=== PATIENT | female | born 1935 | race Caucasian/White ===

== ENCOUNTER 2018-01-12 20:14 | Emergency (ER) | payer MEDICARE ==
[~2018-01-12] VITALS: Ht 154.9 cm; Wt 54.9 kg
[~2018-01-12 20:14] MED LIST: AMLODIPINE BESYL5 MG PO; ASPIR 8181 MG PO; BONIVA150 MG PO; DURAGESIC1 EAC1 TD; FOSAMAX70 MG PO; FUROSEMIDE40 MG PO; IBANDRONATE SO150 MG PO; LIPITOR20 MG PO; LIPITOR40 MG PO; LOSARTAN POTAS100 MG PO; PANTOPRAZOLE SO40 MG PO
[2018-01-12] MEDS ORDERED: DIATRIZOATE MEGL/DIATRIZOA SOD 30 ML BTL PO ONE (21:00)
[2018-01-12 21:26] LABS: BILIRUBIN,URINE NEGATIVE (NEGATIVE); CLARITY,URINE CLEAR (CLEAR); COLOR,URINE YELLOW (YELLOW); KETONES,URINE NEGATIVE (NEGATIVE); LEUKOCYTE ESTERASE ,URINE TRACE (NEGATIVE); NITRITE,URINE NEGATIVE (NEGATIVE); PROTEIN,URINE DIPSTICK NEGATIVE (NEGATIVE); URINE UROBILINOGEN 0.2 mg/dL (0.2 - 1)
[2018-01-12 21:47] LABS: BACTERIA,URINE RARE /HPF; EPITHELIAL CELLS,URINE FEW /LPF; RBC,URINE 0-5 /HPF (0-5); WBC,URINE (MAN) 0-5 /HPF (0-5)
[2018-01-12 23:02] LABS: BASOPHILS % 0.1 % (0.0-1.0); EOSINOPHILS % 0.1 % (0.0-6.0); HEMATOCRIT 40.1 % (34.2-44.1); HEMOGLOBIN 13.9 g/dL (12.0-16.0); LYMPHOCYTES # (AUTO) 1.4 (1.0-3.2); LYMPHOCYTES % 16.9 % (18.0-39.1); MEAN CORPUSCULAR HEMOGLOBIN 31.7 pg (28-32); MEAN CORPUSCULAR HGB CONC 34.7 g/dL (31-35); MEAN CORPUSCULAR VOLUME 91.3 fL (81-99); MONOCYTES # (AUTO) 0.7 (0.2-0.8); MONOCYTES % 8.3 % (4.4-11.3); NEUTROPHILS % 74.4 % (38.7-80.0); PLATELET COUNT 250 x10e3/uL (140-360); RED BLOOD COUNT 4.39 x10e6/uL (3.6-5.1); RED CELL DISTRIBUTION WIDTH 13.6 % (11.7-14.4)
[2018-01-12 23:16] LABS: INR 1.01; PROTHROMBIN TIME 12.5 seconds (11.9-14.5)
[2018-01-12 23:26] LABS: ALBUMIN 4.1 g/dL (3.5-5.0); ALBUMIN/GLOBULIN RATIO 0.9 (0.8-2.0); ANION GAP 16.8 mmol/L (8-16); CALCIUM 9.7 mg/dL (8.4-10.2); CREATININE, SERUM 1.06 mg/dL (0.57-1.11); POTASSIUM 4.8 mmol/L (3.5-5.1)
--- NOTE | 2018-01-13 00:32 | Diagnostic Imaging Report ---
EXAM: CT ABDOMEN AND PELVIS without IV CONTRAST ORDER DATE: 01/12/2018 8:52 PM Time stamp on Exam: 0000 hours INDICATION: Rectal bleeding, lower abdominal pain COMPARISON: None TECHNIQUE: The abdomen and pelvis were scanned using a multidetector helical scanner. Coronal and sagittal reformations were obtained. Routine protocol performed. IV Contrast: None Oral Contrast: Gastrografin CTDIvol has been reviewed. It is below the limits set by the Radiation Protocol Committee (RPC). FINDINGS: LOWER THORAX: Emphysematous changes. No consolidations. LIVER: No masses BILIARY: Cholecystectomy. No ductal dilation. SPLEEN: No masses PANCREAS: No masses ADRENALS: No nodules RIGHT KIDNEY: No nephroureterolithiasis or hydronephrosis. LEFT KIDNEY: No nephroureterolithiasis or hydronephrosis. GI TRACT: Large hiatal hernia with the majority of the stomach intrathoracic. No bowel obstruction. No pericolonic inflammation. VESSELS: Marked atherosclerotic changes of the abdominal aorta without aneurysm. PERITONEUM/RETROPERITONEUM: No free air or fluid LYMPH NODES: No lymphadenopathy REPRODUCTIVE ORGANS: Appropriate for age. Likely calcified uterine fibroid measuring approximately 1.5 cm. BLADDER: Normal SOFT TISSUES: Normal BONES: Chronic displaced fractures of the right superior and inferior pubic rami and likely nondisplaced old fractures of the left inferior and superior pubic rami. Sclerosis of the bilateral sacrum and linear lucencies consistent with sacral insufficiency fractures. Chronic appearing nondisplaced fracture of the right L5 transverse process. Grade 1 anterolisthesis of L5 with respect to S1. IMPRESSION: No CT findings to explain patient's rectal bleeding and lower abdominal pain. No evidence of diverticulitis or bowel obstruction. Chronic sacral insufficiency fractures, old fractures of the bilateral pubic rami and right L5 transverse process. Large hiatal hernia with nearly the entire stomach intrathoracic. Signed by: Dr. Gely Nice M.D. on 01/13/2018 12:28 AM
== END 2018-01-13 02:27 | disposition home or self-care (01) ==
LOC: ER 20:14
DX: K62.5 Hemorrhage of anus and rectum (principal); K64.4 Residual hemorrhoidal skin tags; I10 Essential (primary) hypertension; E78.5 Hyperlipidemia, unspecified; Z85.048 Personal history of other malignant neoplasm of rectum, rectosigmoid junction, and anus
CPT/HCPCS: 36415; 74176; 80053; 81001; 85025; 85610; 85730; 86850; 86900; 99284

== ENCOUNTER 2018-04-05 14:31 | Inpatient (IN) | payer MEDICARE ==
[~2018-04-05] VITALS: Ht 152.4 cm; Wt 54.9 kg
--- OUTSIDE RECORDS SUMMARY | 2018-04-05 14:35 | XMS REPORT ---
Author Author [facility] Address Unknown Phone Unavailable Care Team Providers Care Efficiency Clerk Name Role Phone ODILIA MARTE Unavailable Unavailable Problems This patient has no known problems. Allergies, Adverse Reactions, Alerts This patient has no known allergies or adverse reactions. Medications This patient has no known medications. Results Test Description Test Time Test Comments Text Results Atomic Results Result Comments CT ABDOMEN/PELVIS WO [place] [address] [place] [address] Patient Name: ITA ALBARRAN MR #: [id number] : 1935 Age/Sex: 82/F Req #: [id number] Adm Physician: Ordered by: ODILIA MARTE MD Report #: [id number] Location: ER Room/Bed: ___ Procedure: [id number] CT/CT ABDOMEN/PELVIS WO Exam Date: 01/12/18 Exam Time: 2358 REPORT STATUS: Signed EXAM: CT ABDOMEN AND PELVIS without IV CONTRAST ORDER DATE: 01/12/2018 8:52 PM Time stamp on Exam: 0000 hours INDICATION: Rectal bleeding, lower abdominal pain COMPARISON: None TECHNIQUE: The abdomen and pelvis were scanned using a multidetector helical scanner. Coronal and sagittal reformations were obtained. Routine protocol performed. IV Contrast: None Oral Contrast: Gastrografin CTDIvol has been reviewed. It is below the limits set by the Radiation Protocol Committee (RPC). FINDINGS: LOWER THORAX: Emphysematous changes. No consolidations. LIVER: No masses BILIARY: Cholecystectomy. No ductal dilation. SPLEEN: No masses PANCREAS: No masses ADRENALS: No nodules RIGHT KIDNEY: No nephroureterolithiasis or hydronephrosis. LEFT KIDNEY: No nephroureterolithiasis or hydronephrosis. GI TRACT: Large hiatal hernia with the majority of the stomach intrathoracic. No bowel obstruction. No pericolonic inflammation. VESSELS: Marked atherosclerotic changes of the abdominal aorta without aneurysm. PERITONEUM/RETROPERITONEUM: No free air or fluid LYMPH NODES: No lymphadenopathy REPRODUCTIVE ORGANS: Appropriate for age. Likely calcified uterine fibroid measuring approximately 1.5 cm. BLADDER: Normal SOFT TISSUES: Normal BONES: Chronic displaced fractures of the right superior and inferior pubic rami and likely nondisplaced old fractures of the left inferior and superior pubic rami. Sclerosis of the bilateral sacrum and linear lucencies consistent with sacral insufficiency fractures. Chronic appearing nondisplaced fracture of the right L5 transverse process. Grade 1 anterolisthesis of L5 with respect to S1. IMPRESSION: No CT findings to explain patient's rectal bleeding and lower abdominal pain. No evidence of diverticulitis or bowel obstruction. Chronic sacral insufficiency fractures , old fractures of the bilateral pubic rami and right L5 transverse process. Large hiatal hernia with nearly the entire stomach intrathoracic. Signed by: Dr. Elio Guerra M.D. on 01/13/2018 12:28 AM Dictated By : ELIO GUERRA MD 002 Transcribed By: TONEY on 01/13/1827 COPY TO: ODILIA MARTE MD
--- OUTSIDE RECORDS SUMMARY | 2018-04-05 14:35 | XMS REPORT | Continuity of Care Document ---
Author Author [facility] Organization [facility] Address [address] [place] [address] Phone Unavailable Care Team Providers Care Orthodontic Laboratory Technician Name Role Phone GÓMEZ MUÑOZ MD PCP Insurance Providers Guarantor Ita Albarran V Address [address] [place] [address] Email [email or web address] Payer AAR Policy Number [id number] Subscriber's Name Ita Albarran Relationship 18 Self / Same As Patient Effective Date 17 Payer Medicare A & B Policy Number [id number] Subscriber's Name WhiteIta Relationship 18 Self / Same As Patient Group Number [id number] Group Name UNEMPLOYED Effective Date 99 Advance Directives Directive Response Recorded Date/Time Does the patient have an advance directive? No 05/06/17 10:00pm If yes, is advance directive on file with [facility]? No 05/06/17 10:00pm If not on file with [facility] will patient provide a copy? No 01/12/18 8:10pm Do you have a Directive to Physician? No 01/12/18 8:10pm Do you have a Medical Power of Ladle Car Operator? No 01/12/18 8:10pm Do you have an out of hospital Do Not Resuscitate Order? No 01/12/18 8:10pm Do you have any special needs we should be aware of? No 01/12/18 8:10pm Do you have a support person here with you today? Yes 01/12/18 8:10pm Did patient receive Notice of Privacy Practices? Yes 01/12/18 8:10pm Did patient receive patient rights and responsibilities? Yes 01/12/18 8:10pm Problems No problem information available. Medications Current Home Medications Medication Dose Units Route Directions Days Qty Instructions Start Date Alendronate Sodium (Fosamax) 70 Mg Tablet 70 Mg Oral Use As Directed Amlodipine Besylate 5 Mg Tablet 5 Mg Oral Daily 30 Tab Aspirin (Aspir 81) 81 Mg Tablet. 81 Mg Oral Daily Atorvastatin Calcium (Lipitor) 20 Mg Tablet 20 Mg Oral Daily 30 Tab Fentanyl (Duragesic) 1 Each Patch.td72 1 Patch Transderm Use As Directed as needed for Pain Losartan Potassium 100 Mg Tablet 100 Mg Oral Daily Pantoprazole Sodium (Protonix) 40 Mg Tablet. 80 Mg Oral Daily Past Home Medications Medication Directions Ordered Status Atorvastatin Calcium (Lipitor) 40 Mg Tablet, 40 Mg Oral Daily Discontinued Furosemide 40 Mg Tablet, 40 Mg Oral Daily Discontinued Ibandronate Sodium 150 Mg Tablet, 150 Mg Oral Mthly Discontinued Ibandronate Sodium (Boniva) 150 Mg Tab, 150 Mg Oral Montyly Discontinued Social History Social History Problem Response Recorded Date/Time Onset Date Status Hx Psychiatric Problems Y - depression 05/06/2017 10:00pm Not Applicable Not Applicable Hx Eating Disorder No 05/06/2017 10:00pm Not Applicable Not Applicable Hx Substance Use Disorder No 05/06/2017 10:00pm Not Applicable Not Applicable Hx Depression Yes 05/06/2017 10:00pm Not Applicable Not Applicable Hx Alcohol Use No 05/06/2017 10:00pm Not Applicable Not Applicable Hx Substance Use Treatment No 05/06/2017 10:00pm Not Applicable Not Applicable Hx Physical Abuse No 05/06/2017 10:00pm Not Applicable Not Applicable Hospital Discharge Instructions No hospital discharge instruction information available. Plan of Care Discharge Date 01/13/18 2:27am Disposition HOME, SELF-CARE Condition at Discharge Stable Instructions/Education Provided Hemorrhoids Forms Provided Work/School Excuse Prescriptions See Medication Section Referrals GÓMEZ MUÑOZ MD Order Date: Call for an appointment Address: [address] [place] [id number] Additional Instructions/Education dc home return to the er with any emergent conditions take meds as directed follow up with pcp Functional Status No functional status information available. Allergies, Adverse Reactions, Alerts Allergen Type Severity Reaction Status Last Updated Morphine Allergy Mild Active 06/06/17 Codeine Allergy Mild SICK Active 06/06/17 Immunizations No immunization information available. Vital Signs Acute Vital Signs Vital Response Date/Time Temperature (Fahrenheit) 97.9 degrees F (97.6 - 99.5) 05/09/2017 8:16am Pulse Pulse Rate (adult) 83 bpm (60 - 90) 06/06/2017 10:04pm Respiratory Rate 20 bpm (12 - 24) 06/06/2017 10:04pm Blood Pressure 158/82 mm Hg 06/06/2017 10:04pm Height 5 ft 1 in 01/12/2018 8:53pm Weight 121 lb 01/12/2018 8:53pm Body Mass Index 22.9 kg/m^2 01/12/2018 8:53pm Results Laboratory Results Test Name Result Units Flags Reference Collection Date/Time Result Date/ Time Comments Creatine Kinase 38 IU/L 29-168 05/06/2017 2:32pm 05/06/2017 3:32pm Creatine Kinase MB 0.60 ng/mL 0.00-5.00 05/06/2017 2:32pm 05/06/2017 3: 32pm Troponin I 0.010 ng/mL 0-0.300 05/06/2017 2:32pm 05/06/2017 3:32pm White Blood Count 8.03 x10e3/uL 4.8-10.8 01/12/2018 10:31pm 01/12/2018 11:04pm Red Blood Count 4.39 x10e6/uL 3.6-5.1 01/12/2018 10:31pm 01/12/2018 11: 04pm Hemoglobin 13.9 g/dL 12.0-16.0 01/12/2018 10:31pm 01/12/2018 11:04pm Hematocrit 40.1 % 34.2-44.1 01/12/2018 10:31pm 01/12/2018 11:04pm Mean Corpuscular Volume 91.3 fL 81-99 01/12/2018 10:31pm 01/12/2018 11: 04pm Mean Corpuscular Hemoglobin 31.7 pg 28-32 01/12/2018 10:[facility] 2017 11:04pm Mean Corpuscular Hemoglobin Concent 34.7 g/dL 31-35 01/12/2018 10:[facility] 01/12/2018 11:04pm Red Cell Distribution Width 13.6 % 11.7-14.4 01/12/2018 10:[facility] 2017 11:04pm Platelet Count 250 x10e3/uL 140-360 01/12/2018 10:[facility] 01/12/2018 11: 04pm Neutrophils (%) (Auto) 74.4 % 38.7-80.0 01/12/2018 10:[facility] 01/12/2018 11:04pm Lymphocytes (%) (Auto) 16.9 % L 18.0-39.1 01/12/2018 10:[facility] 01/12/2018 11:04pm Monocytes (%) (Auto) 8.3 % 4.4-11.3 01/12/2018 10:[facility] 01/12/2018 11: 04pm Eosinophils (%) (Auto) 0.1 % 0.0-6.0 01/12/2018 10:[facility] 01/12/2018 11: 04pm Basophils (%) (Auto) 0.1 % 0.0-1.0 01/12/2018 10:[facility] 01/12/2018 11: 04pm IM GRANULOCYTES % 0.2 % 0.0-1.0 01/12/2018 10:[facility] 01/12/2018 11:04pm Neutrophils # (Auto) 6.0 2.1-6.9 01/12/2018 10:[facility] 01/12/2018 11: 04pm Lymphocytes # (Auto) 1.4 1.0-3.2 01/12/2018 10:[facility] 01/12/2018 11: 04pm Monocytes # (Auto) 0.7 0.2-0.8 01/12/2018 10:[facility] 01/12/2018 11:04pm Eosinophils # (Auto) 0.0 0.0-0.4 01/12/2018 10:[facility] 01/12/2018 11: 04pm Basophils # (Auto) 0.0 0.0-0.1 01/12/2018 10:[facility] 01/12/2018 11:04pm Absolute Immature Granulocyte (auto 0.02 x10e3/uL 0-0.1 01/12/2018 10: 31pm 01/12/2018 11:04pm Prothrombin Time 12.5 seconds 11.9-14.5 01/12/2018 10:31pm 01/12/2018 11:18pm Prothromb Time International Ratio 1.01 01/12/2018 10:31pm 2017 11:18pm Oral Anticoagulant Therapy INR Values: 1. Low Intensity Therapy 1.5 - 2.0 2. Moderate Intensity Therapy 2.0 - 3.0 3. High Intensity Therapy(1) 2.5 - 3.5 4. High Intensity Therapy(2) 3.0 - 4.0 5. Panic Value INR > 5.0 Activated Partial Thromboplast Time 32.0 seconds 23.8-35.5 01/12/2018 10 :31pm 01/12/2018 11:18pm Urine Color YELLOW YELLOW 01/12/2018 9:15pm 01/12/2018 9:30pm Urine Clarity CLEAR CLEAR 01/12/2018 9:15pm 01/12/2018 9:30pm Urine Specific [place] 1.010 1.010-1.025 01/12/2018 9:15pm 2017 9:30pm Urine pH 8 H 5 - 7 01/12/2018 9:15pm 01/12/2018 9:30pm Urine Leukocyte Esterase TRACE H NEGATIVE 01/12/2018 9:15pm 2017 9:30pm Urine Nitrite NEGATIVE NEGATIVE 01/12/2018 9:15pm 01/12/2018 9:30pm Urine Protein NEGATIVE NEGATIVE 01/12/2018 9:15pm 01/12/2018 9:30pm Urine Glucose (UA) NEGATIVE NEGATIVE 01/12/2018 9:15pm 01/12/2018 9: 30pm Urine Ketones NEGATIVE NEGATIVE 01/12/2018 9:15pm 01/12/2018 9:30pm Urine Urobilinogen 0.2 mg/dL 0.2 - 1 01/12/2018 9:15pm 01/12/2018 9: 30pm Urine Bilirubin NEGATIVE NEGATIVE 01/12/2018 9:15pm 01/12/2018 9: 30pm Urine Blood 1+ H NEGATIVE 01/12/2018 9:15pm 01/12/2018 9:30pm Urine WBC 0-5 /HPF 0-5 01/12/2018 9:15pm 01/12/2018 9:47pm Urine RBC 0-5 /HPF 0-5 01/12/2018 9:15pm 01/12/2018 9:47pm Urine Bacteria RARE /HPF NONE 01/12/2018 9:15pm 01/12/2018 9:47pm Urine Epithelial Cells FEW /LPF NONE 01/12/2018 9:15pm 01/12/2018 9: 47pm Sodium Level 133 mmol/L L 136-145 01/12/2018 10:31p01/12/2018 11:27pm Potassium Level 4.8 mmol/L 3.5-5.1 01/12/2018 10:31p01/12/2018 11: 27pm Chloride Level 96 mmol/L L 98-107 01/12/2018 10:31p01/12/2018 11:27pm Carbon Dioxide Level 25 mmol/L 22-29 01/12/2018 10:31p01/12/2018 11: 27pm Anion Gap 16.8 mmol/L H 8-16 01/12/2018 10:31p01/12/2018 11:27pm Blood Urea Nitrogen 9 mg/dL 7-01/12/2018 10:01/12/2018 11:27pm Creatinine 1.06 mg/dL 0.57-1.11 01/12/2018 10:01/12/2018 11:27pm BUN/Creatinine Ratio 8 6-01/12/2018 10:31p01/12/2018 11:27pm Estimat Glomerular Filtration Rate 50 ML/MIN L 60- 01/12/2018 10:31p 11:27pm Ranges were taken from the National Kidney Disease Education Program and the National Kidney Foundation literature. Reference ranges: 60 or greater: Normal 16-59 (for 3 consecutive months): Chronic kidney disease 15 or less: Kidney failure Glucose Level 106 mg/dL 74-118 01/12/2018 10:31p01/12/2018 11:27pm Calcium Level 9.7 mg/dL 8.4-10.2 01/12/2018 10:31p01/12/2018 11:27pm Total Bilirubin 0.6 mg/dL 0.2-1.2 01/12/2018 10:31p01/12/2018 11: 27pm Aspartate Amino Transf (AST/SGOT) 30 IU/L 5-34 01/12/2018 10:31pm 01/12 11:27pm Alanine Aminotransferase (ALT/SGPT) 19 IU/L 0-55 01/12/2018 10:31pm 11:27pm Total Protein 8.6 g/dL H 6.5-8.1 01/12/2018 10:31pm 01/12/2018 11:27pm Albumin 4.1 g/dL 3.5-5.0 01/12/2018 10:31pm 01/12/2018 11:27pm Globulin 4.5 g/dL H 2.3-3.5 01/12/2018 10:31pm 01/12/2018 11:27pm Albumin/Globulin Ratio 0.9 0.8-2.0 01/12/2018 10:31pm 01/12/2018 11: 27pm Alkaline Phosphatase 64 IU/L 40-150 01/12/2018 10:31pm 01/12/2018 11: 27pm Procedures Procedure Status Date Provider(s) CT of abdomen and pelvis without contrast Active 03/26/[address] of abdomen and pelvis without contrast Active 04/21/[address] of abdomen and pelvis without contrast Active 01/12/18 ODILIA MARTE MD Encounters Encounter Location Arrival/Admit Date Discharge/Depart Date Attending Provider [facility]ed [facility] 01/12/18 8:14pm 2:27am ODILIA MARTE MD [facility]arted Emergency [facility] 06/06/17 5:01pm 10:10pm NILES CASTANON MD Discharged Inpatient (obs) [facility] 05/06/17 5:03pm 11:11am GÓMEZ MUÑOZ MD Registered Clinic [facility] 05/06/17 12:50pm GÓMEZ MUÑOZ MD Registered Clinic [facility] 04/21/17 2:47pm FARHANA DONG MD Registered Clinic [facility] 03/26/17 10:36am LIO ANDERSON MD
[2018-04-05] MEDS ORDERED: ONDANSETRON HCL 4 MG ORAL DISINTEGRATING TAB PO ONE (15:15)
--- NOTE | 2018-04-05 16:36 | Diagnostic Imaging Report ---
Abdomen/KUB INDICATION: Bloating, constipation COMPARISON: CT abdomen/pelvis 01/12/2018. FINDINGS: Image obtained at 1556 hours. Lines, tubes: None Bowel: Gaseous distention of the large bowel without significant dilatation. No dilated small bowel loops. No significant stool burden in the colon. No pneumatosis Calcifications: Pelvic phleboliths are redemonstrated. Cholecystectomy clips are stable. Organomegaly: None Bones: Diffusely demineralized. Levoscoliosis of the lumbar spine is stable. IMPRESSION: Gaseous distention of the large bowel without significant stool burden. No dilated small bowel loops. Signed by: Dr. Abbie Boone MD on 04/05/2018 4:32 PM
[2018-04-05] MEDS ORDERED: HYDROMORPHONE 1MG/1ML INJ IV STA ×2 (16:58→21:12)
[2018-04-05] MEDS ORDERED: SODIUM CHLORIDE 0.9% 1000ML 1,000 ML IV STA (16:58)
[2018-04-05 17:40] LABS: BASOPHILS % 0.4 % (0.0-1.0); EOSINOPHILS % 0.2 % (0.0-6.0); HEMATOCRIT 37.1 % (34.2-44.1); HEMOGLOBIN 12.8 g/dL (12.0-16.0); LYMPHOCYTES # (AUTO) 1.1 (1.0-3.2); MEAN CORPUSCULAR HEMOGLOBIN 32.7 pg (28-32); MEAN CORPUSCULAR HGB CONC 34.5 g/dL (31-35); MEAN CORPUSCULAR VOLUME 94.9 fL (81-99); MONOCYTES # (AUTO) 0.5 (0.2-0.8); MONOCYTES % 8.9 % (4.4-11.3); NEUTROPHILS # (AUTO) 3.7 (2.1-6.9); NEUTROPHILS % 69.3 % (38.7-80.0); PLATELET COUNT 263 x10e3/uL (140-360); RED BLOOD COUNT 3.91 x10e6/uL (3.6-5.1); RED CELL DISTRIBUTION WIDTH 12.9 % (11.7-14.4)
[2018-04-05 17:41] LABS: CLARITY,URINE SL CLOUDY (CLEAR); COLOR,URINE YELLOW (YELLOW); LEUKOCYTE ESTERASE ,URINE NEGATIVE (NEGATIVE); NITRITE,URINE NEGATIVE (NEGATIVE); PROTEIN,URINE DIPSTICK 2+ (NEGATIVE)
[2018-04-05 17:42] LABS: BILIRUBIN,URINE NEGATIVE (NEGATIVE); KETONES,URINE NEGATIVE (NEGATIVE); URINE UROBILINOGEN 0.2 mg/dL (0.2 - 1)
[2018-04-05 17:55] LABS: AMORPHOUS SEDIMENT,URINE MANY (FEW); BACTERIA,URINE MANY /HPF; WBC,URINE (MAN) 0-5 /HPF (0-5)
[2018-04-05 17:57] LABS: ALANINE AMINOTRANSFERASE 16 IU/L (0-55); ALBUMIN 3.8 g/dL (3.5-5.0); ALBUMIN/GLOBULIN RATIO 1.1 (0.8-2.0); ALKALINE PHOSPHATASE 69 IU/L (40-150); ANION GAP 14.5 mmol/L (8-16); BLOOD UREA NITROGEN 11 mg/dL (7-26); BUN/CREATININE RATIO 15 (6-25); CALCIUM 9.9 mg/dL (8.4-10.2); CARBON DIOXIDE 27 mmol/L (22-29); CHLORIDE 99 mmol/L (98-107); CREATININE, SERUM 0.74 mg/dL (0.57-1.11); EST GLOMERULAR FILTRATION RATE > 60 ML/MIN (60-); GLUCOSE 106 mg/dL (74-118); POTASSIUM 3.5 mmol/L (3.5-5.1); SODIUM 137 mmol/L (136-145)
[2018-04-05] MEDS ORDERED: DIATRIZOATE MEGL/DIATRIZOA SOD 30 ML BTL PO ONE (18:18)
--- NOTE | 2018-04-05 18:25 | Diagnostic Imaging Report ---
1 view chest x-ray INDICATION: Rectal bleeding, nausea, constipation COMPARISON: Abdomen x-ray 04/05/2018, CT abdomen/pelvis 01/12/2018 chest x-ray 04/09/2008 FINDINGS: Frontal view of the chest obtained at 1803 hours. The cardiac silhouette is normal. The aorta is ectatic. The pulmonary vascular markings are normal. A hiatal hernia identified on previous exam is not visible on this image. The lungs demonstrate mild eventration of the left diaphragm. No mass or infiltrate. The costophrenic angles are sharp. There is no pneumothorax. The osseous structures are intact and normal in morphology. IMPRESSION: 1. Eventration of the left diaphragm. No acute pulmonary process. 2. Stable aortic ectasia 3. Hiatal hernia not visible on this image. Signed by: Dr. Abbie Booen MD on 04/05/2018 6:21 PM
[2018-04-05] MEDS ORDERED: ONDANSETRON HCL 4 MG ORAL DISINTEGRATING TAB ONE (19:05)
--- NOTE | 2018-04-05 20:04 | Diagnostic Imaging Report ---
EXAM: CT Abdomen and Pelvis WITHOUT contrast INDICATION: Abdominal pain COMPARISON: 01/12/2018 TECHNIQUE: Abdomen and pelvis were scanned utilizing a multidetector helical scanner from the lung base to the pubic symphysis without administration of IV contrast. Absence of intravenous contrast decreases sensitivity for detection of focal lesions and vascular pathology. Coronal and sagittal reformations were obtained. Routine protocol was performed. IV CONTRAST: None. ORAL CONTRAST: Gastrografin RADIATION DOSE: Total DLP: 301.54 mGy*cm Estimated effective dose: (DLP x 0.015 x size factor) mSv COMPLICATIONS: None FINDINGS: LINES and TUBES: None. LOWER THORAX: Large sliding hiatal hernia containing air-fluid level. The lung bases are clear. HEPATOBILIARY: No focal hepatic lesions. No biliary ductal dilation. GALLBLADDER: There are cholecystectomy clips. SPLEEN: No splenomegaly. PANCREAS: No focal masses or ductal dilatation. ADRENALS: No adrenal nodules KIDNEYS/URETERS: No hydronephrosis. No cystic or solid mass lesions. No stones. GI TRACT: Diffuse dilatation and large amount of fluid throughout the colon to the level of the splenic flexure . Appendix is not clearly identified. There is however no fat stranding or adenopathy in the right lower quadrant to suggest appendicitis. Small amount of inspissated stool noted in the rectum PELVIC ORGANS/BLADDER: Remarkable for uterine fibroids partially calcified.. LYMPH NODES: No lymphadenopathy. VESSELS: There is moderate atherosclerotic disease in the aorta and major arterial branches. PERITONEUM / RETROPERITONEUM: Small amount of free fluid in the pelvis. BONES: There are severe degenerative changes in the lumbar spine. Not healing chronic fracture of the inferior and superior right pubic rami SOFT TISSUES: Unremarkable. IMPRESSION: 1. Large sliding hiatal hernia with air-fluid level. Correlate for gastric outlet. Volvulus is unlikely 2. Distended fluid-filled colon suspicious for enterocolitis. 3. Otherwise, no additional findings in the abdomen and pelvis Signed by: Dr. Ryan Lorenzo M.D. on 04/05/2018 8:00 PM
[2018-04-05] MEDS ORDERED: PANTOPRAZOLE 40 MG 10ML VIAL IV STA (20:50)
[2018-04-05] MEDS ORDERED: PIPER-TAZ 3.375 GM 50 ML IV ONE (21:00)
[2018-04-05] MEDS: SODIUM CHLORIDE 0.9% 1000ML 1,000 ML IV SCH (21:21)
[2018-04-05] MEDS ORDERED: HYDROMORPHONE 1MG/1ML INJ IV PRN (21:30)
[2018-04-05] MEDS: PIPER-TAZ 3.375 GM / NS 50ML IV SCH (21:44)
[2018-04-05 23:25] VITALS: BP 169/82
[2018-04-05] MEDS ORDERED: ONDANSETRON HCL INJ 2 MG/ML VIAL IV PRN (23:45)
[2018-04-05 23:56] VITALS: BP 169/82
[2018-04-06] MEDS ORDERED: HYDROMORPHONE 1MG/1ML INJ IV PRN (00:33)
[2018-04-06] MEDS: ONDANSETRON HCL 4 MG ORAL DISINTEGRATING TAB PO PRN ×2 (00:50→14:53)
[2018-04-06] MEDS: HYDROMORPHONE 2MG/ML INJ IV PRN ×2 (01:22→13:18)
[2018-04-06 04:30] VITALS: BP 167/75
[2018-04-06] MEDS: PIPER-TAZ 3.375 GM / NS 50ML IV SCH ×3 (05:35→22:24)
[2018-04-06 06:16] LABS: BASOPHILS % 0.2 % (0.0-1.0); HEMATOCRIT 36.9 % (34.2-44.1); LYMPHOCYTES # (AUTO) 0.7 (1.0-3.2); LYMPHOCYTES % 12.1 % (18.0-39.1); MEAN CORPUSCULAR HEMOGLOBIN 31.3 pg (28-32); MEAN CORPUSCULAR HGB CONC 32.5 g/dL (31-35); MEAN CORPUSCULAR VOLUME 96.1 fL (81-99); MONOCYTES # (AUTO) 0.3 (0.2-0.8); MONOCYTES % 4.7 % (4.4-11.3); NEUTROPHILS # (AUTO) 4.5 (2.1-6.9); PLATELET COUNT 216 x10e3/uL (140-360); RED BLOOD COUNT 3.84 x10e6/uL (3.6-5.1); RED CELL DISTRIBUTION WIDTH 12.9 % (11.7-14.4)
[2018-04-06] MEDS: METRONIDAZOLE 500MG/NS 100ML 100 ML IV SCH ×3 (06:36→22:24)
[2018-04-06 06:45] LABS: ALANINE AMINOTRANSFERASE 43 IU/L (0-55); ALBUMIN 3.4 g/dL (3.5-5.0); ALKALINE PHOSPHATASE 73 IU/L (40-150); AMYLASE 88 U/L (25-125); ANION GAP 14.5 mmol/L (8-16); BLOOD UREA NITROGEN 12 mg/dL (7-26); BUN/CREATININE RATIO 17 (6-25); CALCIUM 8.9 mg/dL (8.4-10.2); CARBON DIOXIDE 23 mmol/L (22-29); CHLORIDE 104 mmol/L (98-107); EST GLOMERULAR FILTRATION RATE > 60 ML/MIN (60-); GLUCOSE 143 mg/dL (74-118); LIPASE 21 U/L (8-78); POTASSIUM 4.5 mmol/L (3.5-5.1); SODIUM 137 mmol/L (136-145)
[2018-04-06 07:00] VITALS: BP 161/92
[2018-04-06 08:00] VITALS: BP 161/92
[2018-04-06 08:11] LABS: LYMPHOCYTES % (MANUAL) 9 % (19-48); MONOCYTES % (MANUAL) 5 % (3.4-9.0); NEUTROPHILS % (MANUAL) 86 % (40-74)
[2018-04-06 08:12] LABS: ANISOCYTOSIS SLIGHT; PLATELET ESTIMATE ADEQUATE; PLATELET MORPHOLOGY COMMENT NORMAL; RBC MORPHOLOGY COMMENT NORMAL
[2018-04-06] MEDS: PANTOPRAZOLE 40 MG 10ML VIAL IV SCH (09:35)
[2018-04-06 12:00] VITALS: BP 150/78
[2018-04-06] MEDS: HYDRALAZINE HCL 20 MG/ML VIAL IV PRN (12:00)
[2018-04-06] MEDS: SODIUM CHLORIDE 0.9% 1000ML 1,000 ML IV SCH ×2 (13:14→22:24)
[2018-04-06] MEDS: PROMETHAZINE 25MG/ NS 50ML (IV) IV PRN (14:30)
[2018-04-06] MEDS ORDERED: MINERAL OIL 132 ML BTL PR NR (15:00)
--- NOTE | 2018-04-06 15:10 | Consultation ---
DATE OF CONSULTATION: GASTROENTEROLOGY CONSULT REFERRING PHYSICIAN: Dr. Arenas REASON FOR CONSULTATION: Enterocolitis abdominal pain. HISTORY OF PRESENT ILLNESS: Ms. Horta is a pleasant 83-year-old woman with chronic constipation. She says it is very severe at times. On Friday she felt very bloated and uncomfortable and had not had a bowel movement in some time. She drank magnesium citrate. It did not help her at all. After that she had Epsom salt in water which also did not relieve her symptoms. She took laxatives. She finally developed such significant crampy lower abdominal pain that she came to the ER. She has had some small liquid stools but otherwise has not had adequate defecation. She still has lower abdomen cramping which is currently mild to moderate in severity, nonradiating. She is not having any nausea or vomiting. She denies any epigastric pain. She denies any dysphagia. She notes she has a large hiatal hernia. She has not had any bleeding. PAST MEDICAL HISTORY 1. Anal cancer status post radiation. 2. Hypertension. 3. Hiatal hernia. 4. Chronic constipation. Her last colonoscopy was [address] Braden. MEDICATION/ALLERGIES: Are reviewed, please see MAR and medication reconciliation form. FAMILY HISTORY: Positive for lung cancer in daughter that she lives with that has spread to the liver. SOCIAL HISTORY: No current alcohol, tobacco or illicit substance. REVIEW OF SYSTEMS: Ten system review is positive for that mentioned in history of present illness, otherwise unremarkable. PHYSICAL EXAMINATION GENERAL: She is calm, alert, pleasant. no acute distress. HEENT: Pupils equal, round and reactive to light. NECK: Supple. LUNGS: Clear. CARDIOVASCULAR: S1, S2. ABDOMEN: Soft. She is tender in the lower abdomen. No rebound, guarding or masses. EXTREMITIES: No clubbing, cyanosis or edema. PSYCH: Calm, cooperative. NEUROLOGIC: Nonfocal. HEME/ONC: No bruising or adenopathy. Electronic health records reviewed for laboratory and radiologic studies as well as history. ASSESSMENT 1. Constipation. 2. Multiple laxatives and bowel regimens. 3. Lower abdominal pain. 4. Possible enterocolitis. 5. Hiatal hernia with concern for potential for complications. 6. History of anal cancer status post radiation with last colonoscopy with Dr. Braden about 2 years ago. PLAN: At the current time I agree with continuing antibiotics and a bowel regimen. I would like to have Dr. Braden regarding the hernia and current symptoms. Will follow clinically. Will give Bentyl for cramping. Thank you very much for asking me to see Ms. Horta. Any questions or concerns please do not hesitate to contact me. Job#: [id number]
[2018-04-06] MEDS ORDERED: ONDANSETRON HCL INJ 2 MG/ML VIAL IV PRN (15:15)
[2018-04-06 16:00] VITALS: BP 132/70
[2018-04-06 20:00] VITALS: BP 183/79
[2018-04-06] MEDS: ZOLPIDEM TARTRATE 10 MG TAB PO SCH (23:57)
[2018-04-07] VITALS (8 sets, daily range): BP systolic 133–183; BP diastolic 62–80
[2018-04-07] MEDS: SODIUM CHLORIDE 0.9% 1000ML 1,000 ML IV SCH ×2 (05:14→13:56)
[2018-04-07] MEDS: METRONIDAZOLE 500MG/NS 100ML 100 ML IV SCH ×3 (05:47→22:40)
[2018-04-07] MEDS: PIPER-TAZ 3.375 GM / NS 50ML IV SCH ×3 (06:15→21:30)
[2018-04-07] MEDS: PANTOPRAZOLE 40 MG 10ML VIAL IV SCH (09:29)
[2018-04-07] MEDS: HYDROMORPHONE 2MG/ML INJ IV PRN (17:36)
[2018-04-07] MEDS ORDERED: CITRATE OF MAGNESIA 300ML BOTTLE PO NR (20:00)
[2018-04-07] MEDS: ZOLPIDEM TARTRATE 10 MG TAB PO SCH (21:00)
[2018-04-07] MEDS: ONDANSETRON HCL 4 MG ORAL DISINTEGRATING TAB PO PRN (22:00)
[2018-04-07] MEDS: PROMETHAZINE 25MG/ NS 50ML (IV) IV PRN (22:41)
[2018-04-08] VITALS (8 sets, daily range): BP systolic 151–175; BP diastolic 71–79
[2018-04-08] MEDS: SODIUM CHLORIDE 0.9% 1000ML 1,000 ML IV SCH ×2 (00:55→05:14)
[2018-04-08] MEDS: ONDANSETRON HCL 4 MG ORAL DISINTEGRATING TAB PO PRN (02:54)
[2018-04-08] MEDS: HYDROMORPHONE 2MG/ML INJ IV PRN ×2 (03:00→12:06)
[2018-04-08] MEDS: HYDRALAZINE HCL 20 MG/ML VIAL IV PRN (04:28)
[2018-04-08] MEDS: PIPER-TAZ 3.375 GM / NS 50ML IV SCH ×3 (04:40→21:16)
[2018-04-08] MEDS: METRONIDAZOLE 500MG/NS 100ML 100 ML IV SCH ×3 (06:05→22:36)
[2018-04-08] MEDS ORDERED: LIDOCAINE HCL 1% LOCAL INJ 20 ML VIAL ONE (08:22)
[2018-04-08] MEDS ORDERED: BUPIVACAINE 0.25%/EPI 30ML SDV INJ ONE (08:22)
[2018-04-08] MEDS ORDERED: LIDOCAINE HCL 2% 30 ML TUBE ONE (08:22)
[2018-04-08] MEDS ORDERED: GELATIN SPONGE SZ 100 ONE (08:23)
[2018-04-08] MEDS: LOSARTAN POTASSIUM 100 MG TAB PO SCH (08:36)
[2018-04-08] MEDS: ASPIRIN 81 MG CHEW TAB PO SCH (08:36)
[2018-04-08] MEDS: PANTOPRAZOLE 40 MG 10ML VIAL IV SCH (08:36)
[2018-04-08] MEDS: AMLODIPINE BESYLATE 5 MG TAB PO SCH (08:37)
[2018-04-08] MEDS: ATORVASTATIN 20 MG TAB PO SCH (08:37)
--- NOTE | 2018-04-08 13:21 | Operative Report ---
DATE OF PROCEDURE: April 08, 2018 PREOPERATIVE DIAGNOSIS: Anal stricture. 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 OPERATIONS PERFORMED 1. Examination under anesthesia. 2. Anal dilatation. ANESTHESIA: General. COMPLICATIONS: None. ESTIMATED BLOOD LOSS: Minimal. DESCRIPTION OF PROCEDURE: With the patient lying in bed in the lithotomy position under good general anesthesia, anal examination at that point revealed some scarring and thickening of the perianal skin. We were only able to at first get the pinky finger in place as there was a severe stricture likely from radiation. This felt like a smooth stricture. We then slowly and carefully dilated this up so that we could get the index finger in and then dilated a little bit bigger than that to the point where we could actually introduce a rigid scope in. However, immediately upon entering the rectal vault, there was a large amount of stool that was present, which made it impossible to look at the mucosa of the rectal or perianal area. This is a result of the patient being unable to evacuate her stools in a proper fashion due to the stricture. We went ahead then and proceeded to dilate her a little bit more. We decided that since she was not properly prepped we could not at this point really do any significant biopsies or certainly no kind of release of any of the stricture. So, therefore we dilated her as widely as we could. This created a small amount of bleeding. We decided to go ahead and hopefully we can get her better prepped and bring her back at a later date for a more definitive release of the stricture. She could potentially require a colostomy if we are not able to get a good release. This is a total circumferential stricture from the radiation. The patient tolerated the procedure well, and returned to the recovery room in stable condition. Job#: [id number] [id number]
[2018-04-08] MEDS: TRIAMCINOLONE 0.1% OINTMENT 15 GM TUBE TP SCH ×2 (15:17→20:52)
[2018-04-08] MEDS ORDERED: FENTANYL CITRATE/PF 100MCG/2 ML INJ ONE (17:17)
[2018-04-08] MEDS ORDERED: SEVOFLURANE INHAL SOLN 250 ML PEN BTL ONE (18:12)
[2018-04-08] MEDS ORDERED: ONDANSETRON HCL INJ 2 MG/ML VIAL ONE (18:12)
[2018-04-08] MEDS ORDERED: PROPOFOL IV EMULSION 10 MG/ML 20 ML VIAL ONE (18:12)
[2018-04-08] MEDS: MAGNESIUM HYDROXIDE 30 ML UDC PO SCH (20:54)
[2018-04-08] MEDS: ZOLPIDEM TARTRATE 10 MG TAB PO SCH (23:03)
[2018-04-09 01:18] VITALS: BP 151/86
[2018-04-09] MEDS: PIPER-TAZ 3.375 GM / NS 50ML IV SCH ×3 (05:27→21:29)
[2018-04-09 05:50] VITALS: BP 154/85
[2018-04-09] MEDS: METRONIDAZOLE 500MG/NS 100ML 100 ML IV SCH ×3 (06:09→22:14)
[2018-04-09 06:28] LABS: HEMATOCRIT 28.1 % (34.2-44.1); HEMOGLOBIN 9.4 g/dL (12.0-16.0); LYMPHOCYTES # (AUTO) 0.9 (1.0-3.2); LYMPHOCYTES % 21.8 % (18.0-39.1); MEAN CORPUSCULAR HEMOGLOBIN 32.2 pg (28-32); MEAN CORPUSCULAR HGB CONC 33.5 g/dL (31-35); MEAN CORPUSCULAR VOLUME 96.2 fL (81-99); MONOCYTES # (AUTO) 0.4 (0.2-0.8); MONOCYTES % 10.3 % (4.4-11.3); NEUTROPHILS # (AUTO) 2.6 (2.1-6.9); NEUTROPHILS % 66.4 % (38.7-80.0); PLATELET COUNT 214 x10e3/uL (140-360); RED BLOOD COUNT 2.92 x10e6/uL (3.6-5.1); RED CELL DISTRIBUTION WIDTH 13.2 % (11.7-14.4)
[2018-04-09 06:43] LABS: ALANINE AMINOTRANSFERASE 16 IU/L (0-55); ALBUMIN 2.5 g/dL (3.5-5.0); ALBUMIN/GLOBULIN RATIO 1.1 (0.8-2.0); ALKALINE PHOSPHATASE 46 IU/L (40-150); BLOOD UREA NITROGEN 7 mg/dL (7-26); BUN/CREATININE RATIO 11 (6-25); CALCIUM 8.4 mg/dL (8.4-10.2); CARBON DIOXIDE 29 mmol/L (22-29); CHLORIDE 105 mmol/L (98-107); CREATININE, SERUM 0.63 mg/dL (0.57-1.11); EST GLOMERULAR FILTRATION RATE > 60 ML/MIN (60-); GLUCOSE 82 mg/dL (74-118); SODIUM 139 mmol/L (136-145)
[2018-04-09 08:00] VITALS: BP 139/62
[2018-04-09] MEDS: TRIAMCINOLONE 0.1% OINTMENT 15 GM TUBE TP SCH ×3 (09:00→20:41)
[2018-04-09] MEDS: ASPIRIN 81 MG CHEW TAB PO SCH (09:22)
[2018-04-09] MEDS: LOSARTAN POTASSIUM 100 MG TAB PO SCH (09:22)
[2018-04-09] MEDS: PANTOPRAZOLE 40 MG 10ML VIAL IV SCH (09:22)
[2018-04-09] MEDS: ATORVASTATIN 20 MG TAB PO SCH (09:22)
[2018-04-09] MEDS: AMLODIPINE BESYLATE 5 MG TAB PO SCH (09:23)
[2018-04-09] MEDS ORDERED: POTASSIUM CHLORIDE 20 MEQ TAB CR PO NR (09:30)
[2018-04-09 20:00] VITALS: BP 158/76
[2018-04-09] MEDS: MAGNESIUM HYDROXIDE 30 ML UDC PO SCH (21:00)
[2018-04-09 21:29] VITALS: BP 158/76
[2018-04-09] MEDS: ZOLPIDEM TARTRATE 10 MG TAB PO SCH (23:30)
[2018-04-10] MEDS: PROMETHAZINE 25MG/ NS 50ML (IV) IV PRN (00:32)
[2018-04-10 04:00] VITALS: BP 142/65
[2018-04-10] MEDS: PIPER-TAZ 3.375 GM / NS 50ML IV SCH ×3 (05:05→22:00)
[2018-04-10] MEDS: METRONIDAZOLE 500MG/NS 100ML 100 ML IV SCH ×3 (05:42→22:00)
[2018-04-10 07:03] LABS: BASOPHILS % 0.2 % (0.0-1.0); EOSINOPHILS # (AUTO) 0.1 (0.0-0.4); EOSINOPHILS % 1.3 % (0.0-6.0); HEMATOCRIT 30.1 % (34.2-44.1); HEMOGLOBIN 10.2 g/dL (12.0-16.0); LYMPHOCYTES # (AUTO) 0.9 (1.0-3.2); LYMPHOCYTES % 19.4 % (18.0-39.1); MEAN CORPUSCULAR HEMOGLOBIN 32.1 pg (28-32); MEAN CORPUSCULAR HGB CONC 33.9 g/dL (31-35); MEAN CORPUSCULAR VOLUME 94.7 fL (81-99); MONOCYTES # (AUTO) 0.4 (0.2-0.8); MONOCYTES % 9.6 % (4.4-11.3); NEUTROPHILS # (AUTO) 3.2 (2.1-6.9); NEUTROPHILS % 69.3 % (38.7-80.0); PLATELET COUNT 213 x10e3/uL (140-360); RED BLOOD COUNT 3.18 x10e6/uL (3.6-5.1); RED CELL DISTRIBUTION WIDTH 12.7 % (11.7-14.4)
[2018-04-10 07:30] LABS: ALANINE AMINOTRANSFERASE 18 IU/L (0-55); ALBUMIN 2.9 g/dL (3.5-5.0); ALBUMIN/GLOBULIN RATIO 1.1 (0.8-2.0); ALKALINE PHOSPHATASE 46 IU/L (40-150); ANION GAP 9.5 mmol/L (8-16); BLOOD UREA NITROGEN < 5 mg/dL (7-26); BUN/CREATININE RATIO 8 (6-25); CALCIUM 8.9 mg/dL (8.4-10.2); CARBON DIOXIDE 29 mmol/L (22-29); CHLORIDE 105 mmol/L (98-107); EST GLOMERULAR FILTRATION RATE > 60 ML/MIN (60-); GLUCOSE 85 mg/dL (74-118); POTASSIUM 3.5 mmol/L (3.5-5.1); SODIUM 140 mmol/L (136-145)
[2018-04-10 07:45] VITALS: BP 160/80
[2018-04-10 08:00] VITALS: BP 160/80
[2018-04-10] MEDS: ASPIRIN 81 MG CHEW TAB PO SCH (09:13)
[2018-04-10] MEDS: AMLODIPINE BESYLATE 5 MG TAB PO SCH (09:13)
[2018-04-10] MEDS: PANTOPRAZOLE 40 MG 10ML VIAL IV SCH (09:13)
[2018-04-10] MEDS: ATORVASTATIN 20 MG TAB PO SCH (09:13)
[2018-04-10] MEDS: LOSARTAN POTASSIUM 100 MG TAB PO SCH (09:14)
[2018-04-10] MEDS: TRIAMCINOLONE 0.1% OINTMENT 15 GM TUBE TP SCH ×3 (09:14→21:00)
[2018-04-10 12:00] VITALS: BP 149/75
[2018-04-10 16:00] VITALS: BP 146/74
[2018-04-10 20:10] VITALS: BP 187/102
[2018-04-10] MEDS ORDERED: SODIUM CHLORIDE 0.9% 250ML 250 ML ONE (20:32)
[2018-04-10] MEDS: ZOLPIDEM TARTRATE 10 MG TAB PO SCH (21:00)
[2018-04-10] MEDS: MAGNESIUM HYDROXIDE 30 ML UDC PO SCH (21:00)
[2018-04-11] VITALS: BP 134/69
[2018-04-11 01:57] VITALS: BP 187/102
[2018-04-11 05:49] VITALS: BP 139/66
[2018-04-11] MEDS: PIPER-TAZ 3.375 GM / NS 50ML IV SCH (06:00)
[2018-04-11] MEDS: METRONIDAZOLE 500MG/NS 100ML 100 ML IV SCH (06:00)
[2018-04-11 07:05] VITALS: BP 125/60
[2018-04-11 08:00] VITALS: BP 125/60
[2018-04-11] MEDS: ASPIRIN 81 MG CHEW TAB PO SCH (08:27)
[2018-04-11] MEDS: PANTOPRAZOLE 40 MG 10ML VIAL IV SCH (08:27)
[2018-04-11] MEDS: ATORVASTATIN 20 MG TAB PO SCH (08:27)
[2018-04-11] MEDS: LOSARTAN POTASSIUM 100 MG TAB PO SCH (08:27)
[2018-04-11] MEDS: TRIAMCINOLONE 0.1% OINTMENT 15 GM TUBE TP SCH (08:28)
[2018-04-11] MEDS ORDERED: AMLODIPINE BESYLATE 5 MG TAB PO SCH (09:00)
== END 2018-04-11 11:55 | disposition home or self-care (01) | DRG 394 ==
LOC: ER 14:31 → ERHOLD 21:31 → MED/SURG2 22:44 → OBSVTOIN 04-06 11:18
PROVIDERS: ADMIT Internal Medicine; ATTEND Internal Medicine
PROC: 0D7Q7ZZ Dilation of Anus, Via Natural or Artificial Opening (ICD-10-PCS; principal; 2018-04-08 09:36)
DX: K62.4 Stenosis of anus and rectum (principal); N30.01 Acute cystitis with hematuria; K91.89 Other postprocedural complications and disorders of digestive system; K52.9 Noninfective gastroenteritis and colitis, unspecified; K21.9 Gastro-esophageal reflux disease without esophagitis; D64.9 Anemia, unspecified; I10 Essential (primary) hypertension; Z85.048 Personal history of other malignant neoplasm of rectum, rectosigmoid junction, and anus; Z88.5 Allergy status to narcotic agent; K59.00 Constipation, unspecified; K44.9 Diaphragmatic hernia without obstruction or gangrene
CPT/HCPCS: 36415; 71045; 74018; 74176; 80053; 81001; 82150; 83690; 83735; 85025; 87086; 93005; 96361; 96367; 96376; 99284; G0378; J0360; J2001; J2405; J2543; J2550; J7030; J7050

== ENCOUNTER 2018-07-02 11:42 | Observation (INO) | payer MEDICARE ==
[~2018-07-02] VITALS: Ht 154.9 cm; Wt 55.4 kg
[2018-07-02 12:27] LABS: BASOPHILS % 0.2 % (0.0-1.0); EOSINOPHILS % 0.6 % (0.0-6.0); HEMATOCRIT 39.3 % (34.2-44.1); HEMOGLOBIN 13.4 g/dL (12.0-16.0); LYMPHOCYTES # (AUTO) 1.1 (1.0-3.2); LYMPHOCYTES % 20.6 % (18.0-39.1); MEAN CORPUSCULAR HEMOGLOBIN 32.7 pg (28-32); MEAN CORPUSCULAR HGB CONC 34.1 g/dL (31-35); MEAN CORPUSCULAR VOLUME 95.9 fL (81-99); MONOCYTES # (AUTO) 0.5 (0.2-0.8); MONOCYTES % 10.1 % (4.4-11.3); NEUTROPHILS # (AUTO) 3.7 (2.1-6.9); NEUTROPHILS % 68.3 % (38.7-80.0); PLATELET COUNT 279 x10e3/uL (140-360); RED CELL DISTRIBUTION WIDTH 13.2 % (11.7-14.4)
[2018-07-02 12:42] LABS: ALANINE AMINOTRANSFERASE 20 IU/L (0-55); ALBUMIN 3.7 g/dL (3.5-5.0); ALBUMIN/GLOBULIN RATIO 0.9 (0.8-2.0); ALKALINE PHOSPHATASE 62 IU/L (40-150); ANION GAP 14.7 mmol/L (8-16); BLOOD UREA NITROGEN 10 mg/dL (7-26); BUN/CREATININE RATIO 13 (6-25); CALCIUM 10.1 mg/dL (8.4-10.2); CARBON DIOXIDE 27 mmol/L (22-29); CHLORIDE 99 mmol/L (98-107); CREATININE, SERUM 0.77 mg/dL (0.57-1.11); EST GLOMERULAR FILTRATION RATE > 60 ML/MIN (60-); GLUCOSE 107 mg/dL (74-118); POTASSIUM 3.7 mmol/L (3.5-5.1); SODIUM 137 mmol/L (136-145)
[2018-07-02 13:50] LABS: BILIRUBIN,URINE NEGATIVE (NEGATIVE); CLARITY,URINE CLEAR (CLEAR); COLOR,URINE YELLOW (YELLOW); KETONES,URINE NEGATIVE (NEGATIVE); LEUKOCYTE ESTERASE ,URINE NEGATIVE (NEGATIVE); NITRITE,URINE NEGATIVE (NEGATIVE); PROTEIN,URINE DIPSTICK NEGATIVE (NEGATIVE); URINE UROBILINOGEN 0.2 mg/dL (0.2 - 1)
[2018-07-02 14:02] LABS: BACTERIA,URINE RARE /HPF; EPITHELIAL CELLS,URINE RARE /LPF; RBC,URINE 21-50 /HPF (0-5); WBC,URINE (MAN) 0-5 /HPF (0-5)
[2018-07-02] MEDS ORDERED: DIPHENHYDRAMINE HCL INJ 50 MG/ML VIAL IV ONE (15:30)
--- NOTE | 2018-07-02 16:05 | Diagnostic Imaging Report ---
EXAM: Transabdominal and Transvaginal Pelvic Ultrasound INDICATION: Vaginal bleeding, occasional right pelvic pain COMPARISON: CT abdomen pelvis 04/05/2018 TECHNIQUE: Grayscale transverse and sagittal transabdominal and transvaginal images were obtained of the pelvis. Transvaginal imaging was medically necessary to better evaluate the endometrium. CLINICAL HISTORY: 83 year old postmenopausal patient is FINDINGS: Limited transvaginal views due to pain secondary to prior rectal cancer radiation therapy Uterus: Orientation: Anteverted Size: 6.4 x 2.5 x 4.5 cm, Normal Mass: 1.5 x 0.8 x 1.4 cm hyperechoic shadowing lesion in the uterus consistent with previously visualized hyperdensity on CT dated 04/05/2018 Cervix: Normal Endometrium: Thickness: 0.7 cm, thickened. Appearance: Homogeneous echotexture without focal thickening. Right ovary: Not visualized. Left ovary: Not visualized. Adnexa: No focal lesions. Cul-de-sac: No free fluid IMPRESSION: 1. Thickened endometrial stripe for postmenopausal patient with vaginal bleeding. Differential diagnosis includes endometrial hyperplasia or endometrial neoplasm. A polyp is less likely given the diffuse nature of the finding. Recommend PERL DEVELOPER evaluation. 2. Atrophic uterus. 1.5 cm hyperechoic shadowing lesion in the uterus likely represents the previously visualized calcified fibroid. 3. Ovaries could not be visualized. Signed by: Dr. Christiano Louise M.D. on 07/02/2018 4:01 PM
--- NOTE | 2018-07-02 16:17 | Diagnostic Imaging Report ---
EXAMINATION: CT of the abdomen and pelvis without contrast. TECHNIQUE: Spiral CT images of the abdomen and pelvis were performed from the lung bases to the lesser trochanters. No intravenous contrast was given due to history of iodine allergy. Coronal and sagittal reformatted images were obtained. COMPARISON: CT abdomen and pelvis 04/05/2018 CLINICAL HISTORY:Vaginal bleeding DISCUSSION: ABSENCE OF INTRAVENOUS CONTRAST DECREASES SENSITIVITY FOR DETECTION OF FOCAL LESIONS AND VASCULAR PATHOLOGY. ABDOMEN/PELVIS: LOWER THORAX: Unchanged large sliding hiatal hernia containing most of the stomach. Small right posterior diaphragmatic hernia (sagittal image 36). Lung bases are clear. Atherosclerotic calcification of the aortic valves HEPATOBILIARY: Stable calcified granuloma in hepatic segment (series 2, image 21). No other focal lesions. No intra or extrahepatic biliary ductal dilation. GALLBLADDER: Cholecystectomy clips. SPLEEN: No splenomegaly. PANCREAS: No focal masses or ductal dilatation. ADRENALS: No adrenal nodules. KIDNEYS/URETERS: No hydronephrosis, stones, or solid mass lesions. PELVIC ORGANS/BLADDER: Mild circumferential bladder wall thickening, which is unchanged since the prior exam (series 2, image 62). Atrophic uterus. Stable 1.1 x 1.4 cm calcific density in the uterus, which may represent a calcified fibroid. Linear hyperdensity in the expected location of the endometrial stripe, which is unchanged since the prior exam (sagittal image 62). Multiple pelvic phleboliths. PERITONEUM/RETROPERITONEUM: No free air or fluid. LYMPH NODES: No intra-abdominal,retroperitoneal, pelvic or inguinal lymphadenopathy. VESSELS: Atherosclerotic calcification of the abdominal aorta, aortic branches and iliac vessels. GI TRACT: No bowel dilation or evidence of obstruction. No pericolonic inflammatory changes. BONES AND SOFT TISSUES: No aggressive lytic lesions. Generalized osteopenia. Multilevel degenerative disc changes in the lower thoracic and lumbosacral spine, with stable leftward curvature. Facet hypertrophy L3-S1. Soft tissues are grossly unremarkable. IMPRESSION: 1. Atrophic uterus. Linear hyperdensity in the expected location of the endometrial stripe is unchanged since the prior exam. This may represent blood products in the setting of postmenopausal vaginal bleeding. A 1.4 cm calcific density in the uterus likely represents a calcified fibroid. Please see transvaginal ultrasound performed same date. 2. Mild circumferential bladder wall thickening, which is stable. Correlate for cystitis. 3. Unchanged large sliding hiatal hernia containing most of the stomach. No evidence of obstruction. Signed by: Dr. Christiano Louise M.D. on 07/02/2018 4:14 PM
[2018-07-02 18:39] VITALS: BP 180/71
[2018-07-02 19:15] VITALS: BP 156/75
[2018-07-02 19:19] LABS: HEMATOCRIT 36.8 % (34.2-44.1); HEMOGLOBIN 12.5 g/dL (12.0-16.0)
[2018-07-02] MEDS: CEFTRIAXONE SOD 1 GM VIAL IV SCH (19:41)
[2018-07-02 20:53] VITALS: BP 156/75
[2018-07-02 23:20] VITALS: BP 112/56
[2018-07-03] VITALS (7 sets, daily range): BP systolic 127–157; BP diastolic 60–72
[2018-07-03 05:49] LABS: HEMOGLOBIN 11.5 g/dL (12.0-16.0)
[2018-07-03] MEDS: CEFTRIAXONE SOD 1 GM VIAL IV SCH ×2 (06:20→18:13)
[2018-07-03] MEDS ORDERED: BISACODYL 5 MG TAB EC PO ONE (07:15)
[2018-07-03] MEDS: PANTOPRAZOLE SOD 40 MG TABEC PO SCH (10:30)
[2018-07-03] MEDS: LOSARTAN POTASSIUM 100 MG TAB PO SCH (10:30)
[2018-07-03] MEDS: AMLODIPINE BESYLATE 5 MG TAB PO SCH (10:30)
[2018-07-03 11:11] LABS: HEMATOCRIT 34.4 % (34.2-44.1); HEMOGLOBIN 11.6 g/dL (12.0-16.0)
[2018-07-03 19:03] LABS: HEMATOCRIT 39.4 % (34.2-44.1); HEMOGLOBIN 13.2 g/dL (12.0-16.0)
[2018-07-03] MEDS ORDERED: ATORVASTATIN 20 MG TAB PO SCH (21:00)
[2018-07-03] MEDS ORDERED: ZOLPIDEM TARTRATE 10 MG TAB PO PRN (21:30)
[2018-07-04 00:36] VITALS: BP 123/58
[2018-07-04 01:49] LABS: HEMATOCRIT 34.4 % (34.2-44.1); HEMOGLOBIN 11.8 g/dL (12.0-16.0)
[2018-07-04 05:19] VITALS: BP 134/62
[2018-07-04 05:19] LABS: BASOPHILS % 0.4 % (0.0-1.0); EOSINOPHILS % 0.7 % (0.0-6.0); HEMATOCRIT 33.7 % (34.2-44.1); HEMOGLOBIN 11.2 g/dL (12.0-16.0); LYMPHOCYTES # (AUTO) 1.2 (1.0-3.2); LYMPHOCYTES % 27.1 % (18.0-39.1); MEAN CORPUSCULAR HEMOGLOBIN 32.5 pg (28-32); MEAN CORPUSCULAR HGB CONC 33.2 g/dL (31-35); MEAN CORPUSCULAR VOLUME 97.7 fL (81-99); MONOCYTES # (AUTO) 0.5 (0.2-0.8); MONOCYTES % 10.7 % (4.4-11.3); NEUTROPHILS # (AUTO) 2.7 (2.1-6.9); NEUTROPHILS % 60.7 % (38.7-80.0); PLATELET COUNT 225 x10e3/uL (140-360); RED BLOOD COUNT 3.45 x10e6/uL (3.6-5.1); RED CELL DISTRIBUTION WIDTH 13.2 % (11.7-14.4)
[2018-07-04 05:43] LABS: ANION GAP 11.5 mmol/L (8-16); BLOOD UREA NITROGEN 11 mg/dL (7-26); BUN/CREATININE RATIO 15 (6-25); CALCIUM 9.2 mg/dL (8.4-10.2); CARBON DIOXIDE 25 mmol/L (22-29); CHLORIDE 100 mmol/L (98-107); CREATININE, SERUM 0.71 mg/dL (0.57-1.11); EST GLOMERULAR FILTRATION RATE > 60 ML/MIN (60-); GLUCOSE 97 mg/dL (74-118); POTASSIUM 3.5 mmol/L (3.5-5.1); SODIUM 133 mmol/L (136-145)
[2018-07-04] MEDS: CEFTRIAXONE SOD 1 GM VIAL IV SCH (05:52)
[2018-07-04 08:14] VITALS: BP 138/66
[2018-07-04] MEDS: AMLODIPINE BESYLATE 5 MG TAB PO SCH (09:10)
[2018-07-04] MEDS: LOSARTAN POTASSIUM 100 MG TAB PO SCH (09:10)
[2018-07-04] MEDS: PANTOPRAZOLE SOD 40 MG TABEC PO SCH (09:10)
--- NOTE | 2018-07-06 13:16 | Diagnostic Imaging Report ---
EXAM: Transabdominal and Transvaginal Pelvic Ultrasound INDICATION: Vaginal bleeding, occasional right pelvic pain COMPARISON: CT abdomen pelvis 04/05/2018 TECHNIQUE: Grayscale transverse and sagittal transabdominal and transvaginal images were obtained of the pelvis. Transvaginal imaging was medically necessary to better evaluate the endometrium. CLINICAL HISTORY: 83 year old postmenopausal patient is FINDINGS: Limited transvaginal views due to pain secondary to prior rectal cancer radiation therapy Uterus: Orientation: Anteverted Size: 6.4 x 2.5 x 4.5 cm, Normal Mass: 1.5 x 0.8 x 1.4 cm hyperechoic shadowing lesion in the uterus consistent with previously visualized hyperdensity on CT dated 04/05/2018 Cervix: Normal Endometrium: Thickness: 0.7 cm, thickened. Appearance: Homogeneous echotexture without focal thickening. Right ovary: Not visualized. Left ovary: Not visualized. Adnexa: No focal lesions. Cul-de-sac: No free fluid IMPRESSION: 1. Thickened endometrial stripe for postmenopausal patient with vaginal bleeding. Differential diagnosis includes endometrial hyperplasia or endometrial neoplasm. A polyp is less likely given the diffuse nature of the finding. Recommend SHEET METAL FABRICATOR evaluation. 2. Atrophic uterus. 1.5 cm hyperechoic shadowing lesion in the uterus likely represents the previously visualized calcified fibroid. 3. Ovaries could not be visualized. Signed by: Dr. Christiano Louise M.D. on 07/02/2018 4:01 PM
[2018-07-31] MEDS ORDERED: LEVAQUIN500 MG PO (17:48)
[2018-07-31] MEDS ORDERED: TYLENOL WITH C1 EACH PO (17:48)
--- NOTE | 2018-08-03 04:19 | Discharge Summary ---
HOSPITAL COURSE: This patient came to the hospital for uterine bleeding. The patient also had hematuria. The patient is doing much better. Urine culture was followed. Patient was started back on her hypertension medicines and hyperlipidemia medicine. The patient for the uterine bleeding was asked to follow up with her primary care physician as an outpatient for hematuria. We will discharge the patient on Keflex 500 mg twice a day. For further information, look into the chart. For medicines on discharge, look into the medical reconciliation sheet. PHANI RIZZO MD Job#: [id number]
--- OUTSIDE RECORDS SUMMARY | 2018-08-20 02:17 | XMS REPORT | Continuity of Care Document ---
Author Author [facility] Organization [facility] Address [address] [place] [address] Phone Unavailable Care Team Providers Care Public Service Officer Name Role Phone GÓMEZ MUÑOZ MD PCP Insurance Providers Guarantor Ita Albarran V Address [address] [place] [address] Email [email or web address] Payer [facility] Policy Number [id number] Subscriber's Name Ita Alabrran Relationship 18 Self / Same As Patient Effective Date 17 Payer Medicare A & B Policy Number [id number] Subscriber's Name White,Ita Relationship 18 Self / Same As Patient Group Number [id number] Group Name UNEMPLOYED Effective Date 99 Advance Directives Directive Response Recorded Date/Time Does the patient have an advance directive? No 04/05/18 11:51pm If yes, is advance directive on file with [facility]? No 05/06/17 10:00pm If not on file with [facility] will patient provide a copy? No 01/12/18 8:10pm Do you have a Directive to Physician? No 04/05/18 4:59pm Do you have a Medical Power of Drywall Contractor? No 04/05/18 4:59pm Do you have an out of hospital Do Not Resuscitate Order? No 04/05/18 4:59pm Do you have any special needs we should be aware of? No 04/05/18 4:59pm Do you have a support person here with you today? Yes 04/05/18 4:59pm Did patient receive Notice of Privacy Practices? Yes 04/05/18 4:59pm Did patient receive patient rights and responsibilities? Yes 04/05/18 4:59pm Problems Medical Problem Onset Date Status Abdominal pain Unknown Enterocolitis Unknown Medications Current Home Medications Medication Dose Units Route Directions Days Qty Instructions Start Date Alendronate Sodium (Fosamax) 70 Mg Tablet 70 Mg Oral Use As Directed Amlodipine Besylate 5 Mg Tablet 5 Mg Oral Daily 30 Tab Aspirin (Aspir 81) 81 Mg Tablet. 81 Mg Oral Daily Atorvastatin Calcium (Lipitor) 20 Mg Tablet 20 Mg Oral Daily 30 Tab Losartan Potassium 100 Mg Tablet 100 Mg Oral Daily Pantoprazole Sodium (Protonix) 40 Mg Tablet. 80 Mg Oral Daily Past Home Medications Medication Directions Ordered Status Atorvastatin Calcium (Lipitor) 40 Mg Tablet, 40 Mg Oral Daily Discontinued Fentanyl (Duragesic) 1 Each Patch.td72, 1 Patch Transderm Use As Directed as needed for Pain Discontinued Furosemide 40 Mg Tablet, 40 Mg Oral Daily Discontinued Ibandronate Sodium 150 Mg Tablet, 150 Mg Oral Mthly Discontinued Ibandronate Sodium (Boniva) 150 Mg Tab, 150 Mg Oral Montyly Discontinued Social History Social History Problem Response Recorded Date/Time Onset Date Status Hx Psychiatric Problems No 04/05/2018 11:51pm Not Applicable Not Applicable Hx Eating Disorder No 04/05/2018 11:51pm Not Applicable Not Applicable Hx Substance Use Disorder No 04/05/2018 11:51pm Not Applicable Not Applicable Hx Depression No 04/05/2018 11:51pm Not Applicable Not Applicable Hx Alcohol Use No 04/05/2018 11:51pm Not Applicable Not Applicable Hx Substance Use Treatment No 04/05/2018 11:51pm Not Applicable Not Applicable Hx Physical Abuse No 04/05/2018 11:51pm Not Applicable Not Applicable Smoking Status Start Date Stop Date Never Smoker Hospital Discharge Instructions No hospital discharge instruction information available. Plan of Care Discharge Date 04/11/18 11:55am Disposition HOME, SELF-CARE Instructions/Education Provided Abdominal Pain - Adult Prescriptions See Medication Section Additional Instructions/Education FOLLOW UP WITH PCP IN 1 WEEK CONTINUE HOME MEDICATIONS FOLLOW UP WITH DR. ANDERSON DIRECTED Functional Status Query Response Date Recorded Assistive Devices Small Base Quad Cane April 05, 2018 11:56pm Ambulation Ability Independent April 05, 2018 11:56pm Toileting Ability Minimum Assistance April 10, 2018 4:32pm Allergies, Adverse Reactions, Alerts Allergen Type Severity Reaction Status Last Updated Morphine Allergy Mild Active 06/06/17 Codeine Allergy Mild SICK Active 04/05/18 Immunizations No immunization information available. Vital Signs Acute Vital Signs Vital Response Date/Time Temperature (Fahrenheit) 98.0 degrees F (97.6 - 99.5) 04/11/2018 8:00am Pulse Pulse Rate (adult) 81 bpm (60 - 90) 04/11/2018 8:00am Respiratory Rate 18 bpm (12 - 24) 04/11/2018 8:00am Blood Pressure 125/60 mm Hg 04/11/2018 8:00am Height 5 ft 0 in 04/05/2018 11:51pm Weight 121 lb 04/05/2018 11:51pm Body Mass Index 23.6 kg/m^2 04/05/2018 11:51pm Results Laboratory Results Test Name Result Units Flags Reference Collection Date/Time Result Date/ Time Comments Prothrombin Time 12.5 seconds 11.9-14.5 01/12/2018 10:31pm [...] seconds 23.8-35.5 01/12/2018 10 :31pm 01/12/2018 11:18pm White Blood Count 4.59 x10e3/uL L 4.8-10.8 04/10/2018 6:50am 04/10/2018 7:03am Red Blood Count 3.18 x10e6/uL L 3.6-5.1 04/10/2018 6:50am 04/10/2018 7: 03am Hemoglobin 10.2 g/dL L 12.0-16.0 04/10/2018 6:50am 04/10/2018 7:03am Hematocrit 30.1 % L 34.2-44.1 04/10/2018 6:50am 04/10/2018 7:03am Mean Corpuscular Volume 94.7 fL 81-99 04/10/2018 6:50am 04/10/2018 7: 03am Mean Corpuscular Hemoglobin 32.1 pg H 28-32 04/10/2018 6:50am 2017 7:03am Mean Corpuscular Hemoglobin Concent 33.9 g/dL 31-35 04/10/2018 6:50am 04/10/2018 7:03am Red Cell Distribution Width 12.7 % 11.7-14.4 04/10/2018 6:50am 2017 7:03am Platelet Count 213 x10e3/uL 140-360 04/10/2018 6:50am 04/10/2018 7: 03am Neutrophils (%) (Auto) 69.3 % 38.7-80.0 04/10/2018 6:50am 04/10/2018 7: 03am Lymphocytes (%) (Auto) 19.4 % 18.0-39.1 04/10/2018 6:50am 04/10/2018 7: 03am Monocytes (%) (Auto) 9.6 % 4.4-11.3 04/10/2018 6:50am 04/10/2018 7: 03am Eosinophils (%) (Auto) 1.3 % 0.0-6.0 04/10/2018 6:50am 04/10/2018 7: 03am Basophils (%) (Auto) 0.2 % 0.0-1.0 04/10/2018 6:50am 04/10/2018 7:03am IM GRANULOCYTES % 0.2 % 0.0-1.0 04/10/2018 6:50am 04/10/2018 7:03am Neutrophils # (Auto) 3.2 2.1-6.9 04/10/2018 6:50am 04/10/2018 7:03am Lymphocytes # (Auto) 0.9 L 1.0-3.2 04/10/2018 6:50am 04/10/2018 7: 03am Monocytes # (Auto) 0.4 0.2-0.8 04/10/2018 6:50am 04/10/2018 7:03am Eosinophils # (Auto) 0.1 0.0-0.4 04/10/2018 6:50am 04/10/2018 7:03am Basophils # (Auto) 0.0 0.0-0.1 04/10/2018 6:50am 04/10/2018 7:03am Absolute Immature Granulocyte (auto 0.01 x10e3/uL 0-0.1 04/10/2018 6: 50am 04/10/2018 7:03am Differential Total Cells Counted 100 04/06/2018 5:54am 04/06/2018 8 :12am Neutrophils % (Manual) 86 % H 40-74 04/06/2018 5:54am 04/06/2018 8:12am Lymphocytes % (Manual) 9 % L 19-48 04/06/2018 5:54am 04/06/2018 8:12am Monocytes % (Manual) 5 % 3.4-9.0 04/06/2018 5:54am 04/06/2018 8:12am Platelet Estimate ADEQUATE 04/06/2018 5:54am 04/06/2018 8:12am Platelet Morphology Comment NORMAL 04/06/2018 5:54am 04/06/2018 8: 12am Anisocytosis SLIGHT 04/06/2018 5:54am 04/06/2018 8:12am Macrocytosis MODERATE 04/06/2018 5:54am 04/06/2018 8:12am Red Cell Morphology Comment NORMAL 04/06/2018 5:54am 04/06/2018 8: 12am Urine Color YELLOW YELLOW 04/05/2018 5:13pm 04/05/2018 5:42pm Urine Clarity SL CLOUDY CLEAR 04/05/2018 5:13pm 04/05/2018 5:42pm Urine Specific [place] 1.020 1.010-1.025 04/05/2018 5:13pm 2017 5:42pm Urine pH 8 H 5 - 7 04/05/2018 5:13pm 04/05/2018 5:42pm Urine Leukocyte Esterase NEGATIVE NEGATIVE 04/05/2018 5:13pm 2017 5:42pm Urine Nitrite NEGATIVE NEGATIVE 04/05/2018 5:13pm 04/05/2018 5:42pm Urine Protein 2+ H NEGATIVE 04/05/2018 5:13pm 04/05/2018 5:42pm Urine Glucose (UA) NEGATIVE NEGATIVE 04/05/2018 5:13pm 04/05/2018 5: 42pm Urine Ketones NEGATIVE NEGATIVE 04/05/2018 5:13pm 04/05/2018 5:42pm Urine Urobilinogen 0.2 mg/dL 0.2 - 1 04/05/2018 5:13pm 04/05/2018 5: 42pm Urine Bilirubin NEGATIVE NEGATIVE 04/05/2018 5:13pm 04/05/2018 5: 42pm Urine Blood 1+ H NEGATIVE 04/05/2018 5:13pm 04/05/2018 5:42pm Urine WBC 0-5 /HPF 0-5 04/05/2018 5:13pm 04/05/2018 5:55pm Urine RBC 6-10 /HPF H 0-5 04/05/2018 5:13pm 04/05/2018 5:55pm Urine Bacteria MANY /HPF H NONE 04/05/2018 5:13pm 04/05/2018 5:55pm Urine Epithelial Cells NONE /LPF NONE 04/05/2018 5:13pm 04/05/2018 5: 55pm Urine Amorphous Sediment MANY H FEW 04/05/2018 5:13pm 04/05/2018 5: 55pm Sodium Level 140 mmol/L 136-145 04/10/2018 6:50am 04/10/2018 7:30am Potassium Level 3.5 mmol/L 3.5-5.1 04/10/2018 6:50am 04/10/2018 7:30am Chloride Level 105 mmol/L 98-107 04/10/2018 6:50am 04/10/2018 7:30am Carbon Dioxide Level 29 mmol/L 22-04/10/2018 6:50am 04/10/2018 7: 30am Anion Gap 9.5 mmol/L 8-16 04/10/2018 6:50am 04/10/2018 7:30am Blood Urea Nitrogen < 5 mg/dL L 7-04/10/2018 6:50am 04/10/2018 7: 30am Creatinine 0.60 mg/dL 0.57-1.11 04/10/2018 6:50am 04/10/2018 7:30am BUN/Creatinine Ratio 8 6-25 04/10/2018 6:5004/10/2018 7:30am Estimat Glomerular Filtration Rate > 60 ML/MIN 60- 04/10/2018 6:50am 7:30am Ranges were taken from the National Kidney Disease Education Program and the National Kid[employer] Foundation literature. Reference ranges: 60 or greater: Normal 16-59 (for 3 consecutive months): Chronic kidney disease 15 or less: Kidney failure Glucose Level 85 mg/dL 74-118 04/10/2018 6:5004/10/2018 7:30am Calcium Level 8.9 mg/dL 8.4-10.2 04/10/2018 6:5004/10/2018 7:30am Magnesium Level 2.1 MG/DL 1.3-2.1 04/09/2018 5:52am 04/09/2018 7:08am Total Bilirubin 0.4 mg/dL 0.2-1.2 04/10/2018 6:50am 04/10/2018 7:30am Aspartate Amino Transf (AST/SGOT) 22 IU/L 5-34 04/10/2018 6:50am 2017 7:30am Alanine Aminotransferase (ALT/SGPT) 18 IU/L 0-55 04/10/2018 6:50 7:30am Total Protein 5.5 g/dL L 6.5-8.1 04/10/2018 6:5004/10/2018 7:30am Albumin 2.9 g/dL L 3.5-5.0 04/10/2018 6:5004/10/2018 7:30am Globulin 2.6 g/dL 2.3-3.5 04/10/2018 6:5004/10/2018 7:30am Albumin/Globulin Ratio 1.1 0.8-2.0 04/10/2018 6:5004/10/2018 7: 30am Alkaline Phosphatase 46 IU/L 40-150 04/10/2018 6:50am 04/10/2018 7: 30am Amylase Level 88 U/L 25-125 04/06/2018 5:54am 04/06/2018 6:47am Lipase 21 U/L 8-78 04/06/2018 5:54am 04/06/2018 6:47am Procedures Procedure Status Date Provider(s) CT of abdomen and pelvis without contrast Active 01/12/[address] of abdomen and pelvis without contrast Active 04/05/18 VU DAVIS FIELD OPERATIONS MANAGER Encounters Encounter Location Arrival/Admit Date Discharge/Depart Date Attending Provider Discharged Inpatient [facility] 04/06/18 11:18am 11:55am GÓMEZ MUÑOZ MD Departed Emergency Room [facility] 01/12/18 8:14pm 2:27am ODILIA MARTE MD
[2018-08-20] MEDS ORDERED: AMBIEN10 MG PO (14:52)
== END 2018-07-04 11:35 | disposition home or self-care (01) ==
LOC: ER 11:42 → ERHOLD 16:51 → IMCU 18:30
PROVIDERS: ADMIT Family Medicine; ATTEND Family Medicine
DX: N30.00 Acute cystitis without hematuria (principal); N93.9 Abnormal uterine and vaginal bleeding, unspecified; I10 Essential (primary) hypertension; M85.80 Other specified disorders of bone density and structure, unspecified site; I25.10 Atherosclerotic heart disease of native coronary artery without angina pectoris; R31.9 Hematuria, unspecified; Z87.891 Personal history of nicotine dependence; Z85.048 Personal history of other malignant neoplasm of rectum, rectosigmoid junction, and anus
CPT/HCPCS: 36415 ×3; 74176; 76830; 76856; 80048; 80053; 81001; 85014 ×3; 85018 ×3; 85025 ×2; 86850; 86900; 87086; 99284; G0378 ×3; J0696 ×3; S0164 ×2

== ENCOUNTER → 2018-08-24 | Day surgery (SDC) | payer MEDICARE ==
[2018-08-20 15:35] LABS: BASOPHILS % 0.3 % (0.0-1.0); EOSINOPHILS % 0.5 % (0.0-6.0); HEMATOCRIT 34.2 % (34.2-44.1); HEMOGLOBIN 11.5 g/dL (12.0-16.0); LYMPHOCYTES # (AUTO) 1.1 (1.0-3.2); LYMPHOCYTES % 19.4 % (18.0-39.1); MEAN CORPUSCULAR HEMOGLOBIN 32.9 pg (28-32); MEAN CORPUSCULAR HGB CONC 33.6 g/dL (31-35); MEAN CORPUSCULAR VOLUME 97.7 fL (81-99); MONOCYTES # (AUTO) 0.6 (0.2-0.8); MONOCYTES % 10.4 % (4.4-11.3); NEUTROPHILS % 69.2 % (38.7-80.0); PLATELET COUNT 289 x10e3/uL (140-360)
[2018-08-20 15:53] LABS: ANION GAP 13.8 mmol/L (8-16); BLOOD UREA NITROGEN 14 mg/dL (7-26); BUN/CREATININE RATIO 18 (6-25); CARBON DIOXIDE 25 mmol/L (22-29); CHLORIDE 98 mmol/L (98-107); EST GLOMERULAR FILTRATION RATE > 60 ML/MIN (60-); GLUCOSE 97 mg/dL (74-118); POTASSIUM 3.8 mmol/L (3.5-5.1); SODIUM 133 mmol/L (136-145)
[2018-08-20 15:59] LABS: CALCIUM 10.1 mg/dL (8.4-10.2)
--- NOTE | 2018-08-20 16:23 | Diagnostic Imaging Report ---
Frontal and lateral views of the chest. HISTORY: Preop, surgery, insertion of venous Port-A-Cath COMPARISON: Chest radiograph April 05, 2018 DISCUSSION: Lungs: The lungs are hyperinflated. No evidence of a consolidative pneumonia or pulmonary alveolar edema. Bibasilar mild atelectasis. A 1.7 cm density projects at the medial aspect of the right upper lung. Additional 0.8 cm density projects at the periphery of the right lung base. Needed density is definitively visible on the comparison radiographs. Pleura: Mild blunting of the left costophrenic angle, pleural thickening versus trace pleural fluid. Heart and mediastinum: The cardiomediastinal silhouette appears unremarkable. Large hiatal hernia, likely containing the proximal to mid stomach. Bones: Diffusely decreased mineralization of the osseous structures limits bone detail. Accentuation of the thoracic kyphosis. Severe compression deformity of upper thoracic vertebral body. IMPRESSION: 1. Two indeterminate right-sided nodular densities, recommend a CT of the chest without contrast for further evaluation. 2. Findings compatible with obstructive lung disease. 3. Diffuse osseous demineralization and severe compression fracture deformity of an upper thoracic vertebral body. 4. Large hiatal hernia. Signed by: Dr. Jorge Irizarry D.O., M.M.M. on 08/20/2018 4:20 PM
[~2018-08-24] MED LIST changes: +AMBIEN10 MG PO; +BUPIVACAINE 0.25% 30ML SDV INJ ONE; +DEXAMETHASONE SOD PHOS INJ 4 MG/ML VIAL ONE; +FENTANYL CITRATE/PF 100MCG/2 ML INJ ONE; +HEPARIN SOD (PORCINE) 5,000 UNIT/ML VIAL ONE; +LEVAQUIN500 MG PO; +LIDOCAINE HCL 1% 2 ML AMP ONE; +LIDOCAINE HCL 1% 30ML-PF VIAL ONE; +LIDOCAINE HCL 2% LOCAL INJ 5 ML SDV VIAL INJ ONE; +NORCO 10-325 T1 EACH PO; +ONDANSETRON HCL INJ 2 MG/ML VIAL ONE; +PROPOFOL IV EMULSION 10 MG/ML 20 ML VIAL ONE; +SEVOFLURANE INHAL SOLN 250 ML PEN BTL ONE; +SODIUM CHLORIDE 0.9% 500ML 500 ML ONE; +TYLENOL WITH C1 EACH PO
--- NOTE | 2018-08-24 10:28 | Operative Report ---
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 OPERATION PERFORMED: Placement of left subclavian venous access port under C-arm guidance. DRAFTING LAYOUT WORKER: ITA Calle. ANESTHESIA: General. COMPLICATIONS: None. ESTIMATED BLOOD LOSS: Minimal. DESCRIPTION OF PROCEDURE: With the patient lying in bed in the supine position under good general anesthesia, the left chest and neck were prepped with Betadine solution and draped in the usual manner. The patient was placed in the Trendelenburg position, and a standard left subclavian mini-puncture was performed without any difficulty. A guidewire was advanced into central venous position. Using the C-arm, the tip of the wire was confirmed to be at the level of the superior vena cava and the left lung was fully expanded. A pocket was then created in the left anterior chest to accept the reservoir. The catheter was threaded to the subclavian position and cut to the appropriate length. The reservoir was anchored to the anterior chest wall with interrupted sutures of 2-0 silk. The reservoir and catheter were fully heparinized. The catheter was then threaded through the peel-away sheath. The peel-away sheath was removed. There was good blood return and the reservoir and catheter were fully heparinized. Using the C-arm, the tip of the catheter was confirmed to be at the level of the superior vena cava and the left lung was fully expanded. The wounds were then closed in layers. The subcutaneous tissue was approximated with 3-0 and 4-0 Vicryl. The skin was closed with subcuticular 5-0 Vicryl. Benzoin, Steri-Strips and dressings were applied. The sponge, lap and needle count was correct. The patient tolerated the procedure well and returned to the recovery room in stable condition. Job#: [id number] JHONNY
[2018-08-24 10:49] VITALS: BP 131/78
== END | disposition home or self-care (01) ==
LOC: OR 05:32
PROVIDERS: ATTEND Surgery
DX: C21.0 Malignant neoplasm of anus, unspecified (principal); C55 Malignant neoplasm of uterus, part unspecified; I10 Essential (primary) hypertension; I49.3 Ventricular premature depolarization; Z01.810 Encounter for preprocedural cardiovascular examination; Z01.812 Encounter for preprocedural laboratory examination; Z01.818 Encounter for other preprocedural examination; Z88.6 Allergy status to analgesic agent; Z91.041 Radiographic dye allergy status
CPT/HCPCS: 36415; 36561; 71046; 77001; 80048; 85025; 93005; C1751; J1100; J1644; J2001; J2405; J7040

== ENCOUNTER 2018-10-08 20:01 | Observation (INO) | payer MEDICARE ==
[~2018-10-08] VITALS: Ht 154.9 cm; Wt 50.8 kg
[~2018-10-08 20:01] MED LIST changes: -BUPIVACAINE 0.25% 30ML SDV INJ ONE; -DEXAMETHASONE SOD PHOS INJ 4 MG/ML VIAL ONE; -FENTANYL CITRATE/PF 100MCG/2 ML INJ ONE; -HEPARIN SOD (PORCINE) 5,000 UNIT/ML VIAL ONE; -LIDOCAINE HCL 1% 2 ML AMP ONE; -LIDOCAINE HCL 1% 30ML-PF VIAL ONE; -LIDOCAINE HCL 2% LOCAL INJ 5 ML SDV VIAL INJ ONE; -NORCO 10-325 T1 EACH PO; -ONDANSETRON HCL INJ 2 MG/ML VIAL ONE; -PROPOFOL IV EMULSION 10 MG/ML 20 ML VIAL ONE; -SEVOFLURANE INHAL SOLN 250 ML PEN BTL ONE; -SODIUM CHLORIDE 0.9% 500ML 500 ML ONE
[2018-10-08] MEDS ORDERED: SODIUM CHLORIDE 0.9% 500ML 500 ML IV STA (20:25)
[2018-10-08] MEDS ORDERED: LOPERAMIDE HCL 2 MG CAP PO PRN (20:30)
[2018-10-08 20:33] LABS: EOSINOPHILS # (AUTO) 0.1 (0.0-0.4); EOSINOPHILS % 4.8 % (0.0-6.0); HEMOGLOBIN 12.5 g/dL (12.0-16.0); LYMPHOCYTES # (AUTO) 0.8 (1.0-3.2); MEAN CORPUSCULAR HEMOGLOBIN 33.1 pg (28-32); MEAN CORPUSCULAR HGB CONC 35.7 g/dL (31-35); MEAN CORPUSCULAR VOLUME 92.6 fL (81-99); MONOCYTES # (AUTO) 0.1 (0.2-0.8); MONOCYTES % 3.5 % (4.4-11.3); NEUTROPHILS # (AUTO) 1.2 (2.1-6.9); NEUTROPHILS % 53.4 % (38.7-80.0); PLATELET COUNT 209 x10e3/uL (140-360); RED BLOOD COUNT 3.78 x10e6/uL (3.6-5.1); RED CELL DISTRIBUTION WIDTH 14.9 % (11.7-14.4)
[2018-10-08] MEDS ORDERED: ONDANSETRON HCL INJ 2 MG/ML VIAL IV STA (20:44)
[2018-10-08 20:47] LABS: ALANINE AMINOTRANSFERASE 38 IU/L (0-55); ALBUMIN 3.5 g/dL (3.5-5.0); ALKALINE PHOSPHATASE 91 IU/L (40-150); ANION GAP 18.4 mmol/L (8-16); BLOOD UREA NITROGEN 12 mg/dL (7-26); BUN/CREATININE RATIO 14 (6-25); CALCIUM 9.7 mg/dL (8.4-10.2); CARBON DIOXIDE 33 mmol/L (22-29); CHLORIDE 86 mmol/L (98-107); CREATININE, SERUM 0.84 mg/dL (0.57-1.11); EST GLOMERULAR FILTRATION RATE > 60 ML/MIN (60-); GLUCOSE 134 mg/dL (74-118); SODIUM 135 mmol/L (136-145)
[2018-10-08 20:50] LABS: POTASSIUM 2.4 mmol/L (3.5-5.1)
[2018-10-08] MEDS ORDERED: POTASSIUM CHLORIDE 20MEQ/100ML 200 ML IV ONE (21:00)
[2018-10-08] MEDS ORDERED: SODIUM CHLORIDE 0.9% 250ML 250 ML ONE (21:40)
[2018-10-08] MEDS ORDERED: SODIUM CHLORIDE 0.9% 1000ML 250 ML IV SCH (22:00)
[2018-10-08] MEDS ORDERED: SODIUM CHLORIDE 0.9% 1000ML 250 ML IV ONE ×2 (22:00)
[2018-10-08 22:19] VITALS: BP 130/62
[2018-10-08] MEDS ORDERED: NORCO 10-325 T1 EACH PO (23:14)
[2018-10-08] MEDS: HYDROCODONE/APAP 10MG-325MG TAB PO PRN (23:30)
[2018-10-09] VITALS (9 sets, daily range): BP systolic 101–154; BP diastolic 58–72
[2018-10-09] MEDS: ZOLPIDEM TARTRATE 10 MG TAB PO PRN ×2 (00:30→22:11)
[2018-10-09] MEDS: SODIUM CHLORIDE 0.9% 1000ML 1,000 ML IV SCH ×3 (02:55→15:00)
[2018-10-09 06:03] LABS: BASOPHILS % 0.5 % (0.0-1.0); EOSINOPHILS # (AUTO) 0.2 (0.0-0.4); EOSINOPHILS % 11.5 % (0.0-6.0); HEMATOCRIT 26.6 % (34.2-44.1); HEMOGLOBIN 9.4 g/dL (12.0-16.0); LYMPHOCYTES # (AUTO) 0.9 (1.0-3.2); LYMPHOCYTES % 46.5 % (18.0-39.1); MEAN CORPUSCULAR HEMOGLOBIN 33.2 pg (28-32); MEAN CORPUSCULAR HGB CONC 35.3 g/dL (31-35); MONOCYTES # (AUTO) 0.1 (0.2-0.8); MONOCYTES % 5.5 % (4.4-11.3); NEUTROPHILS # (AUTO) 0.7 (2.1-6.9); NEUTROPHILS % 35.5 % (38.7-80.0); PLATELET COUNT 187 x10e3/uL (140-360); RED BLOOD COUNT 2.83 x10e6/uL (3.6-5.1); RED CELL DISTRIBUTION WIDTH 14.9 % (11.7-14.4)
--- NOTE | 2018-10-09 06:12 | History and Physical ---
REASON FOR ADMISSION 1. Dehydration. 2. Gastroenteritis. 3. Hypokalemia. HISTORY OF PRESENT ILLNESS: The patient is an 83-year-old lady who presented with a 2-day history of watery diarrhea in which she started becoming more weak. Therefore, presented to the emergency room. She was also found to have evidence of dehydration, as well as potassium of 2.4. She was admitted for further evaluation and treatment. The patient denies any fever associated with it. PAST MEDICAL HISTORY: Significant for: 1. Anal cancer. 2. Hypertension. MEDICATIONS: See JAN. ALLERGIES: MORPHINE AND IODINE. SOCIAL HISTORY: Lives at home. Nonsmoker and nondrinker. FAMILY HISTORY: Hypertension. PHYSICAL EXAMINATION VITALS: 98.4, pulse 81, blood pressure 101/58, sats 97% on room air. GENERAL: No apparent distress. LUNGS: Clear to auscultation bilaterally. NECK: Supple. CARDIOVASCULAR: Regular rate and rhythm. ABDOMEN: Good bowel sounds. Soft, nontender and nondistended. No peritoneal signs. EXTREMITIES: No clubbing or cyanosis. NEUROLOGICAL: Nonfocal. ASSESSMENT AND PLAN 1. Dehydration with gastroenteritis: Continue with intravenous fluids. 2. Hypokalemia: Will replace. 3. Leukopenia: Will continue to monitor. 4. Hypertension: Will start her blood pressure medicines. 5. Diarrhea. Please see hospital chart for full details. Job#: [id number] [place]
[2018-10-09 06:27] LABS: ALANINE AMINOTRANSFERASE 24 IU/L (0-55); ALBUMIN 2.4 g/dL (3.5-5.0); ALKALINE PHOSPHATASE 63 IU/L (40-150); ANION GAP 10.7 mmol/L (8-16); BLOOD UREA NITROGEN 11 mg/dL (7-26); BUN/CREATININE RATIO 17 (6-25); CALCIUM 8.1 mg/dL (8.4-10.2); CARBON DIOXIDE 33 mmol/L (22-29); CHLORIDE 95 mmol/L (98-107); CREATININE, SERUM 0.66 mg/dL (0.57-1.11); EST GLOMERULAR FILTRATION RATE > 60 ML/MIN (60-); GLUCOSE 81 mg/dL (74-118); SODIUM 136 mmol/L (136-145)
[2018-10-09 06:32] LABS: POTASSIUM 2.7 mmol/L (3.5-5.1)
[2018-10-09] MEDS ORDERED: POTASSIUM CHLORIDE 20 MEQ TAB CR PO STA (06:57)
[2018-10-09] MEDS: LEVOFLOXACIN 500 MG TAB PO SCH ×2 (07:15→09:00)
[2018-10-09] MEDS ORDERED: POTASSIUM CHLORIDE 20 MEQ TAB CR PO ONE ×3 (07:20→12:00)
[2018-10-09 09:45] LABS: EOSINOPHILS % (MANUAL) 10 % (0-7); LYMPHOCYTES % (MANUAL) 43 % (19-48); MONOCYTES % (MANUAL) 4 % (3.4-9.0); NEUTROPHILS % (MANUAL) 43 % (40-74); PLATELET ESTIMATE ADEQUATE; PLATELET MORPHOLOGY COMMENT NORMAL; RBC MORPHOLOGY COMMENT NORMAL
[2018-10-09] MEDS: HYDROCODONE/APAP 10MG-325MG TAB PO PRN ×2 (13:15→20:30)
[2018-10-09 14:10] LABS: C DIFFICILE TOXIN A&B AMP PROB NEGATIVE (NEGATIVE); OCCULT BLOOD STOOL NEGATIVE (NEGATIVE)
[2018-10-10] VITALS (8 sets, daily range): BP systolic 114–161; BP diastolic 58–74
[2018-10-10] MEDS: SODIUM CHLORIDE 0.9% 1000ML 1,000 ML IV SCH ×2 (02:07→21:10)
[2018-10-10 06:31] LABS: BASOPHILS % 0.6 % (0.0-1.0); EOSINOPHILS # (AUTO) 0.4 (0.0-0.4); EOSINOPHILS % 21.4 % (0.0-6.0); HEMATOCRIT 26.3 % (34.2-44.1); HEMOGLOBIN 9.1 g/dL (12.0-16.0); LYMPHOCYTES # (AUTO) 0.7 (1.0-3.2); LYMPHOCYTES % 39.9 % (18.0-39.1); MEAN CORPUSCULAR HEMOGLOBIN 33.2 pg (28-32); MEAN CORPUSCULAR HGB CONC 34.6 g/dL (31-35); MONOCYTES # (AUTO) 0.1 (0.2-0.8); MONOCYTES % 5.2 % (4.4-11.3); NEUTROPHILS # (AUTO) 0.6 (2.1-6.9); NEUTROPHILS % 32.3 % (38.7-80.0); PLATELET COUNT 166 x10e3/uL (140-360); RED BLOOD COUNT 2.74 x10e6/uL (3.6-5.1); RED CELL DISTRIBUTION WIDTH 14.8 % (11.7-14.4)
[2018-10-10 06:50] LABS: ANION GAP 8.4 mmol/L (8-16); BLOOD UREA NITROGEN 7 mg/dL (7-26); BUN/CREATININE RATIO 12 (6-25); CALCIUM 8.4 mg/dL (8.4-10.2); CARBON DIOXIDE 30 mmol/L (22-29); CHLORIDE 102 mmol/L (98-107); CREATININE, SERUM 0.59 mg/dL (0.57-1.11); EST GLOMERULAR FILTRATION RATE > 60 ML/MIN (60-); GLUCOSE 82 mg/dL (74-118); POTASSIUM 3.4 mmol/L (3.5-5.1); SODIUM 137 mmol/L (136-145)
[2018-10-10 07:39] LABS: EOSINOPHILS % (MANUAL) 16 % (0-7); LYMPHOCYTES % (MANUAL) 36 % (19-48); MONOCYTES % (MANUAL) 3 % (3.4-9.0); NEUTROPHILS % (MANUAL) 45 % (40-74)
[2018-10-10] MEDS ORDERED: POTASSIUM CHLORIDE 20 MEQ TAB CR PO ONE (08:00)
[2018-10-10] MEDS ORDERED: ATORVASTATIN 20 MG TAB PO SCH ×2 (09:00→21:00)
[2018-10-10] MEDS: LEVOFLOXACIN 500 MG TAB PO SCH (09:00)
[2018-10-10] MEDS: LOSARTAN POTASSIUM 100 MG TAB PO SCH (11:30)
[2018-10-10] MEDS: AMLODIPINE BESYLATE 5 MG TAB PO SCH (11:30)
[2018-10-10] MEDS: PANTOPRAZOLE SOD 40 MG TABEC PO SCH (11:30)
[2018-10-10] MEDS: HYDROCODONE/APAP 10MG-325MG TAB PO PRN ×2 (13:30→20:15)
[2018-10-10] MEDS: ZOLPIDEM TARTRATE 10 MG TAB PO PRN (22:00)
[2018-10-10] MEDS ORDERED: CALCIUM CARBONATE 500 MG CHEWABLE TABS PO PRN (22:45)
[2018-10-11 01:02] VITALS: BP 133/63
[2018-10-11] MEDS: SODIUM CHLORIDE 0.9% 1000ML 1,000 ML IV SCH (01:53)
[2018-10-11 04:00] VITALS: BP 126/61
[2018-10-11 07:13] LABS: BASOPHILS % 0.5 % (0.0-1.0); EOSINOPHILS # (AUTO) 0.4 (0.0-0.4); EOSINOPHILS % 16.3 % (0.0-6.0); HEMATOCRIT 26.3 % (34.2-44.1); LYMPHOCYTES # (AUTO) 0.9 (1.0-3.2); LYMPHOCYTES % 40.3 % (18.0-39.1); MEAN CORPUSCULAR HEMOGLOBIN 33.2 pg (28-32); MEAN CORPUSCULAR HGB CONC 34.2 g/dL (31-35); MONOCYTES # (AUTO) 0.1 (0.2-0.8); MONOCYTES % 5.9 % (4.4-11.3); NEUTROPHILS # (AUTO) 0.8 (2.1-6.9); NEUTROPHILS % 36.5 % (38.7-80.0); PLATELET COUNT 134 x10e3/uL (140-360); RED BLOOD COUNT 2.71 x10e6/uL (3.6-5.1); RED CELL DISTRIBUTION WIDTH 14.9 % (11.7-14.4)
[2018-10-11 07:37] LABS: ALANINE AMINOTRANSFERASE 17 IU/L (0-55); ALBUMIN 2.4 g/dL (3.5-5.0); ALKALINE PHOSPHATASE 57 IU/L (40-150); ANION GAP 9.1 mmol/L (8-16); BLOOD UREA NITROGEN 8 mg/dL (7-26); BUN/CREATININE RATIO 14 (6-25); CALCIUM 8.7 mg/dL (8.4-10.2); CARBON DIOXIDE 25 mmol/L (22-29); CHLORIDE 104 mmol/L (98-107); CREATININE, SERUM 0.59 mg/dL (0.57-1.11); EST GLOMERULAR FILTRATION RATE > 60 ML/MIN (60-); GLUCOSE 81 mg/dL (74-118); POTASSIUM 3.1 mmol/L (3.5-5.1); SODIUM 135 mmol/L (136-145)
[2018-10-11 07:45] VITALS: BP 154/76
[2018-10-11 08:31] LABS: EOSINOPHILS % (MANUAL) 13 % (0-7); LYMPHOCYTES % (MANUAL) 37 % (19-48); MONOCYTES % (MANUAL) 1 % (3.4-9.0); NEUTROPHILS % (MANUAL) 49 % (40-74); PLATELET MORPHOLOGY COMMENT NORMAL; RBC MORPHOLOGY COMMENT NORMAL
[2018-10-11 08:32] LABS: PLATELET ESTIMATE ADEQUATE
[2018-10-11] MEDS: LOSARTAN POTASSIUM 100 MG TAB PO SCH (08:43)
[2018-10-11] MEDS: AMLODIPINE BESYLATE 5 MG TAB PO SCH (08:43)
[2018-10-11] MEDS: LEVOFLOXACIN 500 MG TAB PO SCH (08:43)
[2018-10-11] MEDS: PANTOPRAZOLE SOD 40 MG TABEC PO SCH (08:43)
[2018-10-11 08:46] VITALS: BP 154/76
[2018-10-11] MEDS ORDERED: POTASSIUM CHLORIDE 20 MEQ TAB CR PO ONE (10:30)
== END 2018-10-11 11:23 | disposition home or self-care (01) ==
LOC: ER 20:01 → ERHOLD 21:00 → MED/SURG 22:23
PROVIDERS: ADMIT Internal Medicine; ATTEND Internal Medicine
DX: K52.9 Noninfective gastroenteritis and colitis, unspecified (principal); E87.6 Hypokalemia; E86.0 Dehydration; I10 Essential (primary) hypertension; Z85.048 Personal history of other malignant neoplasm of rectum, rectosigmoid junction, and anus; Z88.5 Allergy status to narcotic agent; D72.819 Decreased white blood cell count, unspecified; D64.9 Anemia, unspecified
CPT/HCPCS: 36415 ×4; 80048; 80053 ×3; 82270; 82948; 83735; 85025 ×4; 87045; 87177; 87328; 87493; 99284; G0378 ×4; J2405; J3480; J7030 ×2; J7040; J7050; S0164 ×2

== ENCOUNTER 2018-10-18 23:45 | Inpatient (IN) | payer MEDICARE ==
[~2018-10-18] VITALS: Ht 154.9 cm; Wt 50.3 kg
[~2018-10-18 23:45] MED LIST changes: +NORCO 10-325 T1 EACH PO
[2018-10-19 01:51] LABS: BASOPHILS % 0.4 % (0.0-1.0); EOSINOPHILS % 1.6 % (0.0-6.0); HEMOGLOBIN 12.3 g/dL (12.0-16.0); LYMPHOCYTES # (AUTO) 1.8 (1.0-3.2); LYMPHOCYTES % 70.4 % (18.0-39.1); MEAN CORPUSCULAR HEMOGLOBIN 33.1 pg (28-32); MEAN CORPUSCULAR HGB CONC 35.1 g/dL (31-35); MEAN CORPUSCULAR VOLUME 94.1 fL (81-99); MONOCYTES # (AUTO) 0.5 (0.2-0.8); MONOCYTES % 18.4 % (4.4-11.3); NEUTROPHILS # (AUTO) 0.2 (2.1-6.9); NEUTROPHILS % 9.2 % (38.7-80.0); PLATELET COUNT 266 x10e3/uL (140-360); RED BLOOD COUNT 3.72 x10e6/uL (3.6-5.1); RED CELL DISTRIBUTION WIDTH 15.9 % (11.7-14.4)
--- NOTE | 2018-10-19 01:55 | Diagnostic Imaging Report ---
EXAM: CHEST SINGLE (PORTABLE), AP 1 view INDICATION: Shortness of breath, productive cough COMPARISON: None FINDINGS: LINES/TUBES: Left subclavian chest port with tip in the expected location of the distal left brachiocephalic vein/superior vena cava junction. LUNGS: Nodular densities in the right upper lung. Linear atelectasis/scarring left lung base. PLEURA: No effusions or pneumothorax. HEART AND MEDIASTINUM: Within normal limits given lordotic view. BONES AND SOFT TISSUES: Large hiatal hernia. IMPRESSION: No evidence of pneumonia. Indeterminate nodular densities in the right upper lung could represent metastatic nodules from patient's known rectal cancer. Signed by: Dr. Gely Nice M.D. on 10/19/2018 1:52 AM
[2018-10-19 02:04] LABS: ALANINE AMINOTRANSFERASE 18 IU/L (0-55); ALBUMIN 2.4 g/dL (3.5-5.0); ALKALINE PHOSPHATASE 79 IU/L (40-150); AMYLASE 32 U/L (25-125); ANION GAP 11.1 mmol/L (8-16); BLOOD UREA NITROGEN < 5 mg/dL (7-26); CARBON DIOXIDE 27 mmol/L (22-29); CHLORIDE 100 mmol/L (98-107); CREATINE KINASE 26 IU/L (29-168); CREATININE, SERUM 0.61 mg/dL (0.57-1.11); EST GLOMERULAR FILTRATION RATE > 60 ML/MIN (60-); GLUCOSE 113 mg/dL (74-118); LIPASE 43 U/L (8-78); SODIUM 136 mmol/L (136-145)
[2018-10-19 02:12] LABS: BILIRUBIN,URINE NEGATIVE (NEGATIVE); CLARITY,URINE CLEAR (CLEAR); COLOR,URINE YELLOW (YELLOW); KETONES,URINE NEGATIVE (NEGATIVE); LEUKOCYTE ESTERASE ,URINE TRACE (NEGATIVE); NITRITE,URINE NEGATIVE (NEGATIVE); PROTEIN,URINE DIPSTICK NEGATIVE (NEGATIVE); URINE UROBILINOGEN 0.2 mg/dL (0.2 - 1)
[2018-10-19 02:14] LABS: EPITHELIAL CELLS,URINE FEW /LPF; RBC,URINE 0-5 /HPF (0-5); WBC,URINE (MAN) 0-5 /HPF (0-5)
[2018-10-19] MEDS ORDERED: SODIUM CHLORIDE 0.9% 1000ML 1,000 ML IV STA ×2 (02:14→02:17)
[2018-10-19 02:15] LABS: BUN/CREATININE RATIO 8 (6-25)
[2018-10-19 02:16] LABS: POTASSIUM 2.1 mmol/L (3.5-5.1)
[2018-10-19] MEDS ORDERED: POTASSIUM CHLORIDE 20 MEQ TAB CR PO STA (02:29)
[2018-10-19] MEDS ORDERED: KCL 20MEQ/.9 SOD CHL 1,000 ML IV ONE (02:30)
[2018-10-19 02:36] LABS: INR 0.89; PROTHROMBIN TIME 12.9 seconds (11.9-14.5)
[2018-10-19] MEDS ORDERED: SODIUM CHLORIDE 0.9% 100 ML ONE ×2 (02:36→11:27)
[2018-10-19 02:37] LABS: PARTIAL THROMBOPLASTIN TIME 25.3 seconds (23.8-35.5)
[2018-10-19] MEDS ORDERED: POTASSIUM CHLORIDE 20MEQ/15ML UDC ONE (02:44)
[2018-10-19] MEDS: CEFEPIME HCL 2 GM VIAL IV SCH ×3 (02:55→22:00)
[2018-10-19] MEDS: MAGNESIUM SULFATE 2GM/50ML 50 ML IV ONE ×2 (03:16→03:23)
[2018-10-19] MEDS ORDERED: ONDANSETRON HCL INJ 2 MG/ML VIAL IV PRN (03:30)
[2018-10-19] MEDS: VANCOMYCIN 1GM/NS 250 ML 250 ML IV SCH ×3 (03:37→21:31)
[2018-10-19 04:00] VITALS: BP 101/69
[2018-10-19 08:17] VITALS: BP 124/56
[2018-10-19] MEDS: LOSARTAN POTASSIUM 100 MG TAB PO SCH (08:52)
[2018-10-19] MEDS: AMLODIPINE BESYLATE 5 MG TAB PO SCH (08:52)
[2018-10-19] MEDS: PANTOPRAZOLE SOD 40 MG TABEC PO SCH (08:52)
[2018-10-19 08:54] VITALS: BP 124/56
[2018-10-19 12:00] VITALS: BP 114/57
[2018-10-19] MEDS: SODIUM CHLORIDE 0.9% 1000ML 1,000 ML IV SCH ×3 (13:17→23:17)
[2018-10-19 16:16] VITALS: BP 119/59
[2018-10-19 20:00] VITALS: BP 154/69
[2018-10-19] MEDS: ZOLPIDEM TARTRATE 10 MG TAB PO SCH (20:43)
[2018-10-20] VITALS (8 sets, daily range): BP systolic 110–148; BP diastolic 59–81
[2018-10-20] MEDS: CEFEPIME HCL 2 GM VIAL IV SCH ×3 (05:47→22:00)
[2018-10-20 06:39] LABS: EOSINOPHILS # (AUTO) 0.1 (0.0-0.4); EOSINOPHILS % 3.7 % (0.0-6.0); HEMATOCRIT 23.1 % (34.2-44.1); HEMOGLOBIN 8.1 g/dL (12.0-16.0); LYMPHOCYTES # (AUTO) 0.9 (1.0-3.2); MEAN CORPUSCULAR HEMOGLOBIN 33.5 pg (28-32); MEAN CORPUSCULAR HGB CONC 35.1 g/dL (31-35); MEAN CORPUSCULAR VOLUME 95.5 fL (81-99); MONOCYTES # (AUTO) 0.3 (0.2-0.8); MONOCYTES % 23.7 % (4.4-11.3); NEUTROPHILS # (AUTO) 0.1 (2.1-6.9); NEUTROPHILS % 9.6 % (38.7-80.0); PLATELET COUNT 241 x10e3/uL (140-360); RED BLOOD COUNT 2.42 x10e6/uL (3.6-5.1); RED CELL DISTRIBUTION WIDTH 16.5 % (11.7-14.4)
[2018-10-20] MEDS ORDERED: POTASSIUM CHLORIDE 20MEQ/100ML 300 ML IV ONE (07:00)
[2018-10-20 07:13] LABS: ALANINE AMINOTRANSFERASE 15 IU/L (0-55); ALBUMIN 1.9 g/dL (3.5-5.0); ALKALINE PHOSPHATASE 61 IU/L (40-150); ANION GAP 8.1 mmol/L (8-16); BLOOD UREA NITROGEN < 5 mg/dL (7-26); BUN/CREATININE RATIO 9 (6-25); CALCIUM 8.2 mg/dL (8.4-10.2); CARBON DIOXIDE 28 mmol/L (22-29); CHLORIDE 108 mmol/L (98-107); CREATININE, SERUM 0.55 mg/dL (0.57-1.11); EST GLOMERULAR FILTRATION RATE > 60 ML/MIN (60-); GLUCOSE 82 mg/dL (74-118); POTASSIUM 3.1 mmol/L (3.5-5.1); SODIUM 141 mmol/L (136-145)
[2018-10-20 07:21] LABS: MAGNESIUM 1.6 MG/DL (1.3-2.1)
[2018-10-20] MEDS ORDERED: POTASSIUM CHLORIDE 10MEQ EA PO ONE (07:45)
[2018-10-20] MEDS ORDERED: POTASSIUM CHLORIDE 20MEQ/100ML 100 ML IV SCH (08:00)
[2018-10-20 08:10] LABS: BLAST CELLS % MANUAL 3; EOSINOPHILS % (MANUAL) 3 % (0-7); LYMPHOCYTES % (MANUAL) 65 % (19-48); MONOCYTES % (MANUAL) 16 % (3.4-9.0); NEUTROPHILS % (MANUAL) 13 % (40-74); PLATELET ESTIMATE ADEQUATE; PLATELET MORPHOLOGY COMMENT NORMAL
[2018-10-20 08:11] LABS: ANISOCYTOSIS SLIG; HOWELL-JOLLY BODIES FEW; HYPOCHROMASIA SLIGHT; RBC MORPHOLOGY COMMENT NORMAL
[2018-10-20] MEDS: AMLODIPINE BESYLATE 5 MG TAB PO SCH (08:24)
[2018-10-20] MEDS: PANTOPRAZOLE SOD 40 MG TABEC PO SCH (08:24)
[2018-10-20] MEDS: SODIUM CHLORIDE 0.9% 1000ML 1,000 ML IV SCH ×2 (08:58→21:04)
[2018-10-20] MEDS: VANCOMYCIN 1GM/NS 250 ML 250 ML IV SCH ×2 (08:58→21:00)
[2018-10-20] MEDS ORDERED: SODIUM CHLORIDE 0.9% 100 ML ONE ×2 (12:06→12:08)
[2018-10-20] MEDS: LOSARTAN POTASSIUM 100 MG TAB PO SCH (12:42)
[2018-10-20] MEDS: HYDROCODONE/APAP 10MG-325MG TAB PO PRN (17:40)
[2018-10-21] VITALS (8 sets, daily range): BP systolic 118–143; BP diastolic 56–76
[2018-10-21] MEDS: SODIUM CHLORIDE 0.9% 1000ML 1,000 ML IV SCH ×2 (05:18→15:52)
[2018-10-21 05:25] LABS: BASOPHILS % 0.7 % (0.0-1.0); EOSINOPHILS # (AUTO) 0.1 (0.0-0.4); HEMATOCRIT 24.4 % (34.2-44.1); HEMOGLOBIN 8.2 g/dL (12.0-16.0); LYMPHOCYTES % 63.8 % (18.0-39.1); MEAN CORPUSCULAR HEMOGLOBIN 32.5 pg (28-32); MEAN CORPUSCULAR HGB CONC 33.6 g/dL (31-35); MEAN CORPUSCULAR VOLUME 96.8 fL (81-99); MONOCYTES # (AUTO) 0.3 (0.2-0.8); MONOCYTES % 22.8 % (4.4-11.3); NEUTROPHILS # (AUTO) 0.1 (2.1-6.9); NEUTROPHILS % 6.7 % (38.7-80.0); PLATELET COUNT 222 x10e3/uL (140-360); RED BLOOD COUNT 2.52 x10e6/uL (3.6-5.1); RED CELL DISTRIBUTION WIDTH 17.2 % (11.7-14.4)
[2018-10-21] MEDS: CEFEPIME HCL 2 GM VIAL IV SCH ×3 (05:36→22:12)
[2018-10-21 06:11] LABS: ANION GAP 10.1 mmol/L (8-16); BLOOD UREA NITROGEN < 5 mg/dL (7-26); CALCIUM 8.6 mg/dL (8.4-10.2); CARBON DIOXIDE 25 mmol/L (22-29); CHLORIDE 108 mmol/L (98-107); CREATININE, SERUM 0.55 mg/dL (0.57-1.11); EST GLOMERULAR FILTRATION RATE > 60 ML/MIN (60-); GLUCOSE 77 mg/dL (74-118); MAGNESIUM 1.5 MG/DL (1.3-2.1); POTASSIUM 3.1 mmol/L (3.5-5.1); SODIUM 140 mmol/L (136-145)
[2018-10-21 06:17] LABS: BUN/CREATININE RATIO 9 (6-25)
[2018-10-21 07:18] LABS: ALANINE AMINOTRANSFERASE 19 IU/L (0-55); ALBUMIN/GLOBULIN RATIO 0.9 (0.8-2.0); ALKALINE PHOSPHATASE 66 IU/L (40-150)
[2018-10-21] MEDS: AMLODIPINE BESYLATE 5 MG TAB PO SCH (09:05)
[2018-10-21] MEDS: PANTOPRAZOLE SOD 40 MG TABEC PO SCH (09:05)
[2018-10-21] MEDS: LOSARTAN POTASSIUM 100 MG TAB PO SCH (09:05)
[2018-10-21] MEDS ORDERED: POTASSIUM CHLORIDE 20 MEQ TAB CR PO STA (14:22)
[2018-10-21] MEDS: HYDROCODONE/APAP 10MG-325MG TAB PO PRN (17:54)
[2018-10-21] MEDS: ZOLPIDEM TARTRATE 10 MG TAB PO SCH (22:12)
[2018-10-22] VITALS (7 sets, daily range): BP systolic 121–143; BP diastolic 59–75
[2018-10-22] MEDS: SODIUM CHLORIDE 0.9% 1000ML 1,000 ML IV SCH ×3 (02:23→21:52)
[2018-10-22] MEDS: CEFEPIME HCL 2 GM VIAL IV SCH ×3 (05:14→21:52)
[2018-10-22 06:14] LABS: BASOPHILS % 0.7 % (0.0-1.0); EOSINOPHILS # (AUTO) 0.1 (0.0-0.4); EOSINOPHILS % 4.4 % (0.0-6.0); HEMATOCRIT 24.1 % (34.2-44.1); HEMOGLOBIN 8.4 g/dL (12.0-16.0); LYMPHOCYTES # (AUTO) 0.8 (1.0-3.2); MEAN CORPUSCULAR HEMOGLOBIN 33.6 pg (28-32); MEAN CORPUSCULAR HGB CONC 34.9 g/dL (31-35); MEAN CORPUSCULAR VOLUME 96.4 fL (81-99); MONOCYTES # (AUTO) 0.4 (0.2-0.8); MONOCYTES % 26.5 % (4.4-11.3); NEUTROPHILS # (AUTO) 0.1 (2.1-6.9); NEUTROPHILS % 7.4 % (38.7-80.0); PLATELET COUNT 240 x10e3/uL (140-360); RED CELL DISTRIBUTION WIDTH 17.2 % (11.7-14.4)
[2018-10-22 06:33] LABS: ALANINE AMINOTRANSFERASE 18 IU/L (0-55); ALBUMIN 1.9 g/dL (3.5-5.0); ALBUMIN/GLOBULIN RATIO 0.9 (0.8-2.0); ALKALINE PHOSPHATASE 67 IU/L (40-150); ANION GAP 8.2 mmol/L (8-16); BLOOD UREA NITROGEN < 5 mg/dL (7-26); CALCIUM 8.5 mg/dL (8.4-10.2); CARBON DIOXIDE 29 mmol/L (22-29); CHLORIDE 105 mmol/L (98-107); CREATININE, SERUM 0.53 mg/dL (0.57-1.11); EST GLOMERULAR FILTRATION RATE > 60 ML/MIN (60-); GLUCOSE 75 mg/dL (74-118); POTASSIUM 3.2 mmol/L (3.5-5.1); SODIUM 139 mmol/L (136-145)
[2018-10-22 06:34] LABS: BUN/CREATININE RATIO 9 (6-25)
[2018-10-22] MEDS: PANTOPRAZOLE SOD 40 MG TABEC PO SCH (09:39)
[2018-10-22] MEDS: LOSARTAN POTASSIUM 100 MG TAB PO SCH (09:39)
[2018-10-22] MEDS: AMLODIPINE BESYLATE 5 MG TAB PO SCH (09:39)
[2018-10-22] MEDS: VANCOMYCIN 1GM/NS 250 ML 250 ML IV SCH ×2 (09:40→21:51)
[2018-10-22] MEDS ORDERED: POTASSIUM CHLORIDE 10MEQ EA PO ONE (10:00)
[2018-10-22] MEDS: HYDROCODONE/APAP 10MG-325MG TAB PO PRN (16:13)
[2018-10-22] MEDS: ZOLPIDEM TARTRATE 10 MG TAB PO PRN (21:55)
[2018-10-23] VITALS: BP 114/54
[2018-10-23 04:00] VITALS: BP 135/61
[2018-10-23] MEDS: CEFEPIME HCL 2 GM VIAL IV SCH (05:19)
[2018-10-23 06:18] LABS: BASOPHILS % 0.5 % (0.0-1.0); EOSINOPHILS # (AUTO) 0.1 (0.0-0.4); HEMATOCRIT 27.3 % (34.2-44.1); HEMOGLOBIN 9.5 g/dL (12.0-16.0); LYMPHOCYTES # (AUTO) 1.3 (1.0-3.2); LYMPHOCYTES % 63.8 % (18.0-39.1); MEAN CORPUSCULAR HEMOGLOBIN 33.5 pg (28-32); MEAN CORPUSCULAR HGB CONC 34.8 g/dL (31-35); MEAN CORPUSCULAR VOLUME 96.1 fL (81-99); MONOCYTES # (AUTO) 0.5 (0.2-0.8); MONOCYTES % 25.1 % (4.4-11.3); NEUTROPHILS # (AUTO) 0.1 (2.1-6.9); NEUTROPHILS % 6.6 % (38.7-80.0); PLATELET COUNT 242 x10e3/uL (140-360); RED BLOOD COUNT 2.84 x10e6/uL (3.6-5.1); RED CELL DISTRIBUTION WIDTH 17.2 % (11.7-14.4)
[2018-10-23 06:44] LABS: ALANINE AMINOTRANSFERASE 17 IU/L (0-55); ALBUMIN 2.2 g/dL (3.5-5.0); ALBUMIN/GLOBULIN RATIO 0.9 (0.8-2.0); ALKALINE PHOSPHATASE 82 IU/L (40-150); ANION GAP 11.4 mmol/L (8-16); BLOOD UREA NITROGEN 5 mg/dL (7-26); BUN/CREATININE RATIO 9 (6-25); CALCIUM 9.1 mg/dL (8.4-10.2); CARBON DIOXIDE 29 mmol/L (22-29); CHLORIDE 104 mmol/L (98-107); CREATININE, SERUM 0.56 mg/dL (0.57-1.11); EST GLOMERULAR FILTRATION RATE > 60 ML/MIN (60-); GLUCOSE 75 mg/dL (74-118); POTASSIUM 3.4 mmol/L (3.5-5.1); SODIUM 141 mmol/L (136-145)
[2018-10-23] MEDS ORDERED: POTASSIUM CHLORIDE 20 MEQ TAB CR PO STA (07:32)
[2018-10-23 07:37] VITALS: BP 140/66
[2018-10-23] MEDS: METRONIDAZOLE 500 MG TAB PO SCH ×3 (08:30→22:03)
[2018-10-23] MEDS: LOSARTAN POTASSIUM 100 MG TAB PO SCH (08:30)
[2018-10-23] MEDS: PANTOPRAZOLE SOD 40 MG TABEC PO SCH (08:30)
[2018-10-23] MEDS: AMLODIPINE BESYLATE 5 MG TAB PO SCH (08:30)
[2018-10-23] MEDS ORDERED: POTASSIUM CHLORIDE 20 MEQ TAB CR PO ONE (10:00)
[2018-10-23] MEDS ORDERED: POTASSIUM CHLORIDE 10MEQ EA PO SCH (10:30)
[2018-10-23 11:49] VITALS: BP 144/72
[2018-10-23] MEDS: HYDROCODONE/APAP 10MG-325MG TAB PO PRN ×2 (13:22→18:45)
[2018-10-23 16:26] VITALS: BP 126/66
[2018-10-23] MEDS: FLUCONAZOLE 100 MG TAB PO SCH (18:59)
[2018-10-23 20:00] VITALS: BP 129/68
[2018-10-23] MEDS: ZOLPIDEM TARTRATE 10 MG TAB PO PRN (22:03)
[2018-10-24] VITALS (7 sets, daily range): BP systolic 118–141; BP diastolic 53–77
[2018-10-24] MEDS ORDERED: DICYCLOMINE HCL 20 MG TAB PO STA (04:22)
[2018-10-24] MEDS: METRONIDAZOLE 500 MG TAB PO SCH ×3 (06:35→22:12)
[2018-10-24 07:10] LABS: BASOPHILS % 1.2 % (0.0-1.0); EOSINOPHILS # (AUTO) 0.1 (0.0-0.4); EOSINOPHILS % 3.6 % (0.0-6.0); HEMATOCRIT 25.3 % (34.2-44.1); HEMOGLOBIN 8.6 g/dL (12.0-16.0); LYMPHOCYTES # (AUTO) 0.9 (1.0-3.2); LYMPHOCYTES % 51.5 % (18.0-39.1); MEAN CORPUSCULAR HEMOGLOBIN 33.2 pg (28-32); MEAN CORPUSCULAR VOLUME 97.7 fL (81-99); MONOCYTES # (AUTO) 0.5 (0.2-0.8); MONOCYTES % 31.4 % (4.4-11.3); NEUTROPHILS # (AUTO) 0.2 (2.1-6.9); NEUTROPHILS % 11.1 % (38.7-80.0); PLATELET COUNT 235 x10e3/uL (140-360); RED BLOOD COUNT 2.59 x10e6/uL (3.6-5.1); RED CELL DISTRIBUTION WIDTH 17.7 % (11.7-14.4)
[2018-10-24 07:35] LABS: ALANINE AMINOTRANSFERASE 15 IU/L (0-55); ALBUMIN/GLOBULIN RATIO 0.9 (0.8-2.0); ALKALINE PHOSPHATASE 78 IU/L (40-150); ANION GAP 10.3 mmol/L (8-16); BLOOD UREA NITROGEN 5 mg/dL (7-26); BUN/CREATININE RATIO 8 (6-25); CALCIUM 9.1 mg/dL (8.4-10.2); CARBON DIOXIDE 31 mmol/L (22-29); CHLORIDE 100 mmol/L (98-107); CREATININE, SERUM 0.59 mg/dL (0.57-1.11); EST GLOMERULAR FILTRATION RATE > 60 ML/MIN (60-); GLUCOSE 72 mg/dL (74-118); POTASSIUM 3.3 mmol/L (3.5-5.1); SODIUM 138 mmol/L (136-145)
[2018-10-24] MEDS: DICYCLOMINE HCL 10 MG CAP PO SCH ×3 (09:04→22:12)
[2018-10-24] MEDS: AMLODIPINE BESYLATE 5 MG TAB PO SCH (09:05)
[2018-10-24] MEDS: LOSARTAN POTASSIUM 100 MG TAB PO SCH (09:05)
[2018-10-24] MEDS: PANTOPRAZOLE SOD 40 MG TABEC PO SCH (09:05)
[2018-10-24] MEDS: FLUCONAZOLE 100 MG TAB PO SCH (09:05)
[2018-10-24 10:53] LABS: NEUTROPHILS % (MANUAL) 12 % (40-74)
[2018-10-24 10:54] LABS: EOSINOPHILS % (MANUAL) 2 % (0-7); LYMPHOCYTES % (MANUAL) 61 % (19-48); MONOCYTES % (MANUAL) 25 % (3.4-9.0)
[2018-10-24 10:55] LABS: PLATELET ESTIMATE ADEQUATE; PLATELET MORPHOLOGY COMMENT NORMAL; RBC MORPHOLOGY COMMENT ABNORMAL
[2018-10-24] MEDS ORDERED: ONDANSETRON HCL 4 MG ORAL DISINTEGRATING TAB PO PRN (11:45)
[2018-10-24] MEDS: HYDROCODONE/APAP 10MG-325MG TAB PO PRN (17:53)
[2018-10-24] MEDS ORDERED: POTASSIUM CHLORIDE 10MEQ EA PO ONE (18:00)
[2018-10-24] MEDS: ZOLPIDEM TARTRATE 10 MG TAB PO PRN (22:12)
[2018-10-25] VITALS (7 sets, daily range): BP systolic 121–132; BP diastolic 56–77
[2018-10-25 05:43] LABS: EOSINOPHILS # (AUTO) 0.1 (0.0-0.4); EOSINOPHILS % 3.1 % (0.0-6.0); HEMATOCRIT 26.4 % (34.2-44.1); HEMOGLOBIN 8.8 g/dL (12.0-16.0); LYMPHOCYTES # (AUTO) 0.9 (1.0-3.2); LYMPHOCYTES % 48.5 % (18.0-39.1); MEAN CORPUSCULAR HGB CONC 33.3 g/dL (31-35); MEAN CORPUSCULAR VOLUME 98.9 fL (81-99); MONOCYTES # (AUTO) 0.6 (0.2-0.8); NEUTROPHILS # (AUTO) 0.3 (2.1-6.9); NEUTROPHILS % 12.9 % (38.7-80.0); PLATELET COUNT 252 x10e3/uL (140-360); RED BLOOD COUNT 2.67 x10e6/uL (3.6-5.1); RED CELL DISTRIBUTION WIDTH 18.3 % (11.7-14.4)
[2018-10-25] MEDS: METRONIDAZOLE 500 MG TAB PO SCH ×3 (05:54→21:55)
[2018-10-25 06:12] LABS: ALANINE AMINOTRANSFERASE 15 IU/L (0-55); ALBUMIN 2.1 g/dL (3.5-5.0); ALBUMIN/GLOBULIN RATIO 0.9 (0.8-2.0); ALKALINE PHOSPHATASE 79 IU/L (40-150); ANION GAP 9.8 mmol/L (8-16); BLOOD UREA NITROGEN 5 mg/dL (7-26); BUN/CREATININE RATIO 8 (6-25); CARBON DIOXIDE 30 mmol/L (22-29); CHLORIDE 99 mmol/L (98-107); CREATININE, SERUM 0.63 mg/dL (0.57-1.11); EST GLOMERULAR FILTRATION RATE > 60 ML/MIN (60-); GLUCOSE 77 mg/dL (74-118); POTASSIUM 3.8 mmol/L (3.5-5.1); SODIUM 135 mmol/L (136-145)
[2018-10-25] MEDS: AMLODIPINE BESYLATE 5 MG TAB PO SCH (08:41)
[2018-10-25] MEDS: FLUCONAZOLE 100 MG TAB PO SCH (08:41)
[2018-10-25] MEDS: LOSARTAN POTASSIUM 100 MG TAB PO SCH (08:41)
[2018-10-25] MEDS: PANTOPRAZOLE SOD 40 MG TABEC PO SCH (08:41)
[2018-10-25] MEDS: DICYCLOMINE HCL 10 MG CAP PO SCH ×4 (08:41→21:00)
[2018-10-25] MEDS: MUPIROCIN 2% OINT 22 GM TUBE TOP SCH (12:04)
[2018-10-25] MEDS: BETAMETHASONE/CLOTRIMAZOLE CR 15 GM TUBE TOP SCH ×2 (12:04→17:06)
[2018-10-25] MEDS: HYDROCODONE/APAP 10MG-325MG TAB PO PRN (17:27)
[2018-10-25] MEDS: ZOLPIDEM TARTRATE 10 MG TAB PO PRN ×2 (21:06→21:15)
[2018-10-26] VITALS: BP 111/57
[2018-10-26] MEDS ORDERED: HYDROXYZINE HCL 10 MG TAB PO PRN
[2018-10-26 01:32] VITALS: BP 125/75
[2018-10-26 04:00] VITALS: BP 140/65
[2018-10-26] MEDS ORDERED: MAGNESIUM SULFATE 2GM/50ML 50 ML IV ONE (04:45)
[2018-10-26] MEDS ORDERED: MAGNESIUM OXIDE 400 MG TAB PO ONE (05:15)
[2018-10-26] MEDS: METRONIDAZOLE 500 MG TAB PO SCH (05:55)
[2018-10-26 07:15] VITALS: BP 131/75
[2018-10-26 07:48] VITALS: BP 131/63
[2018-10-26] MEDS: LOSARTAN POTASSIUM 100 MG TAB PO SCH (08:55)
[2018-10-26] MEDS: MUPIROCIN 2% OINT 22 GM TUBE TOP SCH (08:55)
[2018-10-26] MEDS: AMLODIPINE BESYLATE 5 MG TAB PO SCH (08:55)
[2018-10-26] MEDS: FLUCONAZOLE 100 MG TAB PO SCH (08:55)
[2018-10-26] MEDS: BETAMETHASONE/CLOTRIMAZOLE CR 15 GM TUBE TOP SCH (08:55)
[2018-10-26] MEDS: PANTOPRAZOLE SOD 40 MG TABEC PO SCH (08:55)
[2018-10-26] MEDS: DICYCLOMINE HCL 10 MG CAP PO SCH (08:55)
== END 2018-10-26 10:35 | disposition home health service (06) | DRG 394 ==
LOC: ER 23:45 → ERHOLD 10-19 03:32 → MED/SURG3 10-19 03:58
PROVIDERS: ADMIT Internal Medicine; ATTEND Internal Medicine
DX: K52.1 Toxic gastroenteritis and colitis (principal); C21.0 Malignant neoplasm of anus, unspecified; T45.1X5A Adverse effect of antineoplastic and immunosuppressive drugs, initial encounter; D70.1 Agranulocytosis secondary to cancer chemotherapy; I10 Essential (primary) hypertension; E78.5 Hyperlipidemia, unspecified; E86.0 Dehydration; E87.6 Hypokalemia; E83.42 Hypomagnesemia; K21.9 Gastro-esophageal reflux disease without esophagitis; D64.9 Anemia, unspecified; Z93.3 Colostomy status; Z91.041 Radiographic dye allergy status
CPT/HCPCS: 36415; 71045; 80053; 80202; 81001; 82150; 82270; 82550; 82553; 83605; 83690; 83735; 84484; 85025; 85610; 85730; 93005; 96361; 99284; J0692; J2405; J3370; J3410; J3475; J7030; J7050

== ENCOUNTER 2018-12-21 10:17 | Observation (INO) | payer MEDICARE ==
[~2018-12-21] VITALS: Ht 156.2 cm; Wt 53.8 kg
[2018-12-21] MEDS ORDERED: SODIUM CHLORIDE 0.9% 1000ML 1,000 ML IV STA (10:50)
[2018-12-21] MEDS ORDERED: ONDANSETRON HCL INJ 2MG/ML 2ML 2 MG/ML VIAL IV STA (10:50)
[2018-12-21] MEDS ORDERED: MORPHINE SULFATE INJ 4 MG/ML INJ 1ML IV STA (10:50)
[2018-12-21] MEDS ORDERED: HYDROCODONE/APAP 10MG-325MG TAB PO ONE ×2 (11:00→11:15)
[2018-12-21 11:33] LABS: BILIRUBIN,URINE NEGATIVE (NEGATIVE); CLARITY,URINE SL CLOUDY (CLEAR); COLOR,URINE YELLOW (YELLOW); KETONES,URINE NEGATIVE (NEGATIVE); LEUKOCYTE ESTERASE ,URINE 1+ (NEGATIVE); NITRITE,URINE NEGATIVE (NEGATIVE); PROTEIN,URINE DIPSTICK 2+ (NEGATIVE); URINE UROBILINOGEN 0.2 mg/dL (0.2 - 1)
[2018-12-21 11:45] LABS: BACTERIA,URINE MODERATE /HPF; EPITHELIAL CELLS,URINE FEW /LPF; MUCUS,URINE FEW (RARE); WBC,URINE (MAN) >50 /HPF (0-5)
[2018-12-21] MEDS ORDERED: CEFTRIAXONE SOD 1 GM/NS 50 ML 50 ML IV ONE (12:00)
[2018-12-21 12:25] LABS: BASOPHILS % 0.1 % (0.0-1.0); EOSINOPHILS % 0.1 % (0.0-6.0); HEMATOCRIT 36.4 % (34.2-44.1); HEMOGLOBIN 12.2 g/dL (12.0-16.0); LYMPHOCYTES # (AUTO) 0.9 (1.0-3.2); LYMPHOCYTES % 10.4 % (18.0-39.1); MEAN CORPUSCULAR HEMOGLOBIN 32.1 pg (28-32); MEAN CORPUSCULAR HGB CONC 33.5 g/dL (31-35); MEAN CORPUSCULAR VOLUME 95.8 fL (81-99); MONOCYTES # (AUTO) 0.6 (0.2-0.8); NEUTROPHILS # (AUTO) 7.2 (2.1-6.9); NEUTROPHILS % 82.1 % (38.7-80.0); PLATELET COUNT 350 x10e3/uL (140-360); RED CELL DISTRIBUTION WIDTH 12.5 % (11.7-14.4)
[2018-12-21 12:44] LABS: ALANINE AMINOTRANSFERASE 11 IU/L (0-55); ALBUMIN 3.8 g/dL (3.5-5.0); ALKALINE PHOSPHATASE 71 IU/L (40-150); AMYLASE 40 U/L (25-125); BLOOD UREA NITROGEN 16 mg/dL (7-26); BUN/CREATININE RATIO 23 (6-25); CARBON DIOXIDE 23 mmol/L (22-29); CHLORIDE 97 mmol/L (98-107); CREATININE, SERUM 0.71 mg/dL (0.57-1.11); EST GLOMERULAR FILTRATION RATE > 60 ML/MIN (60-); GLUCOSE 131 mg/dL (74-118); LIPASE 21 U/L (8-78); SODIUM 132 mmol/L (136-145)
[2018-12-21] MEDS ORDERED: HYDROMORPHONE 2MG/ML 2 MG/ML ML IV NR (14:30)
--- NOTE | 2018-12-21 15:17 | Diagnostic Imaging Report ---
EXAM: CT ABDOMEN/PELVIS WO INDICATION: Lower abdominal pain, difficulty urinating. COMPARISON: CT Abdomen/Pelvis 07/23/2018. TECHNIQUE: The abdomen and pelvis were scanned using a multidetector helical scanner. Coronal and sagittal reformations were obtained. RADIATION DOSE: DLP: 536.3 mGy-cm Dose modulation, iterative reconstruction, and/or weight based adjustment of the mA/kV was utilized to reduce the radiation dose to as low as reasonably achievable. FINDINGS: Lack of IV contrast decreases sensitivity in evaluating abdominal and pelvic organs. LOWER THORAX: Again noted is a large hiatal hernia containing most of the stomach. LIVER/BILIARY: No evidence of solid mass or biliary ductal dilatation. Status post cholecystectomy. SPLEEN: Unremarkable PANCREAS: No evidence of solid mass. ADRENALS: No nodules KIDNEYS: Interval development of moderate right and mild left hydronephrosis and hydroureter. No evidence of obstructing stone or solid mass. GI TRACT: Interval left lower quadrant colostomy. No bowel obstruction. Mild distal rectal thickening and perirectal stranding is slightly improved from the prior CT on 07/23/2018. Suboptimal evaluation in the absence of IV contrast. VESSELS: There are extensive atherosclerotic calcifications in the aorta and branch vessels. PERITONEUM/RETROPERITONEUM: Again noted is mild presacral and perirectal edema. LYMPH NODES: No lymphadenopathy REPRODUCTIVE ORGANS/BLADDER: Fibroid uterus. The bladder is distended. BONES: Unchanged displaced right pubic rami fractures sclerosis of the pubic symphysis. IMPRESSION: Distended bladder with interval development of moderate right and mild left hydronephrosis. Findings are suggestive of bladder outlet obstruction. Suggest Phillips catheter placement for decompression. Interval creation of left lower quadrant colostomy. Mild distal rectal wall thickening and perirectal stranding is slightly improved from the prior CT. Findings may be inflammatory or posttreatment related, although evaluation for malignancy is limited in the absence of IV contrast. Signed by: Dr. Javier Aguilar MD on 12/21/2018 3:14 PM
[2018-12-21] MEDS ORDERED: ONDANSETRON HCL INJ 2MG/ML 2ML 2 MG/ML VIAL IV PRN (16:30)
[2018-12-21] MEDS ORDERED: SODIUM CHLORIDE FLUSH 10 ML SYR INJ PRN (16:30)
[2018-12-21] MEDS: CEFTRIAXONE SOD 1 GM/NS 50 ML 50 ML IV SCH (17:00)
[2018-12-21 20:03] VITALS: BP 172/74
[2018-12-21 20:25] VITALS: BP 172/74
--- NOTE | 2018-12-21 21:37 | NUR ---
Spoke to Dr. Arenas about reconciling the patient's medication as he is her provider. Patient states she has not taken her blood pressure medications today. Will administer today as her BP is 172/74 and then will resume tomorrow morning the schedule times.
[2018-12-21] MEDS: ATORVASTATIN 20 MG TAB PO SCH (22:23)
[2018-12-21] MEDS: ZOLPIDEM TARTRATE 10 MG TAB PO PRN (22:23)
[2018-12-21] MEDS: OLMESARTAN 20 MG TAB PO SCH (22:24)
--- NOTE | 2018-12-21 22:44 | Consultation ---
DATE OF CONSULTATION: December 21, 2018 UROLOGY CONSULTATION REASON FOR CONSULTATION: Urinary retention. HISTORY OF PRESENT ILLNESS: Harmony White is an 83-year-old woman who has not had a urological evaluation previously. Patient has had a long and complicated history. She did have an admission for urinary tract infection and hematuria, but this was also accompanied with uterine bleeding. Urological consultation was not sought at that point in time. The patient has been dribbling incontinent for the last week or so, reported to the emergency room, was found to have on physical examination urinary retention. Phillips catheter was placed with 1300 mL of urinary retention. Following this, CT scanning revealed hydroureteronephrosis. The patient was subsequently admitted. The patient denies any previous urolithiasis. She does report having had some incontinence prior with stress and urge type in nature. PAST MEDICAL AND SURGICAL HISTORY 1. Status post right oophorectomy and appendectomy. 2. Status post cholecystectomy. 3. Anal cancer, status post radiotherapy which resulted in anal stenosis resulted in a colostomy placement. 4. Cancer of the uterine lining, status post chemotherapy which was discontinued. 5. 6, para 6 by spontaneous vaginal delivery. ALLERGIES: IODINE AND MORPHINE. CURRENT MEDICATIONS: Please refer to the MAR. SOCIAL HISTORY: The patient denies smoking, ethanol, and drug use. 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 FAMILY HISTORY: Noncontributory to the active urological problems. REVIEW OF SYSTEMS: As consistent with above history of present illness and past medical history, otherwise negative for all systems. PHYSICAL EXAMINATION GENERAL: A very pleasant lean elderly woman lying in bed, in no apparent distress. VITAL SIGNS: She is currently afebrile. Vital signs are currently stable. ABDOMEN: Soft, nondistended, and nontender without costovertebral angle tenderness. Kidneys are not palpable. There is a colostomy present which is functional and healthy appearing. GENITOURINARY: Patient has severely atrophic vaginitis. She has a Phillips catheter in place that is draining clear urine output. LABORATORY STUDIES: White blood cell count is 8730, hemoglobin 12.2, and platelets 350,000. The patient's sodium is low at 132. Her creatinine is normal at 0.71. Her urinalysis is significant for 11 to 20 RBCs and 50 WBCs, moderate bacteria and a few epithelial cells. CT scan of the abdomen and pelvis was done as a stone protocol, revealed moderate right hydroureteronephrosis and mild left hydroureteronephrosis with no stone. Distended bladder was noted on the CT and this was managed with Phillips catheterization. ASSESSMENT 1. Urinary retention for 1300 mL. 2. Urinary tract infection. 3. Hematuria. 4. Probable neurogenic bladder due to radiotherapy of the anus and pelvis. 5. Urinary incontinence. 6. Bilateral hydroureteronephrosis. 7. Phillips catheter in situ. 8. Hyponatremia. PLAN 1. I defer the electrolyte and hematological abnormalities to the admitting physician. 2. Leave the Phillips catheter in place at the present time. 3. The patient will be discharged with Phillips catheter in place in order to have a urodynamic study done in the office to determine whether the patient really will recover bladder function. 4. I recommend a voiding urine culture and sensitivity and adjusting the patient's antibiotics accordingly. 5. At some point in time, cystoscopic examination will be warranted. Thank you very much for involving us in the care of your patient. We will be happy to follow her along with you as well as an outpatient. Job#: [id number] CF cc:GÓMEZ MUÑOZ MD
[2018-12-22] VITALS (7 sets, daily range): BP systolic 126–147; BP diastolic 60–66
[2018-12-22] MEDS: CEFTRIAXONE SOD 1 GM/NS 50 ML 50 ML IV SCH ×2 (05:30→17:19)
[2018-12-22 06:11] LABS: ALANINE AMINOTRANSFERASE 8 IU/L (0-55); ALBUMIN 2.7 g/dL (3.5-5.0); ALBUMIN/GLOBULIN RATIO 0.9 (0.8-2.0); ALKALINE PHOSPHATASE 57 IU/L (40-150); ANION GAP 10.8 mmol/L (8-16); BLOOD UREA NITROGEN 10 mg/dL (7-26); BUN/CREATININE RATIO 16 (6-25); CALCIUM 9.2 mg/dL (8.4-10.2); CARBON DIOXIDE 27 mmol/L (22-29); CHLORIDE 102 mmol/L (98-107); CREATININE, SERUM 0.62 mg/dL (0.57-1.11); EST GLOMERULAR FILTRATION RATE > 60 ML/MIN (60-); GLUCOSE 83 mg/dL (74-118); POTASSIUM 3.8 mmol/L (3.5-5.1); SODIUM 136 mmol/L (136-145)
--- NOTE | 2018-12-22 07:00 | NUR ---
SHIFT REPORT RECEIVED FROM NIGHT RN WHILE ROUNDING. PT DENIES NEEDS AT THIS TIME.
[2018-12-22 07:02] LABS: BASOPHILS % 0.2 % (0.0-1.0); EOSINOPHILS % 0.3 % (0.0-6.0); HEMATOCRIT 30.1 % (34.2-44.1); HEMOGLOBIN 9.9 g/dL (12.0-16.0); LYMPHOCYTES # (AUTO) 1.1 (1.0-3.2); LYMPHOCYTES % 19.8 % (18.0-39.1); MEAN CORPUSCULAR HEMOGLOBIN 31.7 pg (28-32); MEAN CORPUSCULAR HGB CONC 32.9 g/dL (31-35); MEAN CORPUSCULAR VOLUME 96.5 fL (81-99); MONOCYTES # (AUTO) 0.6 (0.2-0.8); MONOCYTES % 10.3 % (4.4-11.3); NEUTROPHILS % 69.1 % (38.7-80.0); PLATELET COUNT 258 x10e3/uL (140-360); RED BLOOD COUNT 3.12 x10e6/uL (3.6-5.1); RED CELL DISTRIBUTION WIDTH 12.6 % (11.7-14.4)
[2018-12-22] MEDS ORDERED: OLMESARTAN MEDOXOMIL 5 MG TABLET PO SCH (09:00)
[2018-12-22] MEDS: OLMESARTAN 20 MG TAB PO SCH (09:15)
[2018-12-22] MEDS: AMLODIPINE BESYLATE 5 MG TAB PO SCH (09:15)
[2018-12-22] MEDS: PANTOPRAZOLE SOD 40 MG TABEC PO SCH (09:15)
[2018-12-22] MEDS: HYDROCODONE/APAP 10MG-325MG TAB PO PRN (12:48)
--- NOTE | 2018-12-22 12:56 | NUR ---
TELEPHONIC NURSE CASE MANAGER INITIAL ASSESSMENT Tax Director to bedside to discuss plan of care with patient/family. CM/SW role and care transitions discussed. Anticipated discharge plan discussed along with duration of care. CM/SW discussed patients right to make decisions in care. CM/SW work hours given. Patient lives: with her Carlos Enrique Admit/Transfer: ED POA/Emergency contact: : Carlos Enrique Stallings [phone] Current/Previous Home Health: Has [facility] and wants to continue with them PCP/Follow-up Care: Dr. Clive Arenas Current/Previous DME: rolling walker with a seat. She presently has a maria catheter, and states will go home with it. Other Services: none Employment Status: Retired Areas of Concerns: none Referral Needs: needs Education Needs: maria cath care IMM/MORAN given and signed (if applicable): MORAN from ED Goal for discharge:to dc home with [facility] and follow up with urologist Patient states she is going home with maria for 2 weeks, and is to follow up with urologist for outpatient care. States is to dc home tomorrow. CM/SW left business card at the bedside with contact information. Name and number was also written on the patients whiteboard. Patient verbalized understanding of discussion. CM will follow-up with ongoing discharge and transition of care needs.
--- NOTE | 2018-12-22 13:40 | NUR ---
Visit made by the Spiritual Care Department Pastoral Visitor, Natalie Rainey. Pt sleeping soundly and no family present. Pastoral Visitor left a card describing availability of chemical compounder and instructions on how to contact a chemical compounder. GALO KNUTSON Student Development Advisor Spiritual Care Department O: [phone] Pager: [phone] ([phone] number calling from)
[2018-12-22] MEDS: ATORVASTATIN 20 MG TAB PO SCH (21:00)
[2018-12-22] MEDS ORDERED: ATORVASTATIN 20 MG TAB PO SCH (21:00)
[2018-12-23] VITALS: BP 107/53
[2018-12-23 04:00] VITALS: BP 128/61
[2018-12-23] MEDS: CEFTRIAXONE SOD 1 GM/NS 50 ML 50 ML IV SCH ×2 (05:00→16:31)
[2018-12-23 07:38] VITALS: BP 108/56
[2018-12-23] MEDS: OLMESARTAN 20 MG TAB PO SCH (08:21)
[2018-12-23] MEDS: AMLODIPINE BESYLATE 5 MG TAB PO SCH (08:21)
[2018-12-23] MEDS: PANTOPRAZOLE SOD 40 MG TABEC PO SCH (08:21)
[2018-12-23 11:19] VITALS: BP 121/63
--- NOTE | 2018-12-23 11:46 | NUR ---
SELAM SPOKE TO DR. MUÑOZ REGARDING PATIENT PLAN OF CARE AND DISCHARGE PLAN. PER DR. MUÑOZ, PATIENT TO BE DISCHARGED HOME TODAY ON PO ANTIBIOTICS. SELAM CALLED BEDSIDE LUAN INFANTE AND INFORMED HER. SHE STATES DR. PAREKH ORDERED FURTHER TESTING. ARELIS STATES SHE WILL CALL DR. MUÑOZ REGARDING PLAN OF CARE AND IF HE WANTS TO STILL DISCHARGE PATIENT OR MAKE INPATIENT.
[2018-12-23] MEDS: HYDROCODONE/APAP 10MG-325MG TAB PO PRN ×2 (15:34→23:16)
[2018-12-23] MEDS ORDERED: MAGNESIUM HYDROXIDE 30 ML UDC PO ONE (15:45)
[2018-12-23 15:52] VITALS: BP 116/61
--- NOTE | 2018-12-23 20:06 | NUR ---
Report given to KARMA
--- NOTE | 2018-12-23 21:00 | NUR ---
Report given to [facility] and transported to room 103.
[2018-12-23 21:18] VITALS: BP 140/65
--- NOTE | 2018-12-23 21:18 | NUR ---
RECEIVED PATIENT VIA HOSPITAL BED. ALERT AND VERBAL. NO CONFUSION NOTED. BANKS CATHETER IN PLACED DRAINING O PALE YELLOW URINE. COLOSTOMY TO LEFT NOTED.
[2018-12-23] MEDS: ATORVASTATIN 20 MG TAB PO SCH (21:45)
[2018-12-23] MEDS: ZOLPIDEM TARTRATE 10 MG TAB PO PRN (22:10)
[2018-12-24] VITALS: BP 131/58
[2018-12-24 00:44] VITALS: BP 131/58
[2018-12-24 04:00] VITALS: BP 126/59
[2018-12-24] MEDS ORDERED: SODIUM CHLORIDE 0.9% 250ML 250 ML ONE (04:52)
[2018-12-24] MEDS: CEFTRIAXONE SOD 1 GM/NS 50 ML 50 ML IV SCH (05:05)
--- NOTE | 2018-12-24 07:00 | NUR ---
BEDSIDE ROUNDS COMPLETE NO DISTRESS NOTED, UPDATED ON POC VOICED UNDERSTANDING,DENIES PAIN AT THIS TIME, CALL LIGHT IN REACH WILL CONTINUE TO MONITOR
--- NOTE | 2018-12-24 07:03 | NUR ---
REPORT GIVEN TO ONCOMING NURSE.
[2018-12-24 08:16] VITALS: BP 114/56
--- NOTE | 2018-12-24 08:30 | NUR ---
DR BRIONES AT BEDSIDE, OK TO DC PT HOME
[2018-12-24] MEDS ORDERED: CIPROFLOXACIN 250 MG TAB PO SCH (09:00)
[2018-12-24 09:10] VITALS: BP 114/56
[2018-12-24] MEDS: AMLODIPINE BESYLATE 5 MG TAB PO SCH (09:10)
[2018-12-24] MEDS: OLMESARTAN 20 MG TAB PO SCH (09:10)
[2018-12-24] MEDS: PANTOPRAZOLE SOD 40 MG TABEC PO SCH (09:10)
[2018-12-24] MEDS: HYDROCODONE/APAP 10MG-325MG TAB PO PRN (10:30)
[2018-12-24] MEDS ORDERED: MACROBID 100 M100 MG PO (12:16)
--- NOTE | 2018-12-24 14:11 | NUR ---
PT AND EDUCATED ON BANKS CARE, (SWETHA CARE, EMPTYING BAG) SWITCHING BETWEEN LEG BAG AND BEDSIDE BAG, VOICED UNDERSTANDING AND DEMONSTRATION RETURNED TO NURSE
--- NOTE | 2018-12-25 05:17 | Discharge Summary ---
DISCHARGE DIAGNOSES 1. Urinary tract infection. 2. Urinary retention. HISTORY OF PRESENT ILLNESS AND HOSPITAL COURSE: Patient is an 83-year-old lady who was brought in with abdominal pain. Was found to have urinary attention and had a Phillips placed with 1.2 L removed with significant improvement of her symptoms. She did have some evidence of urinary tract infection, even though the culture only grew out staph. At the time of discharge, was taught how to use the Phillips. She was seen by Dr. Tomas. She was discharged home with p.o. antibiotics, and is going to follow up with Dr. Tomas in 2 weeks to do urodynamic studies to see if the catheter can stay in place. There were no other issues during her hospitalization. She was discharged with her home medications. Please see hospital chart for full details. GÓMEZ MUÑOZ MD Job#: [id number] [place]
== END 2018-12-24 14:14 | disposition home or self-care (01) ==
LOC: ER 10:17 → ERHOLD 16:33 → IMCU 20:09 → MED/SURG 12-23 21:18
PROVIDERS: ADMIT Internal Medicine; ATTEND Internal Medicine
DX: N30.01 Acute cystitis with hematuria (principal); N13.9 Obstructive and reflux uropathy, unspecified; I10 Essential (primary) hypertension; E78.5 Hyperlipidemia, unspecified; E78.00 Pure hypercholesterolemia, unspecified; K21.9 Gastro-esophageal reflux disease without esophagitis; Z85.038 Personal history of other malignant neoplasm of large intestine; Z85.42 Personal history of malignant neoplasm of other parts of uterus; Z93.3 Colostomy status; Z88.5 Allergy status to narcotic agent; Z91.048 Other nonmedicinal substance allergy status; R33.9 Retention of urine, unspecified; N13.6 Pyonephrosis; E87.1 Hypo-osmolality and hyponatremia; N39.46 Mixed incontinence; D64.9 Anemia, unspecified; Z85.048 Personal history of other malignant neoplasm of rectum, rectosigmoid junction, and anus; B95.7 Other staphylococcus as the cause of diseases classified elsewhere; B95.2 Enterococcus as the cause of diseases classified elsewhere
CPT/HCPCS: 36415 ×2; 51700; 74176; 80053 ×2; 81001; 82150; 83690; 85025 ×2; 87086 ×2; 87186 ×2; 99284; G0378 ×4; J0696 ×4; J1170; J2405; J7030; J7050; S0164 ×3

== ENCOUNTER 2019-06-10 12:45 | Emergency (ER) | payer MEDICARE ==
[~2019-06-10] VITALS: Ht 156.2 cm; Wt 53.5 kg
[~2019-06-10 12:45] MED LIST changes: +MACROBID 100 M100 MG PO
--- NOTE | 2019-06-10 13:24 | NUR ---
PATIENT TO ROOM 10
[2019-06-10 14:13] LABS: CLARITY,URINE CLOUDY (CLEAR); COLOR,URINE RED (YELLOW); LEUKOCYTE ESTERASE ,URINE MODERATE (NEGATIVE)
[2019-06-10 14:14] LABS: KETONES,URINE NEGATIVE (NEGATIVE); NITRITE,URINE POSITIVE (NEGATIVE); PROTEIN,URINE DIPSTICK 2+ (NEGATIVE); URINE UROBILINOGEN 0.2 mg/dL (0.2 - 1)
[2019-06-10 14:15] LABS: BILIRUBIN,URINE MODERATE (NEGATIVE)
[2019-06-10 14:19] LABS: AMORPHOUS SEDIMENT,URINE MODERATE (FEW); BACTERIA,URINE MANY /HPF; EPITHELIAL CELLS,URINE FEW /LPF
[2019-06-10] MEDS ORDERED: MACROBID 100 M100 MG PO (14:40)
[2019-06-10] MEDS ORDERED: NITROFURANTOIN MACROCRYSTALS 100 MG CAP PO ONE (14:45)
== END 2019-06-10 15:08 | disposition home or self-care (01) ==
LOC: ER 12:45
DX: R31.0 Gross hematuria (principal)
CPT/HCPCS: 81001; 99284

== ENCOUNTER 2019-07-04 16:35 | Inpatient (IN) | payer MEDICARE ==
[~2019-07-04] VITALS: Ht 154.9 cm; Wt 51.0 kg
[2019-07-04] VITALS (11 sets, daily range): BP systolic 101–135; BP diastolic 63–88
[2019-07-04] MEDS ORDERED: ASPIRIN 81 MG CHEW TAB PO ONE (17:15)
[2019-07-04 17:23] LABS: BASOPHILS % 0.4 % (0.0-1.0); EOSINOPHILS % 0.4 % (0.0-6.0); HEMATOCRIT 28.1 % (34.2-44.1); HEMOGLOBIN 9.2 g/dL (12.0-16.0); LYMPHOCYTES # (AUTO) 1.3 (1.0-3.2); LYMPHOCYTES % 23.6 % (18.0-39.1); MEAN CORPUSCULAR HEMOGLOBIN 30.1 pg (28-32); MEAN CORPUSCULAR HGB CONC 32.7 g/dL (31-35); MEAN CORPUSCULAR VOLUME 91.8 fL (81-99); MONOCYTES # (AUTO) 0.4 (0.2-0.8); MONOCYTES % 7.4 % (4.4-11.3); NEUTROPHILS # (AUTO) 3.6 (2.1-6.9); NEUTROPHILS % 67.6 % (38.7-80.0); PLATELET COUNT 425 x10e3/uL (140-360); RED BLOOD COUNT 3.06 x10e6/uL (3.6-5.1); RED CELL DISTRIBUTION WIDTH 14.6 % (11.7-14.4)
[2019-07-04 17:31] LABS: INR 0.93
[2019-07-04 17:32] LABS: PARTIAL THROMBOPLASTIN TIME 32.6 seconds (23.8-35.5)
--- NOTE | 2019-07-04 17:35 | Diagnostic Imaging Report ---
Examination: Single AP view of the chest. COMPARISON: AP chest 10/19/2018 INDICATION: Shortness of breath IMPRESSION: 1. Lines and Tubes: Stable left upper chest Port-A-Cath, with catheter distal tip projecting at the junction of the left innominate vein and SVC. 2. Lungs are well-inflated. Bilateral pleural effusions, left greater than right with likely associated bibasilar compressive atelectasis. Bilateral interstitial opacities extending from the maggie, consistent with interstitial pulmonary edema. Findings likely represent CHF/fluid overload 3. Cardiac silhouette is obscured. Central pulmonary vascular congestion. 4. No acute bony abnormalities. Signed by: Dr. Christiano Louise M.D. on 07/04/2019 5:31 PM
[2019-07-04 17:41] LABS: ALBUMIN 2.4 g/dL (3.5-5.0); ALBUMIN/GLOBULIN RATIO 0.6 (0.8-2.0); ANION GAP 11.8 mmol/L (8-16); CALCIUM 10.6 mg/dL (8.4-10.2); CREATININE, SERUM 1.07 mg/dL (0.57-1.11); POTASSIUM 3.8 mmol/L (3.5-5.1)
[2019-07-04 17:48] LABS: CREATINE KINASE MB 0.7 ng/mL (0-5.0)
[2019-07-04] MEDS ORDERED: FUROSEMIDE INJ 10 MG/ML 2 ML VIAL IV ONE (18:15)
[2019-07-04] MEDS ORDERED: FUROSEMIDE INJ 10 MG/ML 4 ML VIAL ONE (18:21)
[2019-07-04] MEDS: CEFTRIAXONE SOD 1 GM/NS 50 ML 50 ML IV SCH (18:24)
[2019-07-04 18:44] LABS: CLARITY,URINE TURBID (CLEAR); COLOR,URINE YELLOW (YELLOW)
[2019-07-04 18:47] LABS: LEUKOCYTE ESTERASE ,URINE LARGE (NEGATIVE); NITRITE,URINE NEGATIVE (NEGATIVE)
[2019-07-04 18:49] LABS: PROTEIN,URINE DIPSTICK 2+ (NEGATIVE)
[2019-07-04 18:52] LABS: BILIRUBIN,URINE NEGATIVE (NEGATIVE); KETONES,URINE NEGATIVE (NEGATIVE); URINE UROBILINOGEN 0.2 mg/dL (0.2 - 1)
[2019-07-04 19:08] LABS: BACTERIA,URINE MODERATE /HPF; EPITHELIAL CELLS,URINE RARE /LPF
[2019-07-04 19:09] LABS: AMORPHOUS SEDIMENT,URINE MODERATE (FEW); TRIPLE PHOSPHATE CRYSTAL,UR MODERATE (FEW)
[2019-07-04] MEDS: AZITHROMYCIN 500MG/NS 250 ML 250 ML IV SCH (19:25)
[2019-07-04] MEDS: FAMOTIDINE 20 MG/2 ML VIAL IV SCH (19:50)
--- NOTE | 2019-07-04 20:10 | NUR ---
ECHOVASCULAR TECH AT BEDSIDE FOR ECHO.
[2019-07-04] MEDS: HYDROCODONE/APAP 10MG-325MG TAB PO PRN (23:45)
[2019-07-05] VITALS (29 sets, daily range): BP systolic 97–132; BP diastolic 60–90
[2019-07-05] MEDS: ZOLPIDEM TARTRATE 10 MG TAB PO PRN
[2019-07-05 01:50] LABS: CREATINE KINASE MB 0.7 ng/mL (0-5.0)
[2019-07-05 05:05] LABS: BASOPHILS % 0.2 % (0.0-1.0); EOSINOPHILS % 0.9 % (0.0-6.0); HEMOGLOBIN 7.2 g/dL (12.0-16.0); LYMPHOCYTES # (AUTO) 1.4 (1.0-3.2); LYMPHOCYTES % 34.1 % (18.0-39.1); MEAN CORPUSCULAR HEMOGLOBIN 30.3 pg (28-32); MEAN CORPUSCULAR HGB CONC 32.9 g/dL (31-35); MONOCYTES # (AUTO) 0.4 (0.2-0.8); MONOCYTES % 10.4 % (4.4-11.3); NEUTROPHILS # (AUTO) 2.3 (2.1-6.9); NEUTROPHILS % 54.2 % (38.7-80.0); PLATELET COUNT 336 x10e3/uL (140-360); RED BLOOD COUNT 2.38 x10e6/uL (3.6-5.1); RED CELL DISTRIBUTION WIDTH 14.7 % (11.7-14.4)
[2019-07-05 05:16] LABS: HEMATOCRIT 21.9 % (34.2-44.1)
[2019-07-05 05:25] LABS: ALBUMIN 1.7 g/dL (3.5-5.0); ALBUMIN/GLOBULIN RATIO 0.5 (0.8-2.0); ALKALINE PHOSPHATASE 90 IU/L (40-150); ANION GAP 9.4 mmol/L (8-16); BLOOD UREA NITROGEN 11 mg/dL (7-26); BUN/CREATININE RATIO 13 (6-25); CALCIUM 8.9 mg/dL (8.4-10.2); CARBON DIOXIDE 28 mmol/L (22-29); CHLORIDE 98 mmol/L (98-107); CHOL/HDL RATIO 3.6 (3.0-3.6); CHOLESTEROL 103 MD/DL (0-199); CREATININE, SERUM 0.86 mg/dL (0.57-1.11); EST GLOMERULAR FILTRATION RATE > 60 ML/MIN (60-); GLUCOSE 74 mg/dL (74-118); HDL CHOLESTEROL 29 MG/DL (40-60); LDL CHOLESTEROL 56 MG/DL (60-130); POTASSIUM 3.4 mmol/L (3.5-5.1); SODIUM 132 mmol/L (136-145); TRIGLYCERIDES 90 MG/DL (0-149)
[2019-07-05 05:26] LABS: ALANINE AMINOTRANSFERASE < 6 IU/L (0-55)
--- NOTE | 2019-07-05 06:39 | NUR ---
Called Dr. Gregoria Tomas's office to inform him of consult. Message left with answering service.
--- NOTE | 2019-07-05 06:42 | Diagnostic Imaging Report ---
A single frontal view of the chest. HISTORY: Shortness of breath COMPARISON: Chest radiograph July 04, 2019 DISCUSSION: Portable technique, limits sensitivity of the exam. Multiple overlying artifacts. Tubes/Lines: Unchanged appearance of the left chest port. Lungs and pleura: Moderate left and small right pleural effusions with adjacent atelectasis. Interval increase in the pulmonary interstitial markings and patchy airspace opacities. Heart and mediastinum: The cardiac silhouette and central pulmonary vasculature appear(s) remain enlarged. Bones and soft tissues: Appear unremarkable, given this limited exam. IMPRESSION: Findings remain compatible with volume overload, slightly increased. Signed by: Dr. Jorge Irizarry D.O., M.M.M. on 07/05/2019 6:39 AM
[2019-07-05] MEDS: LOSARTAN POTASSIUM 100 MG TAB PO SCH (08:25)
[2019-07-05] MEDS: HYDROCODONE/APAP 10MG-325MG TAB PO PRN ×2 (08:25→21:45)
[2019-07-05] MEDS: PANTOPRAZOLE SOD 40 MG TABEC PO SCH (08:25)
[2019-07-05] MEDS: AMLODIPINE BESYLATE 5 MG TAB PO SCH (08:25)
[2019-07-05] MEDS: FAMOTIDINE 20 MG/2 ML VIAL IV SCH ×2 (08:25→20:12)
[2019-07-05] MEDS: FUROSEMIDE INJ 10 MG/ML 2 ML VIAL IV SCH (08:25)
[2019-07-05 09:22] LABS: HEMATOCRIT 26.2 % (34.2-44.1); HEMOGLOBIN 8.6 g/dL (12.0-16.0)
[2019-07-05 09:43] LABS: CREATINE KINASE MB 0.8 ng/mL (0-5.0)
[2019-07-05] MEDS: ONDANSETRON HCL INJ 2MG/ML 2ML 2 MG/ML VIAL IV PRN (11:29)
--- NOTE | 2019-07-05 12:27 | Consultation ---
DATE OF CONSULTATION: 07/05/2019 Urologic Consultation Consultation is called by Dr. Arenas. CHIEF UROLOGIC COMPLAINT AND REASON FOR CONSULTATION: Urinary retention. HISTORY OF PRESENT ILLNESS: Ms. Horta is an 84-year-old female patient, admitted to the hospital with pneumonia and CHF flare, found to be in urinary retention, history of urinary incontinence, and UTIs. PAST MEDICAL HISTORY: Notable for hypertension, uterine and rectal cancer, status post cholecystectomy, status post appendectomy, status post colostomy, status post oophorectomy. MEDICATIONS: Please see MAR. ALLERGIES: NKDA. SOCIAL HISTORY: Denied smoking or drinking. FAMILY HISTORY: Denied urologic stones or malignancies. REVIEW OF SYSTEMS: Noncontributory, other than problems mentioned above for 12 organ systems. PHYSICAL EXAMINATION: GENERAL: Elderly female, in no acute distress. VITAL SIGNS: Currently, she is afebrile with stable vital signs. HEENT: Sclerae anicteric. NECK: Supple. BACK: Without costovertebral angle tenderness bilaterally. ABDOMEN: Soft. It is nontender. It is nondistended. There is no palpable mass. No palpable hernias. No palpable adenopathy. : Normal female genitalia. EXTREMITIES: No edema. NEURO: Moving all four extremities. PSYCH: Alert and mood appropriate. SKIN: Intact. Normal color. PERTINENT LABORATORY DATA: CBC normal except for hemoglobin 9.2, hematocrit 28. Chemistries normal except for sodium 131, chloride 95, calcium 10.6. IMPRESSION: 1. Urinary retention. 2. Urinary incontinence. 3. Urinary tract infections, chronic. 4. Anemia. 5. Hypercalcemia. We will follow the patient. She would benefit from outpatient urodynamics studies. Thank you for allowing me to participate in the care of your patient. I will be happy to follow along with you. Torrey Huynh MD ES/MODL /[id number] cc: Clive Arenas MD MTDD
--- NOTE | 2019-07-05 14:56 | NUR ---
Nutrition Intervention Note RD Recommendation(s) for Physician: -Continue cardiac diet as ordered -Rec Ensure Enlive BID to increase protein-calorie intake -The patient meets criteria for MODERATE protein-calorie malnutrition. Plan of Care: RD following, monitoring for tolerance and adequacy, ONS rec Nutrition reason for involvement: Diagnosis RD Assessment (07/05) 84yo F, who was admitted for CHF. CXR showed volume overload. Visited pt in the room. Pt reported poor appetite for over 6 months. Pt stated I just dont eat as much as I used to. RN recorded 75-100% meal intake since admission. Pt with hx of cancer, no longer on chemotherapy. Pt reported 30+ lbs weight loss in the last 6 months. Pt denied any nausea or vomiting. LBM 07/04. Pt denied any chewing or swallowing difficulty. Upon NFPA, pt had moderate fat/ muscle loss. Pt usually drinks 2 Boost [address] daily[address] RD rec Ensure BID and pt was agreeable. Will continue to monitor and follow. Principal Problems/Diagnoses: CHF, PNA PMH: HTN, CHF, uterine and rectal cancer GI: abdomen flat, soft, non-tender, flatus present Skin: no pressure wound noted Labs: (07/05) Na 132 L, K 3.4 L Meds: zofran, lasix, protonix, pepcid Ht: 61in Wt: 109.13lb BMI: 20.6kg/m2 IBW: 105lb +/- 10% Malnutrition Evaluation (07/05/2019) The patient meets criteria for MODERATE protein-calorie malnutrition. Energy intake: <75% of estimated energy requirements for >3 months Weight loss: >10% in 6 months (Chronic) Fat loss: Moderate clavicle protrusion, Muscle loss: Moderate squaring of shoulder, temporal depression Supporting Evidence: Fluid accumulation: unable to evaluate Functional Status: no changes Nutrition Prescription (Diet Order): cardiac diet Estimated Nutritional Needs: Calories: 1250 1500kcal(25-30kcal/kg/d) Weight used: CBW Protein: 50 75g protein (1-1.5g/kg/d) Weight used: CBW Diet Adequacy: Not meeting calorie needs, Not meeting protein needs Diet Education Needs Assessment: Diet education not indicated. Not appropriate due to age and hx of significant weight loss. Nutrition Care Level: mod Nutrition Diagnosis: Moderate malnutrition related to chronic illnesses (cancer, CHF) as evidenced by weight loss, muscle/fat loss, and inadequate energy intake. Goal: Patient will meet 75-100% of estimated needs by follow up Progress: Progressing Interventions: Modified diet, Commercial beverage Monitoring/Evaluation: Total energy intake, Total protein intake, Modified diet, Liquid supplement, Weight change Signed: Kirsten Bain MS, RD, LD
[2019-07-05] MEDS ORDERED: SODIUM CHLORIDE 0.9% 250ML 250 ML ONE (18:26)
[2019-07-05] MEDS: CEFTRIAXONE SOD 1 GM/NS 50 ML 50 ML IV SCH (18:30)
[2019-07-05] MEDS: AZITHROMYCIN 500MG/NS 250 ML 250 ML IV SCH (19:04)
[2019-07-05] MEDS: ATORVASTATIN 20 MG TAB PO SCH (20:12)
--- NOTE | 2019-07-05 20:23 | NUR ---
PATIENT'S AC IV INFILTRATED AND PATIENT COMPLAINING OF PAIN AT SITE, REMOVED IV AND RESTARTED A NEW ONE. WILL CONTINUE TO MONITOR.
[2019-07-06] VITALS (8 sets, daily range): BP systolic 101–119; BP diastolic 59–76
--- NOTE | 2019-07-06 05:12 | NUR ---
PATIENT CALLED NURSE TO ROOM STATING THAT SHE NEEDED TO PEE, PATIENT HAS BANKS IN PLACE FROM HOME AND BANKS WAS NOTED TO HAVE BLOOD IN THE TUBING. NURSE WAS UNABLE TO GET FLOW RESTORED DUE TO CLOTS STUCK THROUGHOUT THE CATHETER TUBING. REMOVED BANKS AND FOLLOWED STERILE PROTOCOL TO INSERT A NEW CATHETER. FLOW RESTORED AND PATIENT NOTED TO HAVE RED TINGED URINE AND CLOTS EXITING THE BLADDER INTO COLLECTION CONTAINER. PATIENT STATES RELIEF ACHIEVED AND THAT THIS IS COMMON FOR HER. CALLED DR. BRIONES TO NOTIFY UROLOGY OF PATIENT CONDITION. WILL CONTINUE TO MONITOR.
[2019-07-06 06:54] LABS: BASOPHILS % 0.2 % (0.0-1.0); EOSINOPHILS # (AUTO) 0.1 (0.0-0.4); EOSINOPHILS % 2.5 % (0.0-6.0); HEMOGLOBIN 7.1 g/dL (12.0-16.0); LYMPHOCYTES # (AUTO) 1.1 (1.0-3.2); LYMPHOCYTES % 26.7 % (18.0-39.1); MEAN CORPUSCULAR HEMOGLOBIN 30.1 pg (28-32); MEAN CORPUSCULAR HGB CONC 32.3 g/dL (31-35); MEAN CORPUSCULAR VOLUME 93.2 fL (81-99); MONOCYTES # (AUTO) 0.4 (0.2-0.8); MONOCYTES % 10.5 % (4.4-11.3); NEUTROPHILS # (AUTO) 2.4 (2.1-6.9); NEUTROPHILS % 59.9 % (38.7-80.0); PLATELET COUNT 292 x10e3/uL (140-360); RED BLOOD COUNT 2.36 x10e6/uL (3.6-5.1)
[2019-07-06 07:13] LABS: ANION GAP 7.3 mmol/L (8-16); CALCIUM 9.3 mg/dL (8.4-10.2); CREATININE, SERUM 1.05 mg/dL (0.57-1.11); POTASSIUM 3.3 mmol/L (3.5-5.1)
[2019-07-06] MEDS: LOSARTAN POTASSIUM 100 MG TAB PO SCH (09:00)
[2019-07-06] MEDS: AMLODIPINE BESYLATE 5 MG TAB PO SCH (09:00)
[2019-07-06] MEDS: FUROSEMIDE INJ 10 MG/ML 2 ML VIAL IV SCH (09:24)
[2019-07-06] MEDS: FAMOTIDINE 20 MG/2 ML VIAL IV SCH ×2 (09:24→20:24)
[2019-07-06] MEDS: PANTOPRAZOLE SOD 40 MG TABEC PO SCH (09:24)
[2019-07-06] MEDS ORDERED: BISACODYL 5 MG TAB EC PO ONE (09:30)
[2019-07-06] MEDS ORDERED: POTASSIUM CHLORIDE 20 MEQ TAB CR PO ONE (09:30)
--- NOTE | 2019-07-06 10:30 | NUR ---
pt alert resp even and unlabored at this time no distress noted pt able to make needs known, pt has maria to gravity , pt oriented to room and call light .
[2019-07-06] MEDS: HYDROCODONE/APAP 10MG-325MG TAB PO PRN ×3 (12:05→22:14)
[2019-07-06 12:17] LABS: HEMATOCRIT 25.8 % (34.2-44.1); HEMOGLOBIN 8.4 g/dL (12.0-16.0)
[2019-07-06] MEDS ORDERED: SODIUM CHLORIDE 0.9% 250ML 250 ML ONE (17:19)
[2019-07-06] MEDS: AZITHROMYCIN 500MG/NS 250 ML 250 ML IV SCH (18:19)
[2019-07-06] MEDS: CEFTRIAXONE SOD 1 GM/NS 50 ML 50 ML IV SCH (18:19)
--- NOTE | 2019-07-06 18:45 | NUR ---
Received bedside report from day shift RN. The patient is sitting up on the bed, not in distress. Call light within reach, bed height low, side rails up x2. The patient requested to have a new IV since the right wrist IV is leaking. Day shift RN will attempt to put in new IV
--- NOTE | 2019-07-06 19:39 | NUR ---
report given to oncoming nurse for continued care, pt stable.
[2019-07-06] MEDS: ATORVASTATIN 20 MG TAB PO SCH (20:24)
--- NOTE | 2019-07-06 21:00 | NUR ---
Right wrist IV removed due to leakage and mild burning during antibiotic administration. RN removed catheter while intact. Gauze and paper tape placed over the site. Patient tolerated well.
[2019-07-06] MEDS: ZOLPIDEM TARTRATE 10 MG TAB PO PRN (22:14)
[2019-07-07] VITALS (9 sets, daily range): BP systolic 84–132; BP diastolic 55–82
[2019-07-07] MEDS: HYDROCODONE/APAP 10MG-325MG TAB PO PRN ×4 (05:23→21:45)
[2019-07-07 05:25] LABS: BASOPHILS % 0.4 % (0.0-1.0); EOSINOPHILS # (AUTO) 0.1 (0.0-0.4); EOSINOPHILS % 2.3 % (0.0-6.0); HEMATOCRIT 23.3 % (34.2-44.1); HEMOGLOBIN 7.4 g/dL (12.0-16.0); LYMPHOCYTES # (AUTO) 1.6 (1.0-3.2); LYMPHOCYTES % 34.9 % (18.0-39.1); MEAN CORPUSCULAR HEMOGLOBIN 29.5 pg (28-32); MEAN CORPUSCULAR HGB CONC 31.8 g/dL (31-35); MEAN CORPUSCULAR VOLUME 92.8 fL (81-99); MONOCYTES # (AUTO) 0.5 (0.2-0.8); MONOCYTES % 10.2 % (4.4-11.3); NEUTROPHILS # (AUTO) 2.4 (2.1-6.9); PLATELET COUNT 329 x10e3/uL (140-360); RED BLOOD COUNT 2.51 x10e6/uL (3.6-5.1); RED CELL DISTRIBUTION WIDTH 14.8 % (11.7-14.4)
[2019-07-07 05:49] LABS: ALBUMIN/GLOBULIN RATIO 0.6 (0.8-2.0); ANION GAP 9.9 mmol/L (8-16); CALCIUM 9.4 mg/dL (8.4-10.2); CREATININE, SERUM 1.03 mg/dL (0.57-1.11); MAGNESIUM 1.7 MG/DL (1.3-2.1); POTASSIUM 3.9 mmol/L (3.5-5.1)
[2019-07-07] MEDS: FAMOTIDINE 20 MG/2 ML VIAL IV SCH ×2 (08:32→20:00)
[2019-07-07] MEDS: DOCUSATE SODIUM 100 MG CAP PO SCH (08:32)
[2019-07-07] MEDS: FUROSEMIDE INJ 10 MG/ML 2 ML VIAL IV SCH (08:32)
[2019-07-07] MEDS: PANTOPRAZOLE SOD 40 MG TABEC PO SCH (08:33)
[2019-07-07] MEDS: AMLODIPINE BESYLATE 5 MG TAB PO SCH (08:33)
[2019-07-07] MEDS: LOSARTAN POTASSIUM 100 MG TAB PO SCH (08:33)
--- NOTE | 2019-07-07 11:23 | NUR ---
EDUCATED ABOUT IMM SIGNED FILED IN CHART AND LEFT COPY WITH PT BEDSIDE WITH CARD FOR ANY FURTHER QUESTIONS
--- NOTE | 2019-07-07 12:34 | Consultation ---
DATE OF CONSULTATION: REASON FOR CONSULTATION: Sepsis, pneumonia, UTI. HISTORY OF PRESENT ILLNESS: This patient, who is very pleasant 84-year-old white female, comes in with fever and chills and cough. She said she have feeling like she had this thick sputum, which she cannot clear. The patient comes in the hospital and she states she is just feeling bad. The patient, who does have history of uterine cancer. She had a Port-A-Cath. She said she is not on chemo anymore, but she did get chemo and surgery. The patient had cholecystectomy, appendectomy, colostomy, and oophorectomy. The patient is currently lying in bed, comfortable, but short of breath. When she first came, urine cultures was sent. She had VRE as well as MRSA in the urine. The blood cultures are negative. Her white count is 4.2, hemoglobin 7.2, and her platelet of 336. Her sodium 132, potassium 3.4, creatinine 0.86, and albumin 1.7. The patient had a chest x-ray, which showed volume overload. The patient is currently lying in bed, comfortable, but a little bit short of breath. The patient had no fever since admission. PAST MEDICAL HISTORY: As above. PAST SURGICAL HISTORY: As above. ALLERGIES: IODINE. SOCIAL HISTORY: She denies smoking, drug abuse, or alcohol abuse. Her does smoke. REVIEW OF SYSTEMS: HEENT: There is no headache or visual changes. : There is no urgency or frequency. She has a Phillips. GI: There is no nausea or vomiting. PULMONARY: There is shortness of breath. The patient's review of systems is otherwise unremarkable. PHYSICAL EXAMINATION: GENERAL: She is currently alert and oriented. Does not seem to be in acute distress. VITAL SIGNS: Stable. Currently afebrile. HEENT: She is not icteric. NECK: Supple. CHEST: Few rhonchi bilateral. COR: S1 and S2. No S3, S4, or murmur. ABDOMEN: Soft. Bowel sounds present. No tenderness. EXTREMITIES: No edema. SKIN: There is no rash. IMPRESSION: 1. Shortness of breath and thick cough. Chest x-ray is negative, may be bronchitis. 2. Urinary tract infection/bacteriuria. The patient is colonized with vancomycin-resistant Enterococcus and methicillin-resistant Staphylococcus aureus. 3. History of uterine cancer, history of colostomy. I have suggested to discontinue Rocephin, discontinue azithromycin, and add Zyvox. I am going to get the abdomen CAT scan to assess any obstruction. The patient has history of cancer. Reassess in the morning. We will follow with you. Other medical problem as above. MD TAMMY Butler/SAMSON /[id number]
[2019-07-07] MEDS: LINEZOLID 600 MG/D5W 300ML 300 ML IV SCH ×2 (13:20→23:10)
--- NOTE | 2019-07-07 14:42 | NUR ---
aware Hgb 8.4 yesterday and 7.4 today. See orders
--- NOTE | 2019-07-07 17:29 | Diagnostic Imaging Report ---
CT of the abdomen and pelvis, without contrast, 07/07/2019. History: CHF, pneumonia. Comparison: 12/21/2018. Technique: Multidetector CT scanning of the abdomen and pelvis was performed from the level of the lung bases to the inferior pubic rami without intravenous or oral contrast. Coronal and sagittal multiplanar reformations were obtained. RADIATION DOSE: Total DLP: 168 mGy*cm Dose modulation, iterative reconstruction, and/or weight based adjustment of the mA/kV was utilized to reduce the radiation dose to as low as reasonably achievable. Discussion: Examination is limited without contrast. Lung bases: The heart is enlarged. Small pericardial effusion is present. Large hiatal hernia is noted. Moderate bilateral perfusions are present, left greater than right, with adjacent bilateral lower lobe atelectasis. Abdomen: There is moderate bilateral hydronephrosis and hydroureter down to the bladder. There is no evidence of renal calculus or perinephric fat stranding. Cholecystectomy clips are present. The liver, biliary tree, spleen, pancreas, and adrenal glands are unremarkable. The abdominal aorta is calcified but within normal limits for size. There is no bowel dilatation. Left lower quadrant ostomy is again noted. Distal rectal wall thickening is unchanged. There is no evidence of adenopathy or free fluid. There is mild anasarca diffusely. Pelvis: The bladder contains a Phillips catheter and is nondistended. There appears to be thickening of the posterior bladder wall. Uterus is small and not well visualized. Calcified phleboliths are present bilaterally. There is no evidence of free fluid or adenopathy. Bones and soft tissues: Advanced degenerative changes are present throughout the lumbar spine. Old right inferior and superior pubic rami fractures are again noted. IMPRESSION: 1. Interval increase in moderate bilateral hydronephrosis. 2. Interval placement of Phillips catheter. Bladder is decompressed with apparent posterior wall thickening. Consider cystoscopy. 3. Moderate bilateral pleural effusions, left greater than right. Otherwise no significant change in this limited noncontrast exam. Signed by: Ant Narayan on 07/07/2019 5:26 PM
--- NOTE | 2019-07-07 19:10 | NUR ---
Report given to oncoming nurse of patient's status. Resting in bed. No s/s of acute distress noted. Side rails upx2, call light within reach. at bedside
[2019-07-07] MEDS: ONDANSETRON HCL INJ 2MG/ML 2ML 2 MG/ML VIAL IV PRN ×2 (20:00→23:51)
[2019-07-07] MEDS: ATORVASTATIN 20 MG TAB PO SCH (20:00)
--- NOTE | 2019-07-07 20:00 | NUR ---
PATIENT IS AOX3, NO SIGNS OF DISTRESS NOTED. PATIENT COMPLAINED OF NAUSEA AND WAS MEDICATED ORDERED. PATIENT IS RELAXING IN RECLINER, FAMILY MEMBER AT BEDSIDE. CALL LIGHT IS WITHIN EASY REACH, WILL CONTINUE TO MONITOR.
--- NOTE | 2019-07-07 22:00 | NUR ---
PATIENT HAD RECTAL BLEEDING A RESULT OF HER RECTAL CANCER AND BANKS STARTING TO SHOW A TINGE OF PINK. DIAPER WAS CHANGED AND PATIENT CLEANED THOROUGHLY, SHE WAS ALSO PLACED IN BED FROM RECLINER AND RESTING COMFORTABLY. FAMILY MEMBER AT BEDSIDE, CALL LIGHT WITHIN REACH, WILL CONTINUE TO MONITOR.
[2019-07-07] MEDS: ZOLPIDEM TARTRATE 10 MG TAB PO PRN (23:11)
[2019-07-08] VITALS (7 sets, daily range): BP systolic 108–129; BP diastolic 66–81
[2019-07-08 05:27] LABS: BASOPHILS % 0.4 % (0.0-1.0); EOSINOPHILS # (AUTO) 0.2 (0.0-0.4); EOSINOPHILS % 3.3 % (0.0-6.0); LYMPHOCYTES # (AUTO) 1.3 (1.0-3.2); LYMPHOCYTES % 28.4 % (18.0-39.1); MEAN CORPUSCULAR HEMOGLOBIN 29.9 pg (28-32); MEAN CORPUSCULAR HGB CONC 32.6 g/dL (31-35); MEAN CORPUSCULAR VOLUME 91.9 fL (81-99); MONOCYTES # (AUTO) 0.5 (0.2-0.8); MONOCYTES % 10.2 % (4.4-11.3); NEUTROPHILS # (AUTO) 2.7 (2.1-6.9); NEUTROPHILS % 57.5 % (38.7-80.0); PLATELET COUNT 309 x10e3/uL (140-360); RED BLOOD COUNT 2.34 x10e6/uL (3.6-5.1); RED CELL DISTRIBUTION WIDTH 14.2 % (11.7-14.4)
[2019-07-08 05:37] LABS: HEMATOCRIT 21.5 % (34.2-44.1)
[2019-07-08] MEDS ORDERED: SODIUM CHLORIDE 0.9% 250ML 250 ML IV ONE (05:45)
[2019-07-08 05:48] LABS: ALBUMIN/GLOBULIN RATIO 0.6 (0.8-2.0); ALKALINE PHOSPHATASE 91 IU/L (40-150); ANION GAP 8.4 mmol/L (8-16); BLOOD UREA NITROGEN 11 mg/dL (7-26); BUN/CREATININE RATIO 12 (6-25); CALCIUM 9.2 mg/dL (8.4-10.2); CARBON DIOXIDE 32 mmol/L (22-29); CHLORIDE 90 mmol/L (98-107); CREATININE, SERUM 0.95 mg/dL (0.57-1.11); EST GLOMERULAR FILTRATION RATE 56 ML/MIN (60-); GLUCOSE 74 mg/dL (74-118); POTASSIUM 3.4 mmol/L (3.5-5.1); SODIUM 127 mmol/L (136-145)
[2019-07-08 05:50] LABS: ALANINE AMINOTRANSFERASE < 6 IU/L (0-55)
--- NOTE | 2019-07-08 06:00 | NUR ---
LAB CALLED WITH A CRITICAL VALUE OF 7.0 HGB AND [address] MUÑOZ TO INFORM HIM, AND HE ORDERED 1 UNIT OF BLOOD FOR THE PATIENT. WILL CONTINUE TO MONITOR THE SITUATION.
--- NOTE | 2019-07-08 06:31 | NUR ---
PAGEAntony HERNANDEZ WITH A CONSULT FOR THE PATIENT FOR PLEURAL EFFUSION.
[2019-07-08] MEDS: FAMOTIDINE 20 MG/2 ML VIAL IV SCH ×2 (08:51→21:30)
[2019-07-08] MEDS: PANTOPRAZOLE SOD 40 MG TABEC PO SCH (08:51)
[2019-07-08] MEDS: AMLODIPINE BESYLATE 5 MG TAB PO SCH (08:51)
[2019-07-08] MEDS: DOCUSATE SODIUM 100 MG CAP PO SCH (08:51)
[2019-07-08] MEDS: FUROSEMIDE INJ 10 MG/ML 2 ML VIAL IV SCH (08:51)
[2019-07-08] MEDS: LOSARTAN POTASSIUM 100 MG TAB PO SCH (08:51)
[2019-07-08 09:35] LABS: % IRON SATURATION 17 % (15-50); IRON 29 ug/dL (50-170); TOTAL IRON BINDING CAPACITY 171 ug/dL (261-478); TRANSFERRIN 122 mg/dL (180-382)
[2019-07-08] MEDS: ALBUTEROL SULF 0.083% NEB SOLN 3 ML NEB NEB SCH ×3 (09:45→21:00)
[2019-07-08] MEDS: POLYETHYLENE GLYCOL 3350 17 GM PACK PO SCH ×2 (10:01→17:24)
[2019-07-08] MEDS: HYDROCODONE/APAP 10MG-325MG TAB PO PRN ×3 (10:09→21:40)
[2019-07-08] MEDS ORDERED: SODIUM CHLORIDE 0.9% 250ML 250 ML ONE (12:10)
--- NOTE | 2019-07-08 12:35 | NUR ---
Blood started @12.20, no adverse reaction noted in 15 min, no distress noted, keep monitoring.
--- NOTE | 2019-07-08 13:05 | Consultation ---
DATE OF CONSULTATION: Pulmonary Consultation Note HISTORY OF PRESENT ILLNESS: Patient of Dr. Arenas and Dr. 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 History of neurogenic bladder with urinary retention, chronic Phillips drainage for 6 months. 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 The patient has no history of heart disease, though she has aortic stenosis and low ejection fraction of 25%. She has had persistent rectal bleeding, uterine bleeding, weight loss. ALLERGIES: IODINE AND MORPHINE. PAST MEDICAL HISTORY: History of hypertension, hyperlipidemia, chronic pain. HOME MEDICATIONS: Have included amlodipine, Lipitor, Vicodin, losartan, Protonix, and zolpidem. SOCIAL HISTORY: Born in [place], [place]. Worked as home health nurse. PAST SURGICAL HISTORY: She has had appendectomy, breast biopsy, gallbladder surgery, colostomy. PHYSICAL EXAMINATION: GENERAL: A well-developed, white female, looking her stated age. VITAL SIGNS: Temperature 97.1, pulse 105, respirations 20, and blood pressure 129/70. HEAD: Normocephalic, atraumatic. LUNGS: Diminished breath sounds, both bases. HEART: Systolic ejection murmur. ABDOMEN: Colostomy, left lower quadrant. EXTREMITIES: Nonedematous. Phillips catheter. 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 PLAN: Diagnostic and therapeutic thoracentesis, therapy of heart failure, palliative care. The patient has apparently declined further chemotherapy. She does have a Port-A-Cath, however, we will attempt to call the patient's oncologist for further details. Thank you for this kind referral. MD ODILON Fenton/LEEANNL /[id number]
--- NOTE | 2019-07-08 14:42 | NUR ---
one unit of blood finished, no adverse reaction noted, patient up in bed, call light in reach
--- NOTE | 2019-07-08 14:56 | NUR ---
Patient off the unit for Thoracentesis, stable
[2019-07-08] MEDS: LINEZOLID 600 MG/D5W 300ML 300 ML IV SCH ×2 (15:54→23:20)
[2019-07-08 16:07] LABS: BODY FLUID APPEARANCE CLOUDY; BODY FLUID COLOR YELLOW; BODY FLUID TYPE PLEURAL
[2019-07-08] MEDS: ERTAPENEM 1GM/NS 100ML 100 ML IV SCH (16:10)
[2019-07-08 16:20] LABS: RBC,BODY FLUID 175 cells/uL; WBC,BODY FLUID 152 cells/uL
--- NOTE | 2019-07-08 16:57 | Diagnostic Imaging Report ---
Exam: Chest one view Comparison: July 05, 2019 Clinical history: Pleural effusion Findings: Bilateral pleural effusions are noted, right greater than left. There is no evidence of pneumothorax. The cardiac size is mildly prominent. The left subclavian chest port appears unchanged in position. The regional osseous structures are unremarkable. Signed by: Dr. Mart Carrlol MD on 07/08/2019 4:53 PM
[2019-07-08 17:16] LABS: LYMPHOCYTES,BODY FLUID 49 %; MONO/MACROPHG,BODY FLUID 9 %; NEUTROPHILS,BODY FLUID 12 %; OTHER CELLS,BODY FLUID 30 %
--- NOTE | 2019-07-08 17:49 | Diagnostic Imaging Report ---
Exam: Thoracentesis Clinical history: Pleural effusion Findings: The patient was in upright position. Under ultrasound guidance, a 5 Indonesian multi-sidehole catheter was inserted into the left pleural space. Approximately 1 L of clear yellow fluid was aspirated. It was sent to the laboratory for further analysis. Hemostasis was achieved. A stat chest x-ray was ordered. The patient tolerated the procedure well without any adverse reactions. She returned to the floor in stable condition. Complication: None immediate Impression: 1. Ultrasound-guided left thoracentesis as described. Signed by: Dr. Mart Carroll MD on 07/08/2019 5:45 PM
--- NOTE | 2019-07-08 18:18 | NUR ---
Nutrition Follow-up Note RD Recommendation(s) for Physician: - Continue diet as ordered - Continue Ensure Enlive BID to increase protein-calorie intake - The patient meets criteria for MODERATE protein-calorie malnutrition. Plan of Care: RD following, monitoring for tolerance and adequacy, ONS rec Nutrition reason for involvement: Follow up RD Assessment (07/08) Visited pt in the room. Per , pt has had fair appetite. PCT recorded 75-100% meal intake. Pt drank some of the Ensure ordered. No GI complains reported. Discussed menu options with . Will continue to monitor and follow. (07/05) 84yo F, who was admitted for CHF. CXR showed volume overload. Visited pt in the room. Pt reported poor appetite for over 6 months. Pt stated I just dont eat as much as I used to. RN recorded 75-100% meal intake since admission. Pt with hx of cancer, no longer on chemotherapy. Pt reported 30+ lbs weight loss in the last 6 months. Pt denied any nausea or vomiting. LBM 07/04. Pt denied any chewing or swallowing difficulty. Upon NFPA, pt had moderate fat/ muscle loss. Pt usually drinks 2 Boost at [address] daily[address] RD rec Ensure BID and pt was agreeable. Will continue to monitor and follow. Principal Problems/Diagnoses: CHF, PNA PMH: HTN, CHF, uterine and rectal cancer GI: abdomen flat, soft, non-tender, flatus present Skin: no pressure wound noted Labs: (07/08) Na 127 L, K 3.4 L, Iron 29 L, TIBC 171 L, transferrin 122 L (07/05) Na 132 L, K 3.4 L Meds: miralax, colace, lasix, protonix, pepcid Ht: 61in Wt: 109.13lb; 112lb BMI: 20.6kg/m2 IBW: 105lb +/- 10% Malnutrition Evaluation (07/05/2019) The patient meets criteria for MODERATE protein-calorie malnutrition. Energy intake: <75% of estimated energy requirements for >3 months Weight loss: >10% in 6 months (Chronic) Fat loss: Moderate clavicle protrusion, Muscle loss: Moderate squaring of shoulder, temporal depression Supporting Evidence: Fluid accumulation: unable to evaluate Functional Status: no changes Nutrition Prescription (Diet Order): cardiac diet Estimated Nutritional Needs: Calories: 1250 1500kcal (25-30kcal/kg/d) Weight used: CBW Protein: 50 75g protein (1-1.5g/kg/d) Weight used: CBW Diet Adequacy: meeting calorie needs, meeting protein needs Diet Education Needs Assessment: Diet education not indicated. Not appropriate due to age and hx of significant weight loss. Nutrition Care Level: mod Nutrition Diagnosis: Moderate malnutrition related to chronic illnesses (cancer, CHF) as evidenced by weight loss, muscle/fat loss, and inadequate energy intake. Goal: Patient will meet 75-100% of estimated needs by follow up Progress: Progressing Interventions: Modified diet, Commercial beverage Monitoring/Evaluation: Total energy intake, Total protein intake, Modified diet, Liquid supplement, Weight change Signed: Kirsten Bain MS, RD, LD
[2019-07-08] MEDS: ATORVASTATIN 20 MG TAB PO SCH (20:30)
[2019-07-08] MEDS: ONDANSETRON HCL INJ 2MG/ML 2ML 2 MG/ML VIAL IV PRN (21:30)
--- NOTE | 2019-07-08 21:30 | NUR ---
PATIENTS IV WAS CLOGGED AND HAD RESISTANCE, IV NOW REPLACED IN RIGHT FOREARM 22 GAUGE. IT IS PATENT AND FLOWING.
[2019-07-08] MEDS: ZOLPIDEM TARTRATE 10 MG TAB PO PRN (23:20)
[2019-07-09] VITALS (8 sets, daily range): BP systolic 95–119; BP diastolic 59–74
--- NOTE | 2019-07-09 02:03 | NUR ---
PATIENT RESTING COMFORTABLY, NO RESPIRATORY DISTRESS NOTED. NO COMPLAINTS OF PAIN AT THIS TIME, AND PATIENT JUST FINISHING ANTIBIOTIC. BED IS LOCKED AND IN LOWEST POSITION, BOTH SIDE RAILS ARE UP, CALL LIGHT WITHIN REACH, WILL CONTINUE TO MONITOR.
[2019-07-09 05:51] LABS: BASOPHILS % 0.3 % (0.0-1.0); EOSINOPHILS # (AUTO) 0.2 (0.0-0.4); EOSINOPHILS % 2.7 % (0.0-6.0); HEMATOCRIT 25.7 % (34.2-44.1); HEMOGLOBIN 8.6 g/dL (12.0-16.0); LYMPHOCYTES # (AUTO) 1.3 (1.0-3.2); LYMPHOCYTES % 21.4 % (18.0-39.1); MEAN CORPUSCULAR HEMOGLOBIN 29.7 pg (28-32); MEAN CORPUSCULAR HGB CONC 33.5 g/dL (31-35); MEAN CORPUSCULAR VOLUME 88.6 fL (81-99); MONOCYTES # (AUTO) 0.6 (0.2-0.8); MONOCYTES % 9.6 % (4.4-11.3); NEUTROPHILS # (AUTO) 3.8 (2.1-6.9); NEUTROPHILS % 65.7 % (38.7-80.0); PLATELET COUNT 288 x10e3/uL (140-360); RED CELL DISTRIBUTION WIDTH 14.5 % (11.7-14.4)
[2019-07-09 06:04] LABS: ALBUMIN/GLOBULIN RATIO 0.6 (0.8-2.0); ALKALINE PHOSPHATASE 93 IU/L (40-150); ANION GAP 11.3 mmol/L (8-16); BLOOD UREA NITROGEN 11 mg/dL (7-26); BUN/CREATININE RATIO 12 (6-25); CARBON DIOXIDE 30 mmol/L (22-29); CHLORIDE 92 mmol/L (98-107); CREATININE, SERUM 0.91 mg/dL (0.57-1.11); EST GLOMERULAR FILTRATION RATE 59 ML/MIN (60-); GLUCOSE 77 mg/dL (74-118); POTASSIUM 3.3 mmol/L (3.5-5.1); SODIUM 130 mmol/L (136-145)
[2019-07-09 06:05] LABS: ALANINE AMINOTRANSFERASE < 6 IU/L (0-55)
[2019-07-09] MEDS: ALBUTEROL SULF 0.083% NEB SOLN 3 ML NEB NEB SCH ×3 (06:20→21:00)
--- NOTE | 2019-07-09 07:55 | NUR ---
Patient resting in bed alert with no distress, call light in reach
[2019-07-09] MEDS: AMLODIPINE BESYLATE 5 MG TAB PO SCH (09:00)
[2019-07-09] MEDS: LOSARTAN POTASSIUM 100 MG TAB PO SCH (09:00)
--- NOTE | 2019-07-09 09:20 | NUR ---
Attempted X2 to give morning medications, patient said she will take little later, not in any distress
[2019-07-09] MEDS: FAMOTIDINE 20 MG/2 ML VIAL IV SCH ×2 (09:55→20:24)
[2019-07-09] MEDS: PANTOPRAZOLE SOD 40 MG TABEC PO SCH (09:55)
[2019-07-09] MEDS: FUROSEMIDE INJ 10 MG/ML 2 ML VIAL IV SCH (09:55)
[2019-07-09] MEDS: DOCUSATE SODIUM 100 MG CAP PO SCH (09:55)
[2019-07-09] MEDS: POLYETHYLENE GLYCOL 3350 17 GM PACK PO SCH ×2 (09:55→16:55)
[2019-07-09] MEDS: HEPARIN SOD (PORCINE) 5,000 UNIT/ML VIAL SC SCH ×2 (10:32→20:25)
[2019-07-09] MEDS ORDERED: CHLORASEPTIC SPRAY 177 ML BTL MM PRN (11:15)
[2019-07-09] MEDS: LINEZOLID 600 MG/D5W 300ML 300 ML IV SCH ×2 (11:54→23:59)
--- NOTE | 2019-07-09 12:53 | NUR ---
EDUCATED ABOUT IMM, SIGNED, FILED IN CHART, WITH COPY LEFT WITH FAMILY AT BEDSIDE.
[2019-07-09] MEDS: ERTAPENEM 1GM/NS 100ML 100 ML IV SCH (13:20)
[2019-07-09] MEDS: HYDROCODONE/APAP 10MG-325MG TAB PO PRN ×3 (14:48→20:24)
[2019-07-09] MEDS: ONDANSETRON HCL INJ 2MG/ML 2ML 2 MG/ML VIAL IV PRN (20:05)
[2019-07-09] MEDS: ATORVASTATIN 20 MG TAB PO SCH (20:23)
[2019-07-09] MEDS: ZOLPIDEM TARTRATE 10 MG TAB PO PRN (22:56)
[2019-07-09] MEDS ORDERED: SODIUM CHLORIDE 0.9% 250ML 250 ML ONE (23:57)
[2019-07-10] VITALS (8 sets, daily range): BP systolic 93–140; BP diastolic 56–66
[2019-07-10 06:36] LABS: BASOPHILS % 0.3 % (0.0-1.0); EOSINOPHILS # (AUTO) 0.2 (0.0-0.4); HEMATOCRIT 24.1 % (34.2-44.1); HEMOGLOBIN 8.1 g/dL (12.0-16.0); LYMPHOCYTES # (AUTO) 1.3 (1.0-3.2); MEAN CORPUSCULAR HGB CONC 33.6 g/dL (31-35); MEAN CORPUSCULAR VOLUME 89.3 fL (81-99); MONOCYTES # (AUTO) 0.6 (0.2-0.8); MONOCYTES % 9.7 % (4.4-11.3); NEUTROPHILS # (AUTO) 3.9 (2.1-6.9); NEUTROPHILS % 65.5 % (38.7-80.0); PLATELET COUNT 256 x10e3/uL (140-360); RED CELL DISTRIBUTION WIDTH 14.2 % (11.7-14.4)
[2019-07-10 06:53] LABS: ALBUMIN 1.8 g/dL (3.5-5.0); ALBUMIN/GLOBULIN RATIO 0.6 (0.8-2.0); ANION GAP 11.3 mmol/L (8-16); BLOOD UREA NITROGEN 10 mg/dL (7-26); BUN/CREATININE RATIO 10 (6-25); CALCIUM 8.5 mg/dL (8.4-10.2); CARBON DIOXIDE 31 mmol/L (22-29); CHLORIDE 89 mmol/L (98-107); CREATININE, SERUM 0.99 mg/dL (0.57-1.11); EST GLOMERULAR FILTRATION RATE 53 ML/MIN (60-); GLUCOSE 79 mg/dL (74-118); POTASSIUM 3.3 mmol/L (3.5-5.1); SODIUM 128 mmol/L (136-145)
[2019-07-10 06:54] LABS: ALANINE AMINOTRANSFERASE < 6 IU/L (0-55)
[2019-07-10] MEDS: ALBUTEROL SULF 0.083% NEB SOLN 3 ML NEB NEB SCH ×3 (07:05→23:00)
--- NOTE | 2019-07-10 07:08 | NUR ---
RECEIVED PATIENT RESTING IN BED NO S/S OF DISTRESS. BED LOW, WHEELS LOCKED, SIDE RAILS X2. CALL LIGHT IN REACH WILL CONTINUE TO MONITOR PATIENT.
[2019-07-10 07:23] LABS: ALKALINE PHOSPHATASE 98 IU/L (40-150)
[2019-07-10] MEDS: LOSARTAN POTASSIUM 100 MG TAB PO SCH (09:00)
[2019-07-10] MEDS: AMLODIPINE BESYLATE 5 MG TAB PO SCH (09:00)
[2019-07-10] MEDS: POLYETHYLENE GLYCOL 3350 17 GM PACK PO SCH ×2 (09:31→16:10)
[2019-07-10] MEDS: FUROSEMIDE INJ 10 MG/ML 2 ML VIAL IV SCH (09:31)
[2019-07-10] MEDS: FAMOTIDINE 20 MG/2 ML VIAL IV SCH ×2 (09:31→19:52)
[2019-07-10] MEDS: DOCUSATE SODIUM 100 MG CAP PO SCH (09:31)
[2019-07-10] MEDS: PANTOPRAZOLE SOD 40 MG TABEC PO SCH (10:02)
[2019-07-10] MEDS: HEPARIN SOD (PORCINE) 5,000 UNIT/ML VIAL SC SCH ×2 (10:02→19:56)
[2019-07-10] MEDS: HYDROCODONE/APAP 10MG-325MG TAB PO PRN ×2 (10:15→18:15)
--- NOTE | 2019-07-10 11:05 | NUR ---
PATIENT A/O X3, EVEN RESPIRATIONS ON 3LNC. LUNG SOUNDS DIMINISHED TO AUSCULTATION. BOWEL SOUNDS X4. LLQ COLOSTOMY. BANKS IN PLACE WITH CLEAR YELLOW URINE. BACK PAIN PRN 6/10 NORCO GIVEN. SKIN INTACT AND NO EDEMA. VS STABLE. CALL LIGHT IN REACH. WILL CONTINUE TO MONITOR PATIENT.
[2019-07-10] MEDS: LINEZOLID 600 MG/D5W 300ML 300 ML IV SCH (11:53)
[2019-07-10] MEDS: ERTAPENEM 1GM/NS 100ML 100 ML IV SCH (14:10)
--- NOTE | 2019-07-10 14:15 | Diagnostic Imaging Report ---
EXAMINATION: CHEST 2 VIEWS INDICATION: Pleural effusion. COMPARISON: Chest radiograph 07/08/2019. FINDINGS: TUBES and LINES: Left-sided single lumen chest port terminates at the brachycephalic confluence. LUNGS/PLEURA: Lungs are moderately inflated. There is a moderate right and small left pleural effusion. Persistent patchy bibasilar opacities. HEART AND MEDIASTINUM: The cardiomediastinal silhouette is mildly enlarged. Atherosclerotic calcifications of the aortic arch. BONES AND SOFT TISSUES: No acute osseous lesion. Soft tissues are unremarkable. UPPER ABDOMEN: No free air under the diaphragm. IMPRESSION: Small bilateral pleural effusions, right greater than left with associated patchy opacities, likely atelectasis. Signed by: Dr. Javier Aguilar MD on 07/10/2019 2:12 PM
[2019-07-10] MEDS: ONDANSETRON HCL INJ 2MG/ML 2ML 2 MG/ML VIAL IV PRN (15:08)
[2019-07-10] MEDS: ATORVASTATIN 20 MG TAB PO SCH (19:52)
--- NOTE | 2019-07-10 20:13 | NUR ---
Patient having small rectal bleeding, patients states she has rectal bleeding from the tumors and rectal cancer.
[2019-07-10] MEDS: ZOLPIDEM TARTRATE 10 MG TAB PO PRN (22:30)
[2019-07-11] VITALS (8 sets, daily range): BP systolic 107–133; BP diastolic 55–75
[2019-07-11] MEDS: LINEZOLID 600 MG/D5W 300ML 300 ML IV SCH ×3 (00:13→23:57)
--- NOTE | 2019-07-11 07:14 | NUR ---
RECEIVED PATIENT ASLEEP IN BED NO S/S OF DISTRESS. BED LOW, WHEELS LOCKED, SIDE RAILS X2. CALL LIGHT IN REACH WILL CONTINUE TO MONITOR PATIENT.
[2019-07-11] MEDS ORDERED: POTASSIUM CHLORIDE 20 MEQ TAB CR PO STA (07:28)
[2019-07-11] MEDS: ALBUTEROL SULF 0.083% NEB SOLN 3 ML NEB NEB SCH ×3 (07:30→23:00)
[2019-07-11] MEDS: LOSARTAN POTASSIUM 100 MG TAB PO SCH (08:34)
[2019-07-11] MEDS: AMLODIPINE BESYLATE 5 MG TAB PO SCH (08:34)
[2019-07-11] MEDS: POLYETHYLENE GLYCOL 3350 17 GM PACK PO SCH ×2 (09:00→16:23)
[2019-07-11] MEDS: PANTOPRAZOLE SOD 40 MG TABEC PO SCH (09:06)
[2019-07-11] MEDS: FAMOTIDINE 20 MG/2 ML VIAL IV SCH ×2 (09:06→20:44)
[2019-07-11] MEDS: DOCUSATE SODIUM 100 MG CAP PO SCH (09:06)
[2019-07-11] MEDS: FUROSEMIDE INJ 10 MG/ML 2 ML VIAL IV SCH (09:06)
[2019-07-11] MEDS: HEPARIN SOD (PORCINE) 5,000 UNIT/ML VIAL SC SCH (09:45)
--- NOTE | 2019-07-11 09:55 | NUR ---
PATIENT A/O X3, EVEN RESPIRATIONS ON 3LNC. LUNG SOUNDS DIMINISHED TO AUSCULTATION. BOWEL SOUNDS X4. LLQ COLOSTOMY. BANKS IN PLACE WITH PALE URINE. NO PAIN OR DISCOMFORT AT THIS TIME. SKIN INTACT AND NO EDEMA. VITAL SIGNS STABLE. CALL LIGHT IN REACH. WILL CONTINUE TO MONITOR PATIENT.
--- NOTE | 2019-07-11 10:14 | Progress Note ---
DATE: SUBJECTIVE: The patient has been admitted to the hospital for urinary tract infection, bacteriuria, shortness of breath, history of uterine cancer, history of carcinoma of the anus, squamous cell with recurrence, neurogenic bladder, and history of local metastasis and aortic stenosis. For now, the patient continues with some cough and also generalized debility. She complains of weakness and not wanting to eat. The patient has a chronic Phillips catheter in her too. OBJECTIVE: VITAL SIGNS: Temperature is 97.9, pulse of 103, respirations of 16, blood pressure is 133/55, pulse oximetry of 97%. HEENT: Normocephalic, atraumatic. The patient looks cachectic and weak. CVS: S1, S2 normal. Regular rate and rhythm. ABDOMEN: Nontender, nondistended, scaphoid. Phillips catheter. EXTREMITIES: No clubbing, no cyanosis, no edema. LABORATORY VALUES: From today, hemoglobin is 8.1, hematocrit of 24.1, trending up from 7.4 and 23.3. Chemistry shows sodium 128, potassium is 3.3, BUN is 11.3, and creatinine of 0.99. GFR of 53. Urine positive and microbiology. The patient's urine Phillips shows Proteus mirabilis and enterococcus and Staphylococcus aureus sensitive to Invanz and Zyvox. ASSESSMENT: 1. Urinary retention. 2. Urinary tract infection. 3. History of renal cancer. 4. Anemia. 5. Hypercalcemia. PLAN: 1. Plan is to continue Invanz and Zyvox. The patient has been followed by Dr. Rodriguez. Continue to monitor CBCs for elevation of white count. 2. Anemia. Continue to monitor hemoglobin, hematocrit. We will check CBC tomorrow. 3. For generalized debility, the patient can benefit with nutritional consult. We will continue to monitor the patient. Further recommendation per clinical course and labs will be followed through. MD LOTUS Lainez/LEEANNL /[id number]
[2019-07-11] MEDS: ERTAPENEM 1GM/NS 100ML 100 ML IV SCH (14:04)
[2019-07-11] MEDS: HYDROCODONE/APAP 10MG-325MG TAB PO PRN (18:37)
--- NOTE | 2019-07-11 19:30 | NUR ---
Patients voiced concern about patient being confused earlier in day. He states it only lasted for a few minutes and he was able to reorientate patient.
[2019-07-11] MEDS: ATORVASTATIN 20 MG TAB PO SCH (20:44)
[2019-07-11] MEDS: ZOLPIDEM TARTRATE 10 MG TAB PO PRN (22:04)
[2019-07-12] VITALS (9 sets, daily range): BP systolic 101–126; BP diastolic 60–68
--- NOTE | 2019-07-12 04:28 | Progress Note ---
DATE: SUBJECTIVE: The patient did well overnight. No new complaints. Her shortness of breath has overall improved, but she has pleural effusions again. OBJECTIVE: VITAL SIGNS: Stable. She is afebrile. GENERAL: No apparent distress, lying in bed. LUNGS: Decreased breath sounds bilaterally. NECK: Supple. CARDIOVASCULAR: Regular rate and rhythm. EXTREMITIES: No clubbing or cyanosis. NEUROLOGIC: No change. ASSESSMENT AND PLAN: 1. Urinary tract infection, secondary to multidrug resistant organism. Continue with care per Infectious Disease. 2. Pleural effusion. We will have another thoracentesis today. 3. Anemia. Check CBC. 4. Hypokalemia. Check CMP. 5. Hypertension. Continue with current care. 6. Gastroesophageal reflux disease. Continue with her current medications. 7. Hyperlipidemia. Continue with her medications. 8. History of anal cancer. Continue to monitor since the patient does not want to have any further intervention testing or surgeries or treatment done. 9. Moderate protein malnutrition. Encouraged the patient to have increased p.o. intake. Please see hospital chart for full details. MD DANN Vila/SAMSON /[id number]
[2019-07-12 05:28] LABS: BASOPHILS % 0.2 % (0.0-1.0); EOSINOPHILS # (AUTO) 0.1 (0.0-0.4); EOSINOPHILS % 1.2 % (0.0-6.0); HEMATOCRIT 26.5 % (34.2-44.1); LYMPHOCYTES # (AUTO) 1.3 (1.0-3.2); LYMPHOCYTES % 25.2 % (18.0-39.1); MEAN CORPUSCULAR VOLUME 88.3 fL (81-99); MONOCYTES # (AUTO) 0.4 (0.2-0.8); MONOCYTES % 7.9 % (4.4-11.3); NEUTROPHILS # (AUTO) 3.3 (2.1-6.9); NEUTROPHILS % 65.3 % (38.7-80.0); PLATELET COUNT 288 x10e3/uL (140-360); RED CELL DISTRIBUTION WIDTH 13.4 % (11.7-14.4)
[2019-07-12 05:57] LABS: ALBUMIN/GLOBULIN RATIO 0.6 (0.8-2.0); ANION GAP 12.3 mmol/L (8-16); CALCIUM 8.9 mg/dL (8.4-10.2); CREATININE, SERUM 0.98 mg/dL (0.57-1.11); MAGNESIUM 1.6 MG/DL (1.3-2.1); POTASSIUM 3.3 mmol/L (3.5-5.1)
[2019-07-12] MEDS: ALBUTEROL SULF 0.083% NEB SOLN 3 ML NEB NEB SCH ×3 (06:30→22:50)
[2019-07-12] MEDS: AMLODIPINE BESYLATE 5 MG TAB PO SCH (09:00)
[2019-07-12] MEDS: DOCUSATE SODIUM 100 MG CAP PO SCH (09:00)
[2019-07-12] MEDS: POLYETHYLENE GLYCOL 3350 17 GM PACK PO SCH ×2 (09:00→17:16)
[2019-07-12] MEDS: LOSARTAN POTASSIUM 100 MG TAB PO SCH (09:00)
[2019-07-12] MEDS: PANTOPRAZOLE SOD 40 MG TABEC PO SCH (09:00)
--- NOTE | 2019-07-12 09:43 | NUR ---
EDUCATED ABOUT IMM, SIGNED, FILED IN CHART, WITH COPY LEFT WITH FAMILY AT BEDSIDE.
[2019-07-12] MEDS: FUROSEMIDE INJ 10 MG/ML 2 ML VIAL IV SCH (10:55)
[2019-07-12] MEDS: FAMOTIDINE 20 MG/2 ML VIAL IV SCH ×2 (10:55→21:00)
[2019-07-12] MEDS: LINEZOLID 600 MG/D5W 300ML 300 ML IV SCH ×2 (12:21→23:55)
[2019-07-12] MEDS: ERTAPENEM 1GM/NS 100ML 100 ML IV SCH (13:00)
--- NOTE | 2019-07-12 15:26 | Diagnostic Imaging Report ---
Exam: Ultrasound guided thoracentesis Clinical History: Pleural effusion Consent: Benefits and risks were explained to the patient who gave consent to the procedure. Complication: None immediate Procedure: The patient was placed in uprightposition. The right posterior chest was prepped and draped in usual sterile fashion. 1% lidocaine was used as local anesthetic. Under ultrasound guidance, a thoracentesis catheter was inserted into the pleural cavity. Approximately 1200 cc of clear yellow fluid was aspirated. The catheter was removed. The specimen was sent to the laboratory for further analysis. The patient tolerated the procedure well without any adverse reaction. A STAT chest x-ray was ordered. The patient left the department in stable condition. Impression: Ultrasound guided right thoracentesis. Signed by: Dr. Mart Carroll MD on 07/12/2019 3:23 PM
--- NOTE | 2019-07-12 16:22 | Diagnostic Imaging Report ---
Exam: Chest one view Clinical history: Status post thoracentesis Findings: There is interval improvement in right pleural effusion. There is no evidence of pneumothorax. Persistent cardiomegaly and bilateral pulmonary edema are again noted. The left subclavian chest port appears unchanged in position. The regional osseous structures are stable in appearance. Signed by: Dr. Mart Carroll MD on 07/12/2019 4:18 PM
--- NOTE | 2019-07-12 16:39 | NUR ---
CM asked Dr. Arenas what was dc plan for pt. He states "home soon."
[2019-07-12] MEDS: HYDROCODONE/APAP 10MG-325MG TAB PO PRN (19:23)
--- NOTE | 2019-07-12 19:32 | NUR ---
Patient received lying in bed. AAO x 3. at bedside. Patient had no complaints of pain. No signs of respiratory distress. Colostomy bag in place. Phillips catheter draining pale yellow urine tinged with blood. Fall precautions implemented. Patient instructed to call for assistance when needed. Call light within reach.
[2019-07-12] MEDS: ATORVASTATIN 20 MG TAB PO SCH (21:00)
[2019-07-12] MEDS: ZOLPIDEM TARTRATE 10 MG TAB PO PRN (22:21)
[2019-07-13] VITALS (8 sets, daily range): BP systolic 103–123; BP diastolic 55–73
--- NOTE | 2019-07-13 06:45 | NUR ---
Shift report given to oncoming nurse regarding patient's status.
[2019-07-13] MEDS: ALBUTEROL SULF 0.083% NEB SOLN 3 ML NEB NEB SCH ×2 (08:45→15:27)
[2019-07-13] MEDS: POLYETHYLENE GLYCOL 3350 17 GM PACK PO SCH ×2 (09:00→16:25)
[2019-07-13] MEDS: LOSARTAN POTASSIUM 100 MG TAB PO SCH (09:00)
[2019-07-13] MEDS: AMLODIPINE BESYLATE 5 MG TAB PO SCH (09:00)
[2019-07-13] MEDS: DOCUSATE SODIUM 100 MG CAP PO SCH (09:35)
[2019-07-13] MEDS: FUROSEMIDE INJ 10 MG/ML 2 ML VIAL IV SCH (09:36)
[2019-07-13] MEDS: FAMOTIDINE 20 MG/2 ML VIAL IV SCH ×2 (09:36→22:00)
[2019-07-13] MEDS: PANTOPRAZOLE SOD 40 MG TABEC PO SCH (09:37)
[2019-07-13] MEDS: HYDROCODONE/APAP 10MG-325MG TAB PO PRN ×2 (09:40→18:40)
[2019-07-13] MEDS: HEPARIN SOD (PORCINE) 5,000 UNIT/ML VIAL SC SCH ×2 (10:20→22:00)
[2019-07-13] MEDS: LINEZOLID 600 MG/D5W 300ML 300 ML IV SCH (11:43)
[2019-07-13] MEDS: ERTAPENEM 1GM/NS 100ML 100 ML IV SCH (13:54)
--- NOTE | 2019-07-13 19:28 | NUR ---
Patient received lying in bed. AAO x 3. at bedside. No c/o pain. Respirations even and non-labored on 2L NC. Phillips catheter and Colostomy bag in place. Call light within reach.
[2019-07-13] MEDS: ATORVASTATIN 20 MG TAB PO SCH (22:00)
--- NOTE | 2019-07-13 22:10 | NUR ---
Catheter stabilization device changed.
[2019-07-13] MEDS: ZOLPIDEM TARTRATE 10 MG TAB PO PRN (22:46)
[2019-07-14] VITALS (9 sets, daily range): BP systolic 102–118; BP diastolic 56–65
[2019-07-14] MEDS: LINEZOLID 600 MG/D5W 300ML 300 ML IV SCH ×3 (00:40→23:35)
[2019-07-14 06:15] LABS: BASOPHILS % 0.4 % (0.0-1.0); EOSINOPHILS # (AUTO) 0.1 (0.0-0.4); EOSINOPHILS % 2.1 % (0.0-6.0); HEMATOCRIT 26.7 % (34.2-44.1); LYMPHOCYTES # (AUTO) 1.2 (1.0-3.2); LYMPHOCYTES % 26.1 % (18.0-39.1); MEAN CORPUSCULAR HGB CONC 33.7 g/dL (31-35); MONOCYTES # (AUTO) 0.3 (0.2-0.8); MONOCYTES % 6.9 % (4.4-11.3); NEUTROPHILS # (AUTO) 3.1 (2.1-6.9); NEUTROPHILS % 64.3 % (38.7-80.0); PLATELET COUNT 225 x10e3/uL (140-360); RED CELL DISTRIBUTION WIDTH 13.2 % (11.7-14.4)
[2019-07-14 06:32] LABS: ALBUMIN 1.9 g/dL (3.5-5.0); ALBUMIN/GLOBULIN RATIO 0.6 (0.8-2.0); ANION GAP 11.3 mmol/L (8-16); CALCIUM 8.6 mg/dL (8.4-10.2); CREATININE, SERUM 0.98 mg/dL (0.57-1.11); MAGNESIUM 1.6 MG/DL (1.3-2.1); POTASSIUM 3.3 mmol/L (3.5-5.1)
--- NOTE | 2019-07-14 07:00 | NUR ---
Walking rounds done. Patient resting comfortably. Shift report given to oncoming nurse.
--- NOTE | 2019-07-14 07:00 | NUR ---
BEDSIDE SHIFT REPORT RECEIVED FROM RIDE MECHANIC RN. PT DENIES NEEDS AT THIS TIME.
[2019-07-14] MEDS: DOCUSATE SODIUM 100 MG CAP PO SCH (08:09)
[2019-07-14] MEDS: PANTOPRAZOLE SOD 40 MG TABEC PO SCH (08:09)
[2019-07-14] MEDS: HYDROCODONE/APAP 10MG-325MG TAB PO PRN ×2 (08:11→17:35)
[2019-07-14] MEDS: FUROSEMIDE INJ 10 MG/ML 2 ML VIAL IV SCH (08:16)
[2019-07-14] MEDS: ALBUTEROL SULF 0.083% NEB SOLN 3 ML NEB NEB SCH ×3 (08:20→23:00)
[2019-07-14] MEDS: FAMOTIDINE 20 MG/2 ML VIAL IV SCH ×2 (08:23→21:25)
[2019-07-14] MEDS: POLYETHYLENE GLYCOL 3350 17 GM PACK PO SCH ×2 (08:23→16:58)
[2019-07-14] MEDS: HEPARIN SOD (PORCINE) 5,000 UNIT/ML VIAL SC SCH ×2 (08:30→21:25)
[2019-07-14] MEDS: LOSARTAN POTASSIUM 100 MG TAB PO SCH (09:00)
[2019-07-14] MEDS: AMLODIPINE BESYLATE 5 MG TAB PO SCH (09:00)
--- NOTE | 2019-07-14 10:00 | NUR ---
PAGED DR. MUÑOZ AND INFORMED PT LOW BP LEVELS FOR LAST FEW DAYS. HOLD BP MEDS AND MONITOR PER THE
--- NOTE | 2019-07-14 11:17 | NUR ---
EDUCATED ABOUT IMM, SIGNED, FILED IN CHART, WITH COPY LEFT WITH FAMILY AT BEDSIDE.
--- NOTE | 2019-07-14 11:30 | NUR ---
PAGED DR. MUÑOZ AND UPDATED PT POTASSIUM LEVEL. NEW ORDER RECEIVED.
--- NOTE | 2019-07-14 11:40 | NUR ---
CM reached out to Dr. Arenas regarding DC plan. CM left message regarding possible LTAC. Awaiting response.
[2019-07-14] MEDS ORDERED: POTASSIUM CHLORIDE 20 MEQ TAB CR PO ONE (12:40)
[2019-07-14] MEDS: ONDANSETRON HCL INJ 2MG/ML 2ML 2 MG/ML VIAL IV PRN (14:00)
[2019-07-14] MEDS: MEROPENEM 500MG/ NS 50ML 50 ML IV SCH ×2 (15:00→22:00)
--- NOTE | 2019-07-14 15:21 | NUR ---
Nutrition Follow-up Note RD Recommendation(s) for Physician: - Continue diet as ordered - Rec Ensure Enlive BID to increase protein-calorie intake - The patient meets criteria for MODERATE protein-calorie malnutrition. Plan of Care: RD following, monitoring for tolerance and adequacy, ONS rec Nutrition reason for involvement: Follow up RD Assessment (07/14) Visited pt in the room. Pt stated I am not eating much due to taste preferences. Pt complained of no salt given to her meals. Explained the purpose of cardiac diet and relationship between salt intake and her medical condition. Pt also complained of some sore throat but no chewing or swallowing difficulty. Pt denied any nausea or vomiting. LBM 07/13. Pt liked Katherine Ensure and RD resumed supplements order. Discussed menu options with patient. Will continue to monitor and follow. (07/08) Visited pt in the room. Per , pt has had fair appetite. PCT recorded 75-100% meal intake. Pt drank some of the Ensure ordered. No GI complains reported. Discussed menu options with . Will continue to monitor and follow. (07/05) 84yo F, who was admitted for CHF. CXR showed volume overload. Visited pt in the room. Pt reported poor appetite for over 6 months. Pt stated I just dont eat as much as I used to. RN recorded 75-100% meal intake since admission. Pt with hx of cancer, no longer on chemotherapy. Pt reported 30+ lbs weight loss in the last 6 months. Pt denied any nausea or vomiting. LBM 07/04. Pt denied any chewing or swallowing difficulty. Upon NFPA, pt had moderate fat/ muscle loss. Pt usually drinks 2 Boost at home daily. RD rec Ensure BID and pt was agreeable. Will continue to monitor and follow. Principal Problems/Diagnoses: CHF, PNA PMH: HTN, CHF, uterine and rectal cancer GI: abdomen flat, soft, non-tender, flatus present Skin: no pressure wound noted Labs: (07/14) Na 127 L, K 3.3 L (07/08) Na 127 L, K 3.4 L, Iron 29 L, TIBC 171 L, transferrin 122 L (07/05) Na 132 L, K 3.4 L Meds: zofran, heparin, miralax, pepcid, lasix, colace, protonix Ht: 61in Wt: 109.13lb; 112lb BMI: 20.6kg/m2 IBW: 105lb +/- 10% Malnutrition Evaluation (07/05/2019) The patient meets criteria for MODERATE protein-calorie malnutrition. Energy intake: <75% of estimated energy requirements for >3 months Weight loss: >10% in 6 months (Chronic) Fat loss: Moderate clavicle protrusion, Muscle loss: Moderate squaring of shoulder, temporal depression Supporting Evidence: Fluid accumulation: unable to evaluate Functional Status: no changes Nutrition Prescription (Diet Order): cardiac diet Estimated Nutritional Needs: Calories: 1250 1500kcal (25-30kcal/kg/d) Weight used: CBW Protein: 50 75g protein (1-1.5g/kg/d) Weight used: CBW Diet Adequacy: Not meeting calorie needs, not meeting protein needs Diet Education Needs Assessment: Diet education not indicated. Not appropriate due to age and hx of significant weight loss. Nutrition Care Level: low Nutrition Diagnosis: Moderate malnutrition related to chronic illnesses (cancer, CHF) as evidenced by weight loss, muscle/fat loss, and inadequate energy intake. Goal: Patient will meet 75-100% of estimated needs by follow up Progress: Progressing Interventions: Modified diet, Commercial beverage Monitoring/Evaluation: Total energy intake, Total protein intake, Modified diet, Liquid supplement, Weight change Signed: Kirsten Bain MS, RD, LD
--- NOTE | 2019-07-14 17:10 | NUR ---
URINE CULTURE GIVEN TO THE LAB
--- NOTE | 2019-07-14 19:00 | NUR ---
BEDSIDE SHIFT REPORT GIVEN TO THE FUEL SYSTEM MAINTENANCE WORKER RN. PT DENIED FURTHER NEEDS.
[2019-07-14] MEDS: ATORVASTATIN 20 MG TAB PO SCH (21:25)
[2019-07-14] MEDS: ZOLPIDEM TARTRATE 10 MG TAB PO PRN (22:00)
[2019-07-14] MEDS ORDERED: SODIUM CHLORIDE 0.9% 250ML 250 ML ONE (23:36)
[2019-07-15] VITALS (8 sets, daily range): BP systolic 96–121; BP diastolic 57–93
[2019-07-15] MEDS: MEROPENEM 500MG/ NS 50ML 50 ML IV SCH ×3 (05:44→22:17)
[2019-07-15 06:01] LABS: BASOPHILS % 0.4 % (0.0-1.0); EOSINOPHILS # (AUTO) 0.1 (0.0-0.4); EOSINOPHILS % 1.9 % (0.0-6.0); HEMATOCRIT 25.8 % (34.2-44.1); HEMOGLOBIN 8.7 g/dL (12.0-16.0); LYMPHOCYTES # (AUTO) 1.1 (1.0-3.2); LYMPHOCYTES % 22.8 % (18.0-39.1); MEAN CORPUSCULAR HEMOGLOBIN 29.8 pg (28-32); MEAN CORPUSCULAR HGB CONC 33.7 g/dL (31-35); MEAN CORPUSCULAR VOLUME 88.4 fL (81-99); MONOCYTES # (AUTO) 0.3 (0.2-0.8); MONOCYTES % 6.4 % (4.4-11.3); NEUTROPHILS # (AUTO) 3.2 (2.1-6.9); NEUTROPHILS % 68.3 % (38.7-80.0); PLATELET COUNT 190 x10e3/uL (140-360); RED BLOOD COUNT 2.92 x10e6/uL (3.6-5.1); RED CELL DISTRIBUTION WIDTH 13.2 % (11.7-14.4)
[2019-07-15 06:19] LABS: ALBUMIN 1.8 g/dL (3.5-5.0); ALBUMIN/GLOBULIN RATIO 0.5 (0.8-2.0); ANION GAP 9.9 mmol/L (8-16); CALCIUM 8.6 mg/dL (8.4-10.2); CREATININE, SERUM 1.03 mg/dL (0.57-1.11); MAGNESIUM 1.6 MG/DL (1.3-2.1); POTASSIUM 3.9 mmol/L (3.5-5.1)
--- NOTE | 2019-07-15 07:00 | NUR ---
BEDSIDE SHIFT REPORT RECEIVED FROM THE SOCIAL WORKER RN. PT DENIES NEEDS AT THIS TIME.
--- NOTE | 2019-07-15 07:14 | NUR ---
BEDSIDE REPORT GIVEN TO LUAN RIZZO AT THIS TIME.
[2019-07-15] MEDS: ALBUTEROL SULF 0.083% NEB SOLN 3 ML NEB NEB SCH ×3 (07:20→21:52)
[2019-07-15] MEDS: HEPARIN SOD (PORCINE) 5,000 UNIT/ML VIAL SC SCH ×2 (08:45→21:00)
[2019-07-15] MEDS: FAMOTIDINE 20 MG/2 ML VIAL IV SCH ×2 (08:50→21:00)
[2019-07-15] MEDS: FUROSEMIDE INJ 10 MG/ML 2 ML VIAL IV SCH (08:50)
[2019-07-15] MEDS: DOCUSATE SODIUM 100 MG CAP PO SCH (08:53)
[2019-07-15] MEDS: POLYETHYLENE GLYCOL 3350 17 GM PACK PO SCH ×2 (08:53→16:21)
[2019-07-15] MEDS: PANTOPRAZOLE SOD 40 MG TABEC PO SCH (08:53)
[2019-07-15] MEDS: AMLODIPINE BESYLATE 5 MG TAB PO SCH (09:00)
[2019-07-15] MEDS: LOSARTAN POTASSIUM 100 MG TAB PO SCH (09:00)
[2019-07-15] MEDS: HYDROCODONE/APAP 10MG-325MG TAB PO PRN ×2 (11:10→17:40)
[2019-07-15] MEDS: LINEZOLID 600 MG/D5W 300ML 300 ML IV SCH (11:19)
--- NOTE | 2019-07-15 11:50 | NUR ---
PAGED DR. MUÑOZ AND INFORMED PT HEART RATE 109 & BP 121/62. CONTINUE TO MONITOR PER THE DR. NO NEW ORDERS RECEIVED.
--- NOTE | 2019-07-15 12:58 | NUR ---
ORDERS FOR LTAC EVAL AND TRANSFER WHEN ACCEPTED CHOICE LETTER SIGNED BY PT FOR [facility] NOTIFIED DELFINA DENNIS WITH [facility] OF CONSULT AND TRANSFER MOT INITIATED AND GIVEN TO CUSHION COVER INSPECTOR WHO IS MAKING PACKET FOR PT AND WILL PLACE MOT IN PACKET NURSE RIZZO UPDATED ON STATUS PT'S IN ROOM AND AWARE OF DC PLAN
--- NOTE | 2019-07-15 19:00 | NUR ---
BEDSIDE SHIFT REPORT GIVEN TO THE CUPROUS CHLORIDE HELPER RN. PT FAMILY AT BEDSIDE. PT DENIED FURTHER NEEDS.
--- NOTE | 2019-07-15 19:35 | NUR ---
RECEIVED PT WALKING IN THE ROOM WITH WALKER . ..LEFT CHEST WITH PROCATH .DENIES PAIN /COLOSTOMY INTACT FAMILY AT THE BEDSIDE .DENIES PAIN CA.LL LIGHT WITH IN REACH .CONTINUE TO MONITOR
--- NOTE | 2019-07-15 20:00 | NUR ---
RECEIVED PT IN BED AOX3 .RESPIRATIONS ARE EVEN AND UNLABORED .SKIN WARM AND DRY TO TOUCH .CALL LIGHT WITH IN REACH .CONTINUE TO MONITOR
[2019-07-15] MEDS: ATORVASTATIN 20 MG TAB PO SCH (21:00)
[2019-07-16] VITALS (7 sets, daily range): BP systolic 91–113; BP diastolic 52–73
[2019-07-16 05:33] LABS: BASOPHILS % 0.5 % (0.0-1.0); EOSINOPHILS # (AUTO) 0.1 (0.0-0.4); EOSINOPHILS % 1.7 % (0.0-6.0); HEMATOCRIT 25.2 % (34.2-44.1); HEMOGLOBIN 8.5 g/dL (12.0-16.0); LYMPHOCYTES # (AUTO) 1.1 (1.0-3.2); LYMPHOCYTES % 25.7 % (18.0-39.1); MEAN CORPUSCULAR HEMOGLOBIN 30.1 pg (28-32); MEAN CORPUSCULAR HGB CONC 33.7 g/dL (31-35); MEAN CORPUSCULAR VOLUME 89.4 fL (81-99); MONOCYTES # (AUTO) 0.3 (0.2-0.8); MONOCYTES % 6.7 % (4.4-11.3); NEUTROPHILS # (AUTO) 2.8 (2.1-6.9); NEUTROPHILS % 65.2 % (38.7-80.0); PLATELET COUNT 170 x10e3/uL (140-360); RED BLOOD COUNT 2.82 x10e6/uL (3.6-5.1); RED CELL DISTRIBUTION WIDTH 13.2 % (11.7-14.4)
[2019-07-16 05:48] LABS: ALBUMIN 1.8 g/dL (3.5-5.0); ALBUMIN/GLOBULIN RATIO 0.5 (0.8-2.0); ANION GAP 13.5 mmol/L (8-16); CALCIUM 8.5 mg/dL (8.4-10.2); CREATININE, SERUM 1.05 mg/dL (0.57-1.11); POTASSIUM 3.5 mmol/L (3.5-5.1)
--- NOTE | 2019-07-16 05:53 | NUR ---
PT RESTED DURING THE NIGHT .NO ACUTE DISTRESS NOTED .CALL LIGHT WITH IN REACH .CONTINUE TO MONITOR
[2019-07-16] MEDS: MEROPENEM 500MG/ NS 50ML 50 ML IV SCH ×2 (06:00→14:00)
--- NOTE | 2019-07-16 07:09 | NUR ---
BEDSIDE REPORT GIVEN TO THE ONCOMING NURSE
[2019-07-16] MEDS: ALBUTEROL SULF 0.083% NEB SOLN 3 ML NEB NEB SCH ×2 (07:28→15:25)
--- NOTE | 2019-07-16 07:45 | NUR ---
Patient alert and responsive, no resp distress, in bed, Phillips in place draining C/Y urine, Colostomy in place, will monitor.
[2019-07-16] MEDS: PANTOPRAZOLE SOD 40 MG TABEC PO SCH (09:30)
[2019-07-16] MEDS: POLYETHYLENE GLYCOL 3350 17 GM PACK PO SCH ×2 (09:30→16:58)
[2019-07-16] MEDS: DOCUSATE SODIUM 100 MG CAP PO SCH (09:30)
[2019-07-16] MEDS: FUROSEMIDE INJ 10 MG/ML 2 ML VIAL IV SCH (09:30)
[2019-07-16] MEDS: AMLODIPINE BESYLATE 5 MG TAB PO SCH (09:30)
[2019-07-16] MEDS: FAMOTIDINE 20 MG/2 ML VIAL IV SCH ×2 (09:30→20:14)
[2019-07-16] MEDS: LOSARTAN POTASSIUM 100 MG TAB PO SCH (09:31)
[2019-07-16] MEDS: HEPARIN SOD (PORCINE) 5,000 UNIT/ML VIAL SC SCH (09:32)
--- NOTE | 2019-07-16 09:59 | NUR ---
Patient alert, colostomy out with large amts of stool, changed, stoma beefy red, intact, no skin breakdown, tolerating meals, will monitor as call light within reach.
--- NOTE | 2019-07-16 11:30 | NUR ---
Patient cleared for discharge by Dr. Ocampo, transfer to LT[facility] when bed is available.
--- NOTE | 2019-07-16 11:45 | NUR ---
Cleared for discharge by [facility]- Infectious disease, transfer to LTAC when bed is available
[2019-07-16] MEDS: LINEZOLID 600 MG/D5W 300ML 300 ML IV SCH ×2 (12:00)
[2019-07-16] MEDS ORDERED: SODIUM CHLORIDE 0.9% 250ML 250 ML ONE (13:37)
[2019-07-16] MEDS: HYDROCODONE/APAP 10MG-325MG TAB PO PRN (15:49)
--- NOTE | 2019-07-16 18:14 | NUR ---
Called [place] and gave report to Joellen- LUAN, patient will continue with IV abx via Port-A-cath, line in place, Phillips cath in place draining, Colostomy in place with good output. Patient OOB today and ambulated in room, sat up on recliner and assisted back to bed. Tolerated all abx and will monitor.
--- NOTE | 2019-07-16 19:25 | NUR ---
Patient received lying in bed. AAO x 3. No complaints of pain. No signs of respiratory distress. Port-A-Cath patent. Phillips catheter and Colostomy bag in place. Fall precautions implemented. Patient instructed to call for assistance when needed. Call light within reach.
[2019-07-16] MEDS: ATORVASTATIN 20 MG TAB PO SCH (20:14)
--- NOTE | 2019-07-16 20:15 | NUR ---
Patient discharged to [facility] and transported via stretcher by EMS. Patient in stable condition. Vital signs WNL.
--- NOTE | 2019-07-18 05:26 | Discharge Summary ---
DISCHARGE DIAGNOSES: 1. Congestive heart failure, eeqib-am-erttmei systolic heart failure. 2. Bilateral pleural effusions, status post thoracentesis. 3. Multidrug resistant urinary tract infection. 4. Moderate protein malnutrition. 5. Anemia. 6. History of anal cancer. 7. Hypertension. HISTORY OF PRESENT ILLNESS AND HOSPITAL COURSE: See hospital chart for full details. The patient is a lady came in with acute shortness of breath, volume overload, and bilateral pleural effusions and was found on echo to have an EF of 30%. She was seen by Pulmonary due to her bilateral pleural effusions, where she did have thoracentesis x2 with over a liter removed with significant improvement of her symptoms. She was also diuresed and placed on new medication to help with her congestive heart failure, which helped tremendously. By the time of discharge, the patient was very weak and was found to have multidrug resistant urinary tract infection secondary to chronic catheter placement. She was then transferred to [place] for continued treatment with rehab and to continue IV antibiotics due to the patient's moderate protein malnutrition, due to her untreated anal cancer. For the patient's prognosis, she was encouraged to have increased p.o. intake. MD DANN Vila/SAMSON /[id number]
== END 2019-07-16 20:15 | DRG 291 ==
LOC: ER 16:35 → ERHOLD 19:29 → ICU 21:10 → MED/SURG2 07-06 10:32
PROVIDERS: ADMIT Internal Medicine; ATTEND Internal Medicine
PROC: 0W9B3ZZ Drainage of Left Pleural Cavity, Percutaneous Approach (ICD-10-PCS; 2019-07-08)
PROC: 0W993ZZ Drainage of Right Pleural Cavity, Percutaneous Approach (ICD-10-PCS; principal; 2019-07-12)
DX: I11.0 Hypertensive heart disease with heart failure (principal); J18.9 Pneumonia, unspecified organism; I50.21 Acute systolic (congestive) heart failure; T83.518A Infection and inflammatory reaction due to other urinary catheter, initial encounter; N39.0 Urinary tract infection, site not specified; E44.0 Moderate protein-calorie malnutrition; J90 Pleural effusion, not elsewhere classified; Z68.21 Body mass index [BMI] 21.0-21.9, adult; D64.9 Anemia, unspecified; Z16.24 Resistance to multiple antibiotics; Z85.048 Personal history of other malignant neoplasm of rectum, rectosigmoid junction, and anus; R33.9 Retention of urine, unspecified; E83.52 Hypercalcemia; Z90.49 Acquired absence of other specified parts of digestive tract; Z90.722 Acquired absence of ovaries, bilateral; Z85.42 Personal history of malignant neoplasm of other parts of uterus; I35.0 Nonrheumatic aortic (valve) stenosis; Z16.22 Resistance to vancomycin related antibiotics; E87.8 Other disorders of electrolyte and fluid balance, not elsewhere classified; B95.62 Methicillin resistant Staphylococcus aureus infection as the cause of diseases classified elsewhere; B96.4 Proteus (mirabilis) (morganii) as the cause of diseases classified elsewhere; Z85.528 Personal history of other malignant neoplasm of kidney; E87.6 Hypokalemia
CPT/HCPCS: 32555; 36415; 71045; 71046; 74176; 74470; 80048; 80053; 80061; 81001; 82150; 82550; 82553; 82945; 82948; 83540; 83605; 83615; 83735; 83880; 84157; 84466; 84484; 85014; 85018; 85025; 85610; 85730; 86850; 86900; 86920; 87040; 87070; 87086; 87116; 87186; 87205; 87206; 88112; 88305; 89051; 93005; 93306; 94640; 97139; 99285; J0456; J0696; J1644; J1940; J2020; J2405; J7050; P9016

== ENCOUNTER 2019-08-12 18:02 | Inpatient (IN) | payer MEDICARE ==
[~2019-08-12] VITALS: Ht 154.9 cm; Wt 58.1 kg
[2019-08-12] MEDS ORDERED: SODIUM CHLORIDE 0.9% 1000ML 1,000 ML IV STA ×3 (18:20→21:27)
[2019-08-12] MEDS ORDERED: PANTOPRAZOLE 40 MG 10ML VIAL IV STA (18:20)
[2019-08-12] MEDS ORDERED: VANCOMYCIN 1GM/NS 250 ML 250 ML IV ONE (18:30)
--- NOTE | 2019-08-12 19:00 | NUR ---
RECEIVED REPORT FROM LUAN DONOHUE.
--- NOTE | 2019-08-12 19:12 | Diagnostic Imaging Report ---
A single frontal view of the chest. HISTORY: Low blood pressure, GI bleed, query sepsis COMPARISON: Chest radiograph July 12, 2019. DISCUSSION: Portable technique, limits sensitivity of the exam. Numerous overlying artifacts further limits evaluation. Tubes/Lines: The left-sided chest port appears unchanged. Lungs and pleura: Low lung volumes result in bibasilar vascular crowding, accentuation of the pulmonary interstitial markings, central pulmonary vasculature, and the cardiac silhouette. Allowing for these limitations, the findings are as follows: Bilateral left greater than right pleural effusions with adjacent atelectasis. Diffusely increased pulmonary interstitial markings with areas of more confluence opacities. Heart and mediastinum: The cardiac silhouette is partially obscured. The central pulmonary vasculature appears enlarged. Bones and soft tissues: Appear unchanged. IMPRESSION: Findings suggestive of volume overload resulting in moderate pulmonary edema, bilateral pleural effusions, and adjacent atelectasis. Superimposed pneumonia or aspiration may be consideration given the provided history. Recommend short term follow up routine PA and lateral chest radiographs, in 6 to 8 weeks, to evaluate for resolution. Signed by: Dr. Jorge Irizarry D.O., M.M.M. on 08/12/2019 7:09 PM
--- NOTE | 2019-08-12 19:30 | NUR ---
PT DIFFICULT STICK, AFTER SEVERAL ATTEMPTS FOR BLOOD DRAW WAS ABLE TO OBTAIN SPECIMENS FOR LAB. PT TOLERATED WELL.
[2019-08-12 19:32] LABS: BASOPHILS % 0.2 % (0.0-1.0); EOSINOPHILS % 0.1 % (0.0-6.0); HEMATOCRIT 29.8 % (34.2-44.1); LYMPHOCYTES # (AUTO) 0.9 (1.0-3.2); LYMPHOCYTES % 5.4 % (18.0-39.1); MEAN CORPUSCULAR HEMOGLOBIN 29.8 pg (28-32); MEAN CORPUSCULAR HGB CONC 33.6 g/dL (31-35); MEAN CORPUSCULAR VOLUME 88.7 fL (81-99); MONOCYTES # (AUTO) 0.6 (0.2-0.8); MONOCYTES % 3.7 % (4.4-11.3); NEUTROPHILS # (AUTO) 14.2 (2.1-6.9); NEUTROPHILS % 89.7 % (38.7-80.0); PLATELET COUNT 383 x10e3/uL (140-360); RED BLOOD COUNT 3.36 x10e6/uL (3.6-5.1); RED CELL DISTRIBUTION WIDTH 14.7 % (11.7-14.4)
[2019-08-12 19:41] LABS: INR 1.05; PROTHROMBIN TIME 14.2 seconds (11.9-14.5)
[2019-08-12 19:45] LABS: BILIRUBIN,URINE NEGATIVE (NEGATIVE); CLARITY,URINE CLOUDY (CLEAR); COLOR,URINE OTHER (YELLOW); KETONES,URINE NEGATIVE (NEGATIVE); LEUKOCYTE ESTERASE ,URINE LARGE (NEGATIVE); NITRITE,URINE NEGATIVE (NEGATIVE); PROTEIN,URINE DIPSTICK 1+ (NEGATIVE); URINE UROBILINOGEN 0.2 mg/dL (0.2 - 1)
--- NOTE | 2019-08-12 19:48 | NUR ---
DR GUAMAN AT BEDSIDE
[2019-08-12 19:50] LABS: ALBUMIN 1.6 g/dL (3.5-5.0); ALBUMIN/GLOBULIN RATIO 0.4 (0.8-2.0); ANION GAP 17.1 mmol/L (8-16); CALCIUM 8.7 mg/dL (8.4-10.2); CREATININE, SERUM 3.34 mg/dL (0.57-1.11); MAGNESIUM 1.6 MG/DL (1.3-2.1); POTASSIUM 4.1 mmol/L (3.5-5.1)
[2019-08-12 19:57] LABS: CREATINE KINASE MB 4.7 ng/mL (0-5.0)
[2019-08-12] MEDS: CEFEPIME 2 GM/NS 0.9% 100 ML 100 ML IV SCH (19:57)
[2019-08-12 20:06] LABS: BACTERIA,URINE FEW /HPF; WBC,URINE (MAN) 21-50 /HPF (0-5)
[2019-08-12] MEDS ORDERED: ONDANSETRON HCL INJ 2MG/ML 2ML 2 MG/ML VIAL IV PRN (20:15)
[2019-08-12] MEDS ORDERED: DEXTROSE 50% SYRINGE 50 ML IV PRN (20:15)
[2019-08-12 20:24] LABS: B-TYPE NATRIURETIC PEPTIDE2 647.4 pg/mL (0-100)
[2019-08-12 21:06] LABS: BAND NEUTROPHILS % (MANUAL) 4 %; LYMPHOCYTES % (MANUAL) 5 % (19-48); MONOCYTES % (MANUAL) 6 % (3.4-9.0); NEUTROPHILS % (MANUAL) 84 % (40-74)
[2019-08-12] MEDS: SODIUM CHLORIDE 0.9% 1000ML 1,000 ML IV SCH ×2 (21:06→23:47)
[2019-08-12 21:07] LABS: ANISOCYTOSIS SLIGHT; HYPOCHROMASIA SLIGHT; PLATELET ESTIMATE ADEQUATE; PLATELET MORPHOLOGY COMMENT NORMAL; RBC MORPHOLOGY COMMENT NORMAL
--- NOTE | 2019-08-12 21:30 | NUR ---
PT HAS NO URINE OUTPUT AFTER 2 LITERS NS BOLUS. MAINTENANCE FLUIDS @ 100CC PER HOUR. NOTIFIED DR MUÑOZ, RECEIVED ORDERS FOR 3RD LITER NS BOLUS
[2019-08-12] MEDS ORDERED: FUROSEMIDE20 MG PO (22:31)
[2019-08-12] MEDS ORDERED: ATORVASTATIN CA40 MG PO (22:31)
[2019-08-12] MEDS ORDERED: ZOLPIDEM TARTRA10 MG PO (22:31)
[2019-08-12] MEDS ORDERED: HYDROCODON-ACE1 EAC9 PO (22:31)
[2019-08-12 23:06] VITALS: BP 107/55
[2019-08-13] VITALS (24 sets, daily range): BP systolic 67–129; BP diastolic 44–88
[2019-08-13 01:10] LABS: CREATINE KINASE MB 4.4 ng/mL (0-5.0)
[2019-08-13] MEDS ORDERED: ALBUMIN 25% 25GM 100ML 0.25 GM/ML BTL IV ONE (03:45)
[2019-08-13] MEDS ORDERED: ALBUMIN 25% 12.5GM 50ML 100 ML IV ONE (03:46)
[2019-08-13 05:27] LABS: BASOPHILS % 0.1 % (0.0-1.0); LYMPHOCYTES # (AUTO) 0.6 (1.0-3.2); LYMPHOCYTES % 6.4 % (18.0-39.1); MEAN CORPUSCULAR HEMOGLOBIN 29.6 pg (28-32); MEAN CORPUSCULAR HGB CONC 33.5 g/dL (31-35); MEAN CORPUSCULAR VOLUME 88.4 fL (81-99); MONOCYTES # (AUTO) 0.5 (0.2-0.8); MONOCYTES % 5.4 % (4.4-11.3); NEUTROPHILS # (AUTO) 8.5 (2.1-6.9); NEUTROPHILS % 87.5 % (38.7-80.0); PLATELET COUNT 275 x10e3/uL (140-360); RED BLOOD COUNT 2.16 x10e6/uL (3.6-5.1); RED CELL DISTRIBUTION WIDTH 14.9 % (11.7-14.4)
[2019-08-13 05:31] LABS: HEMATOCRIT 19.1 % (34.2-44.1); HEMOGLOBIN 6.4 g/dL (12.0-16.0)
[2019-08-13] MEDS ORDERED: SODIUM CHLORIDE 0.9% 250ML 250 ML IV ONE (05:45)
[2019-08-13 05:54] LABS: CREATINE KINASE MB 4.4 ng/mL (0-5.0)
[2019-08-13] MEDS: CEFEPIME 2 GM/NS 0.9% 100 ML 100 ML IV SCH ×2 (06:11→17:42)
[2019-08-13 06:13] LABS: ALBUMIN 1.9 g/dL (3.5-5.0); ALBUMIN/GLOBULIN RATIO 0.8 (0.8-2.0); ANION GAP 10.4 mmol/L (8-16); CALCIUM 7.6 mg/dL (8.4-10.2); CHOL/HDL RATIO 15.2 (3.0-3.6); CREATININE, SERUM 2.68 mg/dL (0.57-1.11); POTASSIUM 3.4 mmol/L (3.5-5.1)
--- NOTE | 2019-08-13 07:30 | NUR ---
notified answering service for Dr Harris and Dr Cantu office regarding new consult
[2019-08-13 07:36] LABS: LYMPHOCYTES % (MANUAL) 7 % (19-48); MONOCYTES % (MANUAL) 6 % (3.4-9.0); NEUTROPHILS % (MANUAL) 87 % (40-74)
[2019-08-13 07:37] LABS: PLATELET ESTIMATE ADEQUATE; RBC MORPHOLOGY COMMENT NORMAL
[2019-08-13] MEDS: PANTOPRAZOLE 40 MG 10ML VIAL IV SCH ×2 (08:18→17:42)
[2019-08-13] MEDS ORDERED: NOREPINEPHRINE 8 MG/D5W 250 ML 250 ML IV PRN (09:15)
--- NOTE | 2019-08-13 11:15 | Diagnostic Imaging Report ---
Chest ultrasound. History: Pleural effusion. Comparison: Chest x-ray from 08/12/2019. Discussion: Transverse and longitudinal sonographic imaging of the bilateral posterior chest was performed. Moderate bilateral pleural effusions are identified, left greater than right. IMPRESSION: Moderate bilateral pleural effusions. Signed by: Ant Narayan on 08/13/2019 11:12 AM
[2019-08-13] MEDS: SODIUM CHLORIDE 0.9% 1000ML 1,000 ML IV SCH (13:00)
--- NOTE | 2019-08-13 16:57 | Consultation ---
DATE OF CONSULTATION: 08/13/2019 Pulmonary Consultation HISTORY OF PRESENT ILLNESS: The patient well known to Pulmonary Service, who was recently discharged from the hospital after an episode of congestive heart failure, requiring bilateral thoracentesis last month. 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 She has had chemotherapy in the past, but has apparently declined further therapy. She has a history of congestive heart failure and aortic stenosis. She has had both rectal and uterine bleeding in the past. She is a retired nurse. 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 She has had a Port-A-Cath placed. PAST MEDICAL HISTORY: She has history of hypertension. No history of coronary disease. She has a chronic Phillips catheter. ALLERGIES: TO IODINE AND MORPHINE. MEDICATIONS: Include amlodipine, Lasix, Vicodin, losartan, Protonix, Lipitor, and Ambien. SOCIAL HISTORY: Born in [place], [place]. PAST SURGICAL HISTORY: She has had appendectomy, breast biopsy, colostomy. PHYSICAL EXAMINATION: VITAL SIGNS: Temperature 97.7, pulse 107, blood pressure varies between 77 systolic and currently 90 systolic after fluid bolus. Hemoglobin fell to 6.4, and she has had apparent rectal bleeding. Awaiting GI evaluation. She has a colostomy. LUNGS: Diminished breath sounds in both bases. CARDIAC: Systolic murmur 5/6. ABDOMEN: Colostomy. EXTREMITIES: Nonedematous. IMPRESSION: Gastrointestinal blood loss. PLAN: Transfusion, therapy of anemia, hyponatremia, GI opinion is pending. Therapy of heart failure, she is currently asymptomatic. If short of breath, consider thoracentesis. Bilateral pleural effusions, she has been drained in the past. I am going to transudate. She is a DNR status. We will attempt to avoid pressors as possible. Thank you for this kind referral. MD ODILON Fenton/LEEANNL /[id number]
--- NOTE | 2019-08-13 19:27 | Diagnostic Imaging Report ---
A single frontal view of the chest. HISTORY: Shortness of breath, anal cancer, acute renal failure, congestive heart failure COMPARISON: Chest radiograph August 12 2019. DISCUSSION: Portable technique, limits sensitivity of the exam. Soft tissue attenuation partially limits sensitivity of the exam. Multiple overlying artifacts. Tubes/Lines: Unchanged appearance of the left chest port. Persistent low lung volumes. IMPRESSION: 1. Interval increase in the diffuse bilateral interstitial and airspace opacities, compatible with worsening pulmonary edema. 2. Bilateral moderate to large left and small to moderate right pleural effusions with adjacent atelectasis. Signed by: Dr. Jorge Irizarry D.O., M.M.M. on 08/13/2019 7:24 PM
[2019-08-13 21:02] LABS: CREATINE KINASE MB 4.1 ng/mL (0-5.0)
--- NOTE | 2019-08-13 21:39 | NUR ---
Pt HR increase from 110-120 up to 150-170's. Pt states she is comfortable, denies chest pain/SOB. Call immediately placed to Dr. Gomez, EKG ordered and completed. Results called back to Dr. Gomez, order to give 250 mcg IV digoxin x1 dose. Will administer and continue to monitor.
[2019-08-13] MEDS ORDERED: DIGOXIN INJ 0.25 MG/ML 2 ML AMP IV ONE (22:00)
--- NOTE | 2019-08-13 23:35 | NUR ---
Received phone call from day shift RNSelma regarding Lidocaine patch order from Dr. Harris during the day. Order placed.
[2019-08-13] MEDS: LIDOCAINE 4% PATCH TP SCH (23:37)
[2019-08-14] VITALS (24 sets, daily range): BP systolic 84–142; BP diastolic 55–119
--- NOTE | 2019-08-14 01:24 | Consultation ---
DATE OF CONSULTATION: 08/13/2019 Cardiology consult note REASON FOR CONSULTATION: Elevated troponin. CHIEF COMPLAINT: Could not be obtained due to altered mental status. HISTORY OF PRESENT ILLNESS: The patient is an 84-year-old female with history of colorectal and anal cancer with metastatic disease, who is presenting with likely severe GI bleeding, severe anemia, elevated troponin in the setting, hypotension, and tachycardia. She is altered and does not answer any questions. REVIEW OF SYSTEMS: Could not be obtained due to altered mental status. PAST MEDICAL HISTORY: 1. History of metastatic rectal cancer. 2. History of chronic congestive heart failure. OUTPATIENT MEDICATIONS: Reviewed in the JAN. ALLERGIES: IODINE AND MORPHINE. SOCIAL HISTORY: Per the chart, does not smoke, drink, or abuse drugs. FAMILY HISTORY: Noncontributory. OBJECTIVE: VITAL SIGNS: Temperature afebrile, pulse 109, respiratory rate 16, blood pressure 102/61, and saturating 100% on 2 L nasal cannula. GENERAL: Elderly frail female, sleeping, confused. CARDIOVASCULAR: Tachycardic, 2/6 systolic murmur heard at right upper sternal border and throughout the precordium consistent with aortic stenosis. LUNGS: Decreased breath sounds in bilateral bases. ABDOMEN: Soft, nontender, nondistended. NEURO AND PSYCH: The patient is lethargic, arousable, A and O x0. INPATIENT MEDICATIONS: Reviewed. LABORATORY DATA: Reviewed notable for hemoglobin of 6.4, lactate 30, troponin of 2.6, BNP of 647, and creatinine of 2.7. IMAGING DATA: Reviewed. Chest x-ray suggests pulmonary edema and bilateral pleural effusion, superimposed pneumonia could not be excluded. Chest ultrasound shows moderate bilateral pleural effusion. ASSESSMENT AND PLAN: 1. Acute on chronic systolic heart failure exacerbation. 2. Type 2 myocardial infarction secondary to severe anemia and congestive heart failure. 3. Lower gastrointestinal bleeding with severe anemia. 4. Hypotension. 5. Aortic stenosis. 6. Metastatic rectal cancer. PLAN: The patient is DNR/DNI and will be managed conservatively. Given GI bleeding, not a candidate for anticoagulation. We will get echocardiogram to evaluate LV function and aortic valve function. Overall prognosis is poor given multiorgan failure and overall poor condition. Thank you for the consult. We will continue to follow closely. MD MUMTAZ Camacho/LEEANNL /[id number]
--- NOTE | 2019-08-14 02:19 | Consultation ---
DATE OF CONSULTATION: 08/13/2019 GI Consult Note CONSULTING PHYSICIAN: Clive Arenas MD. REASON FOR CONSULT: Acute blood loss anemia. HISTORY OF PRESENTING ILLNESS: An 84 years old white female, who is known to have history of uterine versus rectal cancer. Apparently, it is not getting clear whether rectal cancer is spreading to uterus or uterine cancer, it is spreading to rectum. She has had a diversion colostomy seven months ago. She also has a Port-A-Cath. She is seen by oncologist, Dr. Durham. As per the patient's family, she has benson bleeding rectally as well as vaginally almost every day. They have to change her pads. She got admitted through the emergency room into ICU because she was complaining about weakness, lightheadedness, and shortness of breath. In the emergency room, her hemoglobin was noted 10 yesterday, which dropped down to 6.4 after IV fluid hydration. The patient was also noted to be quite hypotensive. Therefore, she is in the ICU for monitoring of vitals. Currently, she is mentating. She has not had any episode of rectal bleeding while being in the ICU. Denies any associated abdominal pain. No nausea or vomiting. REVIEW OF SYSTEMS: Twelve point system reviewed, symptomatology is limited as per HPI. PAST MEDICAL HISTORY: Rectal/uterine cancer, and chronic anemia. PAST SURGICAL HISTORY: Cholecystectomy, appendectomy, diversion colostomy, and oophorectomy. FAMILY HISTORY: Noncontributory given her advanced age. SOCIAL HISTORY: No smoking, alcohol, or any illicit drug use. ALLERGIES: IODINE. HOME MEDICATION: Amlodipine, atorvastatin, furosemide, hydrocodone/acetaminophen, losartan, pantoprazole, and zolpidem. INPATIENT MEDICATIONS: List is reviewed as per JAN. PHYSICAL EXAMINATION: VITAL SIGNS: Temperature 98.1, pulse ranging from 109 to 116, respirations 16, blood pressure 102/61 to 105/66, and oxygen saturation 100% on 2 L of nasal cannula. GENERAL: Not in any acute distress, elderly frail. HEENT: Oral mucosa is moist. Anicteric sclerae. CARDIOVASCULAR SYSTEM: S1, S2 regular with a 3/6 flow murmur at the apex. LUNGS: Bilaterally grossly clear, although the patient has very poor inspiratory effort. Port-A-Cath in the left anterior chest wall. ABDOMEN: Soft, nondistended, nontender. Left colostomy bag with dark brown fecal fluid. EXTREMITIES: Warm. No leg edema. LABORATORY DATA: WBC 9.66, this dropped down from 15.79 yesterday, hemoglobin dropped down to 6.4 from 10.0, hematocrit 19 from 29.8, and platelet count 275. PT 14.2 and INR 1.05. Sodium 123, potassium 3.4, chloride 94, bicarb 22, BUN 34, and creatinine 2.68 (baseline creatinine is 1.03 to 1.05). Liver enzymes normal. Chest x-ray: 1. Interval increase in diffuse bilateral interstitial and airspace opacities. This is compatible with worsening pulmonary edema. 2. Bilateral moderate to large left and small to moderate right pleural effusion with adjacent atelectasis. IMPRESSION: 1. Acute blood loss anemia is due to persistent rectal/vaginal bleeding. No active GI bleeding at this time. 2. Significant hyponatremia. PLAN: Medical management of hyponatremia as per primary team. Recommend blood transfusion. We will defer any endoscopic intervention at this time. I will continue to monitor her clinically. Shawn Collazo MD SA/MODL /[id number]
[2019-08-14 05:13] LABS: BASOPHILS % 0.2 % (0.0-1.0); EOSINOPHILS % 0.2 % (0.0-6.0); HEMATOCRIT 36.8 % (34.2-44.1); HEMOGLOBIN 12.4 g/dL (12.0-16.0); LYMPHOCYTES % 8.2 % (18.0-39.1); MEAN CORPUSCULAR HGB CONC 33.7 g/dL (31-35); MONOCYTES # (AUTO) 0.8 (0.2-0.8); MONOCYTES % 6.4 % (4.4-11.3); NEUTROPHILS # (AUTO) 10.3 (2.1-6.9); NEUTROPHILS % 84.6 % (38.7-80.0); PLATELET COUNT 251 x10e3/uL (140-360); RED BLOOD COUNT 4.28 x10e6/uL (3.6-5.1); RED CELL DISTRIBUTION WIDTH 15.1 % (11.7-14.4)
[2019-08-14 05:30] LABS: ANION GAP 15.9 mmol/L (8-16); CALCIUM 8.7 mg/dL (8.4-10.2); CREATININE, SERUM 2.25 mg/dL (0.57-1.11); POTASSIUM 3.9 mmol/L (3.5-5.1)
[2019-08-14] MEDS: SODIUM CHLORIDE 0.9% 1000ML 1,000 ML IV SCH ×2 (06:13→13:37)
[2019-08-14] MEDS: CEFEPIME 2 GM/NS 0.9% 100 ML 100 ML IV SCH ×2 (06:14→17:51)
--- NOTE | 2019-08-14 06:56 | Diagnostic Imaging Report ---
SHOULDER LEFT 1 VIEW - 1 view HISTORY: Pain COMPARISON: Chest x-ray dated 08/13/2019 FINDINGS: See impression IMPRESSION: Limited single view of the left shoulder show no definite evidence of acute displaced fracture or dislocation. If there is high clinical concern, consider obtaining additional views. Degenerative changes of the glenohumeral joint. Partially seen left chest wall port Signed by: Dr. Aldo Mcclelland MD on 08/14/2019 6:53 AM
--- NOTE | 2019-08-14 07:44 | Diagnostic Imaging Report ---
EXAMINATION: CHEST SINGLE (PORTABLE) INDICATION: Effusions COMPARISON: Chest radiograph 08/13/2019 FINDINGS: AP view TUBES and LINES: Left chest wall port with left subclavian central venous catheter, tip at the brachiocephalic caval junction. LUNGS: Persistent bilateral lower lobe hazy airspace opacities. PLEURA: Stable bilateral pleural effusions. HEART AND MEDIASTINUM: Mildly enlarged cardiac mediastinal silhouette. Aortic arch calcifications. BONES AND SOFT TISSUES: No acute osseous lesion. Soft tissues are unremarkable. S-shaped curvature of the spine. UPPER ABDOMEN: No free air under the diaphragm. IMPRESSION: Mild cardiomegaly and bilateral pleural effusions. Bilateral lower lobe airspace disease, considerations include atelectasis and/or edema. Signed by: Laith Romero DO on 08/14/2019 7:41 AM
--- NOTE | 2019-08-14 07:54 | NUR ---
Spoke with Dr Arenas. Advised do not give lasix IVP with BP 97/64 and HR 120's.
[2019-08-14] MEDS ORDERED: FUROSEMIDE INJ 10 MG/ML 2 ML VIAL IV ONE (08:00)
[2019-08-14] MEDS: PANTOPRAZOLE 40 MG 10ML VIAL IV SCH ×2 (09:31→17:50)
[2019-08-14] MEDS: LIDOCAINE 4% PATCH TP SCH (09:43)
--- NOTE | 2019-08-14 10:30 | NUR ---
Dr Harris in with pt. She displays increased hr, resp rate and reports dyspnea. Dr Harris discussed plan with patient and has ordered to schedule thoracentesis for Friday.
[2019-08-14] MEDS: HYDROMORPHONE 1MG/1ML INJ IV PRN ×2 (12:20→23:05)
--- NOTE | 2019-08-14 15:20 | NUR ---
BP 86/61, HR 102. Diluadid 1mg has been given per Dr Durham orders and discussing comfort care with family. Pt is talking when prompted and reports no discomfort, or dyspnea. Dr Arenas aware and advises hold vasopressors for now. Will monitor.
[2019-08-14] MEDS ORDERED: ZOLPIDEM TARTRATE 10 MG TAB PO PRN (22:00)
[2019-08-15] VITALS (22 sets, daily range): BP systolic 83–140; BP diastolic 46–90
--- NOTE | 2019-08-15 00:49 | Progress Note ---
DATE: 08/14/2019 Cardiology Progress Note SUBJECTIVE: The patient complained of shortness of breath earlier today and was given Dilaudid with improvement in her symptoms. She is now at sleep and did not answer any questions. OBJECTIVE: VITAL SIGNS: Temperature 97.2 degrees, pulse 104, respiratory rate 12, blood pressure 84/60, oxygen saturation 96% on 4 L nasal cannula. GENERAL: Elderly frail woman, asleep, in no acute distress. LUNGS: Decreased breath sounds in bilateral bases. CARDIOVASCULAR: Tachycardic. Systolic murmur 2/6 at the right upper sternal border. ABDOMEN: Soft, nontender. EXTREMITIES: Edematous. CARDIAC MEDICATIONS: None. LABORATORY DATA: WBC 12.12, hemoglobin 12.4, hematocrit 36.8, and platelets 251. Sodium 130, potassium 3.9, chloride 99, CO2 of 19, BUN 39, and creatinine 2.25. Urine culture, gram-negative bacilli. TELEMETRY: Sinus tachycardia, episode of atrial fibrillation with rapid ventricular response overnight. IMPRESSION: 1. Oucav-it-asajvzu systolic heart failure. 2. Type 2 myocardial infarction secondary to severe anemia and congestive heart failure. 3. Anemia secondary to gastrointestinal bleeding. 4. Aortic stenosis. 5. Metastatic rectal cancer. 6. Hypotension. RECOMMENDATION: Continue supportive care. Given anemia with GI bleeding, she is not a candidate for anti-platelet therapy or anticoagulation. Antibiotics per Primary Service. Monitor the patient closely on telemetry. Given the patient's multiorgan failure, her prognosis is poor. Recommend conservative medical therapy. Thank you for this consult. We will continue to follow. Abby Gomez MD ABS/MODL /[id number]
[2019-08-15] MEDS: SODIUM CHLORIDE 0.9% 1000ML 1,000 ML IV SCH ×3 (03:10→17:38)
[2019-08-15] MEDS ORDERED: ALTEPLASE RECOMBINANT 2 MG/2 ML VIAL IV PRN (03:15)
[2019-08-15 05:42] LABS: BASOPHILS % 0.2 % (0.0-1.0); EOSINOPHILS # (AUTO) 0.1 (0.0-0.4); EOSINOPHILS % 0.6 % (0.0-6.0); HEMATOCRIT 34.5 % (34.2-44.1); HEMOGLOBIN 11.7 g/dL (12.0-16.0); LYMPHOCYTES # (AUTO) 0.5 (1.0-3.2); LYMPHOCYTES % 6.2 % (18.0-39.1); MEAN CORPUSCULAR HEMOGLOBIN 29.3 pg (28-32); MEAN CORPUSCULAR HGB CONC 33.9 g/dL (31-35); MEAN CORPUSCULAR VOLUME 86.5 fL (81-99); MONOCYTES # (AUTO) 0.5 (0.2-0.8); MONOCYTES % 6.6 % (4.4-11.3); NEUTROPHILS % 85.8 % (38.7-80.0); PLATELET COUNT 181 x10e3/uL (140-360); RED BLOOD COUNT 3.99 x10e6/uL (3.6-5.1); RED CELL DISTRIBUTION WIDTH 15.8 % (11.7-14.4)
[2019-08-15] MEDS: CEFEPIME 2 GM/NS 0.9% 100 ML 100 ML IV SCH ×2 (05:55→17:38)
[2019-08-15 06:06] LABS: ALBUMIN 1.7 g/dL (3.5-5.0); ALBUMIN/GLOBULIN RATIO 0.5 (0.8-2.0); ANION GAP 12.5 mmol/L (8-16); CALCIUM 8.8 mg/dL (8.4-10.2); CREATININE, SERUM 1.75 mg/dL (0.57-1.11); MAGNESIUM 1.4 MG/DL (1.3-2.1); POTASSIUM 3.5 mmol/L (3.5-5.1)
[2019-08-15] MEDS: HYDROMORPHONE 1MG/1ML INJ IV PRN ×2 (07:08→16:46)
--- NOTE | 2019-08-15 07:14 | NUR ---
Spoke with Dr. Arenas regarding patients port not returning blood. Order for cathflo obtained. After administration and dwell time of 30 minutes, still no blood return. Maintaining aseptic technique, needle was exchanged for a 25G, dressed with CHG gel. No blood return after needle exchange. NS @ 100 infusing with no complications.
[2019-08-15 07:17] LABS: LYMPHOCYTES % (MANUAL) 3 % (19-48); MONOCYTES % (MANUAL) 11 % (3.4-9.0); NEUTROPHILS % (MANUAL) 86 % (40-74)
[2019-08-15] MEDS: LIDOCAINE 4% PATCH TP SCH (08:09)
[2019-08-15] MEDS: PANTOPRAZOLE 40 MG 10ML VIAL IV SCH ×2 (08:09→16:45)
[2019-08-16] VITALS (27 sets, daily range): BP systolic 91–128; BP diastolic 59–92
[2019-08-16] MEDS: HYDROMORPHONE 1MG/1ML INJ IV PRN ×5 (00:27→21:51)
--- NOTE | 2019-08-16 00:28 | NUR ---
Weeping noted on L hand coming from under previous small tegaderm dressing. Dressing removed and a skin tear 2x2 noted. Site cleansed with saline, petrolatum dressing, gauze, and covered with tegaderm dressing.
--- NOTE | 2019-08-16 01:14 | Progress Note ---
DATE: 08/15/2019 Cardiology Progress Note SUBJECTIVE: The patient is confused. No history could be obtained from the patient. OBJECTIVE: VITAL SIGNS: Temperature 97.6 degrees, pulse 120, respiratory rate 20, blood pressure 121/82, and oxygen saturation 97% on 4 L nasal cannula. GENERAL: Elderly frail, chronically ill-appearing woman, in no acute distress. Awake, but confused. LUNGS: Decreased breath sounds at bilateral bases. CARDIOVASCULAR: Tachycardic. Systolic murmur 2/6 at the right upper sternal border. ABDOMEN: Soft, nontender. EXTREMITIES: Edematous. CARDIAC MEDICATIONS: None. LABORATORY DATA: WBC 8.13, hemoglobin 11.7, hematocrit 34.5, platelets 181. Sodium 132, potassium 3.5, chloride 104, CO2 19, BUN 38, creatinine 1.75. TELEMETRY: Sinus tachycardia. IMPRESSION: 1. Acute on chronic systolic heart failure. 2. Type 2 myocardial infarction secondary to severe anemia, congestive heart failure. 3. Anemia secondary to GI bleeding. 4. Aortic stenosis. 5. Paroxysmal atrial fibrillation with rapid ventricular response. 6. Metastatic rectal cancer. 7. Hypotension. RECOMMENDATIONS: Continue supportive care. Given anemia with GI bleeding. She is not a candidate for anti-platelet therapy or anticoagulation. Antibiotics per primary service. Monitor patient closely on telemetry. Given the patient's comorbid conditions, her prognosis is poor. Recommend conservative medical therapy. Thank you for this consult. We will continue to follow. Abby Gomez MD ABS/MODL /[id number] MTDD
[2019-08-16] MEDS: SODIUM CHLORIDE 0.9% 1000ML 1,000 ML IV SCH (03:25)
[2019-08-16 05:21] LABS: BASOPHILS % 0.1 % (0.0-1.0); EOSINOPHILS % 0.1 % (0.0-6.0); HEMATOCRIT 32.3 % (34.2-44.1); LYMPHOCYTES # (AUTO) 0.9 (1.0-3.2); LYMPHOCYTES % 8.8 % (18.0-39.1); MEAN CORPUSCULAR HEMOGLOBIN 29.3 pg (28-32); MEAN CORPUSCULAR HGB CONC 34.1 g/dL (31-35); MEAN CORPUSCULAR VOLUME 85.9 fL (81-99); MONOCYTES # (AUTO) 0.7 (0.2-0.8); MONOCYTES % 6.6 % (4.4-11.3); NEUTROPHILS # (AUTO) 8.2 (2.1-6.9); NEUTROPHILS % 83.1 % (38.7-80.0); PLATELET COUNT 167 x10e3/uL (140-360); RED BLOOD COUNT 3.76 x10e6/uL (3.6-5.1); RED CELL DISTRIBUTION WIDTH 15.9 % (11.7-14.4)
[2019-08-16 05:42] LABS: ALBUMIN 1.6 g/dL (3.5-5.0); ALBUMIN/GLOBULIN RATIO 0.4 (0.8-2.0); ANION GAP 12.4 mmol/L (8-16); CALCIUM 9.1 mg/dL (8.4-10.2); CREATININE, SERUM 1.3 mg/dL (0.57-1.11); POTASSIUM 3.4 mmol/L (3.5-5.1)
[2019-08-16] MEDS: CIPROFLOXACIN 400 MG/D5W 200ML 200 ML IV SCH ×3 (05:58→18:00)
[2019-08-16] MEDS ORDERED: LEVALBUTEROL HCL SOLN NEBU 1.25 MG/3 ML NEB ONE (07:54)
[2019-08-16] MEDS ORDERED: IPRATROPIUM BROMIDE 0.02% 2.5 ML NEB NEB PRN (08:00)
[2019-08-16] MEDS ORDERED: LEVALBUTEROL HCL SOLN NEBU 1.25 MG/3 ML NEB INH PRN (08:00)
[2019-08-16] MEDS ORDERED: FUROSEMIDE INJ 10 MG/ML 2 ML VIAL IV ONE (08:30)
[2019-08-16] MEDS: LIDOCAINE 4% PATCH TP SCH (08:45)
[2019-08-16] MEDS: PANTOPRAZOLE 40 MG 10ML VIAL IV SCH ×2 (08:45→18:00)
--- NOTE | 2019-08-16 13:32 | Progress Note ---
DATE: 08/16/2019 Cardiology Progress Note SUBJECTIVE: Unable to obtain a review of systems. The patient was placed on BiPAP this morning. OBJECTIVE: VITAL SIGNS: Temperature is 98, heart rate is 107, respiratory rate is 24, blood pressure is 126/59, and oxygen saturation is 95% on BiPAP. GENERAL: She is a chronically ill-appearing elderly woman, in respiratory distress. CARDIOVASCULAR: Tachycardic. Regular rhythm. Murmur at the right sternal border. LUNGS: Diminished breath sounds with scattered rhonchi. ABDOMEN: Soft, nondistended, and nontender. CARDIOVASCULAR MEDICATIONS: Reviewed. LABORATORY DATA: Shows hemoglobin 11, creatinine 1.3, potassium of 3.4. TELEMETRY: Monitoring revealed sinus tachycardia. IMPRESSION: 1. Sfxak-bg-ksvuxza systolic congestive heart failure. 2. Diabetes type 2. 3. Myocardial infarction. 4. Anemia secondary to gastrointestinal bleed. 5. Aortic stenosis. 6. Paroxysmal atrial fibrillation. 7. Sinus tachycardia. 8. Metastatic rectal cancer. 9. Hypotension. RECOMMENDATIONS: Continue supportive care including BiPAP for improvement of oxygen levels. She is not on any anticoagulation or anti-platelet therapy due to significant anemia with GI bleed. Continue monitor on telemetry. Overall prognosis is very poor given metastatic disease and advanced age. DO SOFIA Comer/LEEANNL /[id number]
--- NOTE | 2019-08-16 14:16 | Diagnostic Imaging Report ---
PROCEDURE: Ultrasound-guided therapeutic thoracentesis Procedural Personnel Attending physician(s): López Mireles MD Fellow physician(s): None Resident physician(s): None Advanced practice provider(s): None Pre-procedure diagnosis: Right pleural effusion, respiratory distress Post-procedure diagnosis: Same Indication: Pleural effusion with compromised respiration Additional clinical history: None Complications: No immediate complications. IMPRESSION: Ultrasound-guided thoracentesis with drainage of 1200 mL of serous fluid. Plan: Resume care by clinical team. PROCEDURE SUMMARY: - Limited thoracic ultrasound - Ultrasound-guided thoracentesis - Additional procedure(s): None PROCEDURE DETAILS: Pre-procedure Consent: Informed consent for the procedure including risks, benefits and alternatives was obtained and time-out was performed prior to the procedure. Preparation: The site was prepared and draped using maximal sterile barrier technique including cutaneous antisepsis. Anesthesia/sedation Level of anesthesia/sedation: No sedation Limited thoracic ultrasound Limited thoracic ultrasound was performed using a curved transducer. A safe window for thoracentesis was identified. Left hemithorax findings: Not investigated Right hemithorax findings: Moderate pleural effusion Thoracentesis Local anesthesia was administered. The pleural space was accessed under real-time ultrasound guidance and fluid return confirmed position. The fluid was drained. The catheter was removed, and a sterile bandage was applied. Catheter placed: 5F Elisaeh Post-drainage hemithorax findings: No visible pleural effusion Additional Details Additional description of procedure: None Equipment details: None Specimens removed: Pleural fluid Estimated blood loss (mL): Less than 10 Standardized report: [id number] Attestation Signer name: López Mireles MD I attest that I was present for the entire procedure. I reviewed the stored images and agree with the report as written. Signed by: López Mireles MD on 08/16/2019 2:13 PM
--- NOTE | 2019-08-16 15:01 | NUR ---
bedside thoracentesis to right side completed. 1L removed. pt tolerated procedure well. pt remains comfortable with family at bedside. vital signs stable. bath given, linens changed
[2019-08-16 15:03] LABS: BODY FLUID APPEARANCE SL.CLOUDY; BODY FLUID COLOR YELLOW; BODY FLUID TYPE PLEURAL
[2019-08-16 16:31] LABS: RBC,BODY FLUID 21 cells/uL; WBC,BODY FLUID 72 cells/uL
[2019-08-16] MEDS ORDERED: SODIUM CHLORIDE 0.9% 1000ML 1,000 ML ONE (17:09)
[2019-08-16 17:18] LABS: LYMPHOCYTES,BODY FLUID 15 %; MONO/MACROPHG,BODY FLUID 30 %; NEUTROPHILS,BODY FLUID 49 %; OTHER CELLS,BODY FLUID 6 %
--- NOTE | 2019-08-16 19:33 | NUR ---
Nutrition Intervention Note RD Recommendation(s) for Physician: -Continue current diet regimen as ordered -Continue Ensure Compact TID to increase PO intake -Rec Multivitamin with vitamin C daily for stage I pressure ulcer -The patient meets criteria for MODERATE protein-calorie malnutrition. Plan of Care: RD following, monitoring for tolerance and adequacy, ONS rec Nutrition reason for involvement: Diagnosis RD Assessment 08/16 - Pt is an 84 year old female admitted with anal cancer, acute renal failure, CHF, GI bleed, hypoglycemia, hyponatremia, non-STEMI, sepsis, and UTI. Pt was placed on BiPAP this morning per chart. It is also recorded that pt is confused; therefore, spoke to family members at bedside. Family members declared that pt has a poor appetite for > 1 month, but drinks nutrition supplements (Ensure x1/day). Family members reported that pt has lost weight and had weighed 140 lbs 2 years ago and now weighs 97 lbs. Family member was unsure of weight change in the past year. However, per chart, pt had a weight of 112 lbs upon admission. Pt has occasional nausea. Family member was interested in pt receiving Ensure 2x/day. Pt also showed moderate signs of muscle and fat depletion at time of visit. ONS has been ordered. Will continue to monitor and follow. Principal Problems/Diagnoses: anal cancer, acute renal failure, CHF, GI bleed, hypoglycemia, hyponatremia, non-STEMI, sepsis, and UTI PMH: metastatic rectal cancer, CHF Past surgical history: Cholecystectomy, appendectomy, diversion colostomy, and oophorectomy. I/O: +2850/-750 GI: flat, soft, non-tender abdomen Skin: stage I sacrum wound, no wound care consult Labs: (08/16) Na 135, K 3.4, BUN 33, Creat 1.30 Meds: (08/16) protonix, heparin, Zofran, norepinephrine, ciprofloxacin Ht: 61 inches Wt: 112 lbs (upon admission, 08/12) BMI: 21.2 kg/m2 IBW: 105 lbs +/- 10% Malnutrition Evaluation (08/16) The patient meets criteria for MODERATE protein-calorie malnutrition. Energy intake: <50% of estimated energy requirements for >1 month Weight loss: 20% in 2 years based on pts usual wt per family member Fat loss: Moderate tricep region Muscle loss: Moderate clavicle protruding, temporal depletion, squaring of shoulders Supporting Evidence: Fluid accumulation: per chart, pts extremities are edematous Functional Status: unable to evaluate Nutrition Prescription (Diet Order): GI Soft, Ensure Compact Estimated Nutritional Needs: Calories: 0483-2653 kcal (25-35 kcal/kg ) Weight used: 112 lbs Protein: 51 76 g/day (1-1.5 g/kg) Weight used: 112 lbs Diet Adequacy: Not meeting calorie needs, Not meeting protein needs Tolerance: Tolerance pending (pt has poor intake) Diet Education Needs Assessment: Diet education not indicated. Nutrition Care Level: High Nutrition Diagnosis: Moderate protein-kcal malnutrition related to chronic illness as evidenced by <75% of energy needs for > 1 month, reported weight loss, and moderate muscle/fat depletion. Goal: Patient will meet 75-100% of estimated needs by follow up Progress: N/A Interventions: Fiber restricted modified diet, Commercial beverage, Multivitamin/mineral supplement therapy Monitoring/Evaluation: -Total energy intake, Total protein intake, Modified diet, Liquid supplement, Weight change Signed: Kirsten Bain, MS, RD, LD
[2019-08-16] MEDS: HEPARIN SOD (PORCINE) 5,000 UNIT/ML VIAL SC SCH (21:53)
--- NOTE | 2019-08-16 23:54 | Progress Note ---
DATE: 08/16/2019 SUBJECTIVE: The patient had only 1 episode of small rectal bleeding. No abdominal pain. Dr. Durham has discussed with the family to consider hospice. REVIEW OF SYSTEMS: The patient is quite lethargic and drowsy, therefore, review of systems cannot be ascertained. MEDICATIONS: Reviewed as per MAR. PHYSICAL EXAMINATION: VITAL SIGNS: Temperature 98.2, pulse ranging from 114 to 112, respirations from 14 to 15, blood pressure 114/70, oxygen saturation 99% on BiPAP. GENERAL: Lethargic, drowsy, elderly frail lady, in no apparent distress. ABDOMEN: Soft, nondistended, nontender. No mass or hernia. Positive bowel sounds. LABORATORY DATA: WBC 9.9, hemoglobin 11, hematocrit 32.3, MCV 85.9, and platelet count 167. PT 14.2, INR 1.05. Chemistry; sodium 135, potassium 3.4, chloride 108, bicarb 18, BUN 33, creatinine 1.30, and glucose 111. Hemoglobin is maintaining from 11.7 to 11. IMPRESSION: 1. Acute blood loss anemia from rectal/vaginal bleeding. The patient has history of rectal/uterine cancer. 2. Hyponatremia has resolved, sodium is 135 now. 3. Status post right thoracentesis. 4. Acute blood loss manifested as rectal or vaginal bleeding from uterine/rectal cancer. PLAN: Hemoglobin remains stable. No endoscopy indicated in this elderly patient with quite advanced rectal/uterine malignancy. Shawn Collazo MD SA/SAMSON /[id number]
[2019-08-17] VITALS (17 sets, daily range): BP systolic 90–117; BP diastolic 55–95
[2019-08-17 04:56] LABS: BASOPHILS % 0.1 % (0.0-1.0); EOSINOPHILS # (AUTO) 0.1 (0.0-0.4); EOSINOPHILS % 0.7 % (0.0-6.0); LYMPHOCYTES # (AUTO) 0.6 (1.0-3.2); LYMPHOCYTES % 7.7 % (18.0-39.1); MEAN CORPUSCULAR HGB CONC 33.3 g/dL (31-35); MONOCYTES # (AUTO) 0.4 (0.2-0.8); MONOCYTES % 4.7 % (4.4-11.3); NEUTROPHILS # (AUTO) 6.3 (2.1-6.9); NEUTROPHILS % 85.3 % (38.7-80.0); PLATELET COUNT 167 x10e3/uL (140-360); RED BLOOD COUNT 3.45 x10e6/uL (3.6-5.1); RED CELL DISTRIBUTION WIDTH 15.9 % (11.7-14.4)
[2019-08-17] MEDS: CIPROFLOXACIN 400 MG/D5W 200ML 200 ML IV SCH ×2 (04:58→16:30)
[2019-08-17 05:16] LABS: ANION GAP 10.9 mmol/L (8-16); CALCIUM 9.1 mg/dL (8.4-10.2); CREATININE, SERUM 1.13 mg/dL (0.57-1.11)
[2019-08-17 05:22] LABS: POTASSIUM 2.9 mmol/L (3.5-5.1)
[2019-08-17] MEDS ORDERED: POTASSIUM CHLORIDE 20MEQ/100ML 200 ML IV ONE (05:30)
[2019-08-17] MEDS: HEPARIN SOD (PORCINE) 5,000 UNIT/ML VIAL SC SCH ×2 (08:17→20:34)
[2019-08-17] MEDS: LIDOCAINE 4% PATCH TP SCH (08:17)
[2019-08-17] MEDS: PANTOPRAZOLE 40 MG 10ML VIAL IV SCH ×2 (08:17→16:30)
--- NOTE | 2019-08-17 10:40 | NUR ---
ASSESSMENT: Spiritual concern Pt's daughter accepting of mother's illness. Pt's daughter states her mother "is in God's hands now." Pt's daughter also states she and her family are leaving for a trip to the [facility] to visit her son soon and decided not to cancel the trip in spite of her mother's illness. Pt's daughter and great grandson at bedside. Intervention: Provided unhurried empathic listening and facilitated illness review. Provided information on how to reach director of publications. Outcome: Pt's daughter expressed appreciation for visit. GALO KNUTSON [employer] Spiritual Care Department O: [phone] Pager: [phone] ([phone] calling from)
--- NOTE | 2019-08-17 12:04 | NUR ---
WENT IN ROOM AND SISTER WAS THERE SPOKE WITH HER ABOUT HOSPICE ORDER, SHE STATES HER SISTER PASSED 3 MONTHS AGO IN [place] BUT WANTS A LOCAL COMPANY BUT TO ASK HER DAD WHOM THEY CALL [facility]. STATES ON FACE SHEET LEGAL NAME IS MALINA. CALLED MALINA AND HER GAVE VERBAL PERMISSION FOR [facility] TO CONTACT THEM FOR EDUCATIONS. CALLED JAKE SHE WILL MEET WITH FAMILY AT 1PM AND LET US KNOW.
[2019-08-17] MEDS: HYDROMORPHONE 1MG/1ML INJ IV PRN (17:49)
--- NOTE | 2019-08-17 17:50 | NUR ---
per family and hospice, patient to be discharged home on hospice ([facility]) tomorrow after medical equipment is delivered. all of family is in agreement. patient will open eyes but not verbally respond or follow commands at this time. pain medication given as she is breathing more labored. patient increased restlessness.
--- NOTE | 2019-08-18 02:42 | Consultation ---
DATE OF CONSULTATION: 08/14/2019 HISTORY OF PRESENT ILLNESS: Harmony White is an 84-year-old white female, very well known to me for rectal cancer, which was treated with systemic chemotherapy and external beam radiation therapy. The patient subsequently had local relapse, possibility of local resection was raised, however, the patient will require a pelvic exenteration. However, the patient has decided the supportive care and has been treated with best supportive care for quite some time now. SOCIAL HISTORY: Noncontributory. FAMILY HISTORY: Noncontributory. ALLERGIES: REPORTED TO MORPHINE AND IODINE. MEDICATIONS: At this time. 1. Cefepime. 2. Levophed. 3. Protonix. 4. Zolpidem. 5. Dextrose. REVIEW OF SYSTEMS: HEENT: Normal. CARDIAC: Normal. RESPIRATORY: Normal. 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 PHYSICAL EXAMINATION: GENERAL: Cachectic female, anemic, no palpable adenopathy. HEART: Tachycardic. LUNGS: Clear. ABDOMEN: Soft. Colostomy is seen. RECTAL AND VAGINAL: Examination could not be done. CENTRAL NERVOUS SYSTEM: Could not be done. LABORATORY DATA: Lab investigations of interest show a hemoglobin of 10, hematocrit of 29.8, white count 15,700, and platelets 383,000. BUN 35, creatinine 3.34, sodium 122, potassium 4.1, chloride is 83, CO2 of 26, bilirubin 0.4, SGOT 37, SGPT 10, and alkaline phosphatase 213. IMPRESSION: 1. Cancer of the rectum. 2. Colovesicular fistula. 3. 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 4. Status post "diverting colostomy.". 5. Anemia of chronic disease and blood loss. 6. Hyponatremia. 7. Chronic renal failure. PLAN, COMMENTS, AND SUGGESTIONS: Suggest best supportive care only as this patient is terminally ill. MD BALDOMERO Nayak/MODL /[id number]
[2019-08-18 04:16] VITALS: BP 114/76
[2019-08-18] MEDS: CIPROFLOXACIN 400 MG/D5W 200ML 200 ML IV SCH (05:09)
--- NOTE | 2019-08-18 06:25 | NUR ---
Per Dr. Arenas, OK to discharge today once hospice equipment is set up at the patient's home and ready for use.
--- NOTE | 2019-08-18 07:26 | NUR ---
pt to go home on hospice today, currently resting comfortably.
[2019-08-18 07:38] VITALS: BP 129/85
[2019-08-18] MEDS: PANTOPRAZOLE 40 MG 10ML VIAL IV SCH (09:27)
[2019-08-18] MEDS: LIDOCAINE 4% PATCH TP SCH (09:27)
[2019-08-18] MEDS: HEPARIN SOD (PORCINE) 5,000 UNIT/ML VIAL SC SCH (09:28)
[2019-08-18 12:00] VITALS: BP 117/79
--- NOTE | 2019-08-18 12:47 | NUR ---
Called Steffi Villa with [facility] regarding update on transportation. States they are waiting for medications to be delivered. ETA for transport will be 1500. LUAN Hanna updated.
--- NOTE | 2019-08-18 16:20 | NUR ---
pt dc home with hospice. stable.
--- NOTE | 2019-08-30 03:21 | Discharge Summary ---
DISCHARGE DIAGNOSES: 1. Stage IV anal cancer. 2. Anemia. 3. Acute respiratory failure with hypoxia. 4. Congestive heart failure, diastolic. HISTORY OF PRESENT ILLNESS AND HOSPITAL COURSE: See hospital chart for full details. The patient is an elderly lady who presented with acute shortness of breath, hypoxia, pulmonary edema secondary to diastolic heart failure, who has a history of stage IV anal cancer that she does not want to do anything for and due to her worsening weakness as well as weight loss and anorexia, I had a long talk with the family, where they all agree that the patient would benefit from being on hospice and so once hospice was ordered and obtained, she was able to be transferred home with hospice care per the family wishes. Please see also chart for full details. MD DANN Vila/SAMSON /[id number]
== END 2019-08-18 16:00 | disposition hospice, inpatient (51) | DRG 871 ==
LOC: ER 18:02 → ERHOLD 20:16 → ICU 23:00
PROVIDERS: ADMIT Internal Medicine; ATTEND Internal Medicine
PROC: 30233N1 Transfusion of Nonautologous Red Blood Cells into Peripheral Vein, Percutaneous Approach (ICD-10-PCS; 2019-08-13)
PROC: 30233N1 Transfusion of Nonautologous Red Blood Cells into Peripheral Vein, Percutaneous Approach (ICD-10-PCS; 2019-08-13)
PROC: 0W993ZZ Drainage of Right Pleural Cavity, Percutaneous Approach (ICD-10-PCS; principal; 2019-08-16)
DX: A41.9 Sepsis, unspecified organism (principal); I50.23 Acute on chronic systolic (congestive) heart failure; J96.01 Acute respiratory failure with hypoxia; N17.0 Acute kidney failure with tubular necrosis; I21.A1 Myocardial infarction type 2; N39.0 Urinary tract infection, site not specified; K92.2 Gastrointestinal hemorrhage, unspecified; E87.1 Hypo-osmolality and hyponatremia; N32.1 Vesicointestinal fistula; C19 Malignant neoplasm of rectosigmoid junction; C79.11 Secondary malignant neoplasm of bladder; C79.82 Secondary malignant neoplasm of genital organs; D62 Acute posthemorrhagic anemia; I13.0 Hypertensive heart and chronic kidney disease with heart failure and stage 1 through stage 4 chronic kidney disease, or unspecified chronic kidney disease; D63.8 Anemia in other chronic diseases classified elsewhere; N18.3 Chronic kidney disease, stage 3 (moderate); E87.6 Hypokalemia; I35.0 Nonrheumatic aortic (valve) stenosis; I48.0 Paroxysmal atrial fibrillation; Z79.01 Long term (current) use of anticoagulants; Z66 Do not resuscitate
CPT/HCPCS: 32555; 36415; 36600; 51700; 71045; 73020; 76604; 80048; 80053; 80061; 81001; 82550; 82553; 82948; 83605; 83615; 83735; 83880; 84157; 84484; 85025; 85610; 85730; 86850; 86900; 86920; 87040; 87070; 87086; 87186; 87205; 89051; 93005; 93306; 94640; 94660; 99285; J1160; J1170; J1644; J1940; J2997; J3370; J3480; J7030; J7050; P9016; P9047